=== PATIENT | female | born 1950 | race Caucasian/White ===

== ENCOUNTER → 2020-12-02 09:40 | Outpatient (BNVA) | payer MEDICARE, OTHER, SELFPAY | PROVIDERS: PCP Family Medicine | DX: N32.81 Overactive bladder (principal) | CPT/HCPCS: 99212 ==

== ENCOUNTER → 2021-01-21 09:20 | Outpatient (BNVA) | payer MEDICARE, OTHER, SELFPAY | PROVIDERS: PCP Family Medicine | DX: N32.81 Overactive bladder (principal) | CPT/HCPCS: Q3014 ==

== ENCOUNTER 2021-05-05 12:04 | Outpatient (REF) | payer MEDICARE, OTHER, SELFPAY ==
[2021-05-05 14:31] LABS: Blood Urea Nitrogen 16 mg/dL (9-16); Estimated Glomerular Filt Rate > 60
== END 2021-05-05 12:05 | disposition home or self-care (01) ==
LOC: HO.10HDL 12:04
PROVIDERS: Visit Provider Otolaryngology
DX: Z01.812 Encounter for preprocedural laboratory examination (principal); J38.6 Stenosis of larynx
CPT/HCPCS: 36415; 82565; 84520

== ENCOUNTER 2021-06-02 08:01 | Outpatient (REF) | payer MEDICARE, OTHER, SELFPAY ==
--- NOTE | ~2021-06-02 | CT_ITS ---
EXAMINATION: CT CHEST WITH CONTRAST CLINICAL INFORMATION: Congenital subglottic stenosis. COMPARISON: None TECHNIQUE: Multidetector volumetric CT imaging of the chest was obtained after the administration of 65 mL of Omnipaque 350 intravenous contrast without immediate adverse reactions. Axial MIP volume rendering provided. Sagittal and coronal reformatted images were obtained. This CT examination was performed using dose optimization techniques as appropriate, variously including the following: *Automated exposure control *Adjustment of mA and/or kV according to patient size (this includes techniques or standardized protocols for targeted exams where dose is matched to indication/reason for exam; i.e. extremities or head) *Use of iterative reconstruction technique DLP: 280 mGy-cm FINDINGS: LUNGS: There is a small 3 mm right upper lobe nodule axial image 22 series 5. The lungs are otherwise clear. No endobronchial or endotracheal lesion is seen. No airway narrowing is appreciated. MEDIASTINUM: The left lobe of the thyroid gland is not seen and may have been removed. There is a small calcification in the inferior right lobe. There are no enlarged hilar or mediastinal lymph nodes. The heart does not appear enlarged. There is no pericardial effusion. The thoracic aorta is normal in caliber. There may be a small esophageal hernia. PLEURA: There is no pleural effusion. No pleural mass or thickening. There is a small left posterior medial diaphragmatic hernia containing fat. AXILLA: No lymphadenopathy. UPPER ABDOMEN: There is a large ventral hernia containing fat and transverse colon. This is only partially visualized. There are left renal cysts, largest measuring 9.5 x 10 cm. There is a large partially visualized stone in the central left kidney. This measures at least 1.3 x 1.6 cm. There is central high attenuation in the right kidney questionable for a stone versus excreted contrast. OSSEOUS STRUCTURES: There are degenerative changes of the spine. CT/CT chest w con IMPRESSION: 3 mm right upper lobe pulmonary nodule. According to the UPDATED 2017 Fleischner Society recommendations, the advised follow-up imaging for less than 6 mm nodule: Low risk, no chest CT followup and high risk, optional chest CT followup in one year. No endobronchial or endotracheal lesion or airway narrowing seen. Left lobe of thyroid gland is not seen. Small posterior medial diaphragmatic hernia containing fat. Large partially visualized ventral hernia containing fat and transverse colon. Left renal cysts. Large left renal stone. Fleischner guidelines were followed.
[2021-06-02] MEDS: iohexoL 350 MG/ML 100 ML INFUS..BTL IV (09:26)
== END 2021-06-02 08:02 | disposition home or self-care (01) ==
LOC: HO.CT 08:01
PROVIDERS: PCP Family Medicine; Visit Provider Otolaryngology
DX: Q31.1 Congenital subglottic stenosis (principal)
CPT/HCPCS: 71260; Q9967

== ENCOUNTER 2021-08-17 12:34 | Emergency (ER) | payer MEDICARE, OTHER, SELFPAY ==
--- NOTE | ~2021-08-17 | US_ITS ---
EXAMINATION: US VENOUS ULTRASOUND WITH DOPPLER LOWER EXTREMITY, BILATERAL CLINICAL INFORMATION: Edema. COMPARISON: 06/26/2013. TECHNIQUE: Ultrasound of the deep veins is performed from the hip to the calf with compression sonography and color and pulse Doppler assessment. Spectral analysis with color-flow imaging is performed. FINDINGS: RIGHT: There is normal venous compression and respiratory variation and augmented flow. The visualized common femoral vein, superficial femoral vein, profunda femoral vein and popliteal vein shows no evidence of deep venous thrombosis. The calf veins were not visualized due to overlying subcutaneous edema. There is a 2.1 x 1.4 x 1.6 cm cyst in the right popliteal fossa with internal low-level echoes. LEFT: There is normal venous compression and respiratory variation and augmented flow. The visualized common femoral vein, superficial femoral vein, profunda femoral vein and popliteal vein shows no evidence of deep venous thrombosis. The calf veins were not visualized due to overlying subcutaneous edema. There is no significant popliteal fossa cyst. If the patient's symptoms persist, followup ultrasound in 5 days 7 days might be of value to exclude proximal propagation from a non-visualized calf vein. US/US venous duplex LE BI IMPRESSION: No DVT demonstrated in the lower extremities, with the caveat that the peroneal veins were not visualized due to overlying subcutaneous edema. There is a 2.1 cm cyst in the right popliteal fossa with internal low-level echoes. Clinical correlation for superimposed infection of this cyst is recommended, and a follow-up ultrasound should be obtained to ensure adequate resolution/stability.
--- NOTE | ~2021-08-17 | XR_ITS ---
EXAMINATION: XR CHEST CLINICAL INFORMATION: Leg swelling. COMPARISON: CT chest dated from 06/02/2021. TECHNIQUE: 2 views of the chest were obtained. FINDINGS: Normal appearance of the cardiomediastinal silhouette. No focal airspace opacities, pleural effusions or pneumothorax. No acute osseous abnormalities. Thoracic spondylosis. XR/XR chest 2V IMPRESSION: No acute cardiopulmonary findings.
[2021-08-17 12:56] VITALS: BP 150/80; PULSE 91; O2SAT 98
[2021-08-17 13:13] VITALS: BP 157/67; PULSE 88; RESP 18; TEMP 36.8; O2SAT 95; BMI 41.3
[2021-08-17 13:51] LABS: MANUAL DIFF FLAG NO
[2021-08-17 13:52] LABS: Basophils Absolute Auto 0.1 X10*3/uL (0.0-0.2); Basophils Percent Auto 0.7 % (0-2); Eosinophils Absolute Auto 0.4 X10*3/uL (0.0-0.4); Eosinophils Percent Auto 4.9 % (0-4); Hemoglobin 11.7 g/dl (12.0-16.0); Imm Gran Abs Auto 0.02 X10*3/uL (0.00-0.03); Imm Gran Pct Auto 0.2 % (0.0-0.4); Lymphocytes Absolute Auto 2.9 X10*3/uL (1.2-4.9); Lymphocytes Percent Auto 34.3 % (20-40); Mean Corpuscular HGB Conc 32.5 g/dl (31.0-35.0); Mean Corpuscular Hemoglobin 30.9 pg (27.0-33.0); Mean Platelet Volume 10.2 fL (9.4-12.3); Monocytes Absolute Auto 0.8 X10*3/uL (0.1-1.2); Monocytes Percent Auto 9.1 % (2-11); Neutrophils Absolute Auto 4.4 x10*3/uL (2.0-8.3); Neutrophils Percent Auto 50.8 % (45-73); Platelet Count 326 X10*3/uL (160-400); Red Blood Count 3.79 X10*6/uL (4.20-5.50); Red Cell Distribution Width 15.1 % (11.0-16.0); White Blood Count 8.6 X10*3/uL (4.8-10.8)
[2021-08-17 14:12] LABS: Anion Gap 14 (12-20); Blood Urea Nitrogen 13 mg/dL (9-16); Calcium 9.6 mg/dL (8.4-10.2); Carbon Dioxide 30 mmol/L (22-29); Chloride 103 mmol/L (96-108); Creatinine Clr Calc Pharmacy 79.1; Estimated Glomerular Filt Rate > 60; Glucose Random 133 mg/dL (60-115); Potassium 3.7 mmol/L (3.3-5.1); Sodium 143 mmol/L (135-145)
--- NOTE | 2021-08-17 15:23 | ED.EXTPRO ---
HPI - Extremity Problem General Chief complaint: General Medical <BRIDGER Rivas Last Filed: 08/17/21 17:56> Stated complaint: bilat feet swelling <BRIDGER Rivas Last Filed: 08/17/21 17:56> Time Seen by Provider: 08/17/21 15:12 <BRIDGER Rivas Last Filed: 08/17/21 17:56> Source: patient <BRIDGER Rivas Last Filed: 08/17/21 17:56> Mode of arrival: ambulatory <BRIDGER Rivas Last Filed: 08/17/21 17:56> Limitations: no limitations <BRIDGER Rivas Last Filed: 08/17/21 17:56> History of Present Illness HPI Narrative: 71-year-old female with a past medical history of hypertension and prediabetic presenting to the ED with complaints of bilateral lower extremity swelling over the past 4 days. She reports she has also noticed that she has had a cough with some wheezing. She denies ever having leg swelling in the past. She denies any recent travel, immobilization, recent surgery procedure, history of DVT or PE, PVD disease, recent illness, history of gout, fevers, chills, dizziness, headaches, neck pain/stiffness, trouble swallowing or breathing, chest pain or shortness of breath, dyspnea on exertion, orthopnea, palpitations, paresthesias, nausea/vomiting/diarrhea constipation, abdominal pain, weight gain, calf tenderness, history of cancer, rashes, recent falls or injuries or any other symptoms complaints or concerns at this time. <BRIDGER Rivas Last Filed: 08/17/21 17:56> MD Complaint: extremity swelling <BRIDGER Rivas Last Filed: 08/17/21 17:56> Onset (ago): day(s) (4) <BRIDGER Rivas Last Filed: 08/17/21 17:56> Pain Consistency: constant <BRIDGER Rivas Last Filed: 08/17/21 17:56> Location: left, right and lower extremity <BRIDGER Rivas Last Filed: 08/17/21 17:56> Radiation: none <BRIDGER Rivas Last Filed: 05/30/22 17:56> Relieving factors: nothing <BRIDGER Rivas Last Filed: 08/17/21 17:56> Exacerbating factors: nothing <BRIDGER Rivas - Last Filed: 08/17/21 17:56> Associated symptoms: denies other symptoms <BRIDGER Rivas Last Filed: 08/17/21 17:56> Related Data Home medications: Home Medications Medication Instructions Recorded Confirmed amitriptyline 25 mg tablet 25 - 50 mg PO BEDTIME PRN 12/02/20 12/02/20 amlodipine 10 mg tablet 10 mg PO DAILY 12/02/20 12/02/20 hydrochlorothiazide 12.5 mg tablet 12.5 mg PO DAILY 12/02/20 12/02/20 metformin 500 mg tablet,extended 500 mg PO DAILY 12/02/20 12/02/20 release 24 hr metoprolol succinate 100 mg 100 mg PO DAILY 12/02/20 12/02/20 tablet,extended release 24 hr antiarthritic combination no.2 900 mg PO 01/21/21 mg tablet (glucosamine-chondroitin) calcium carbonate 600 mg calcium 600 mg PO DAILY 01/21/21 (1,500 mg) tablet (Calcium) cholecalciferol (vitamin D3) 25 25 mcg PO DAILY 01/21/21 mcg (1,000 unit) capsule losartan 100 mg tablet 100 mg PO DAILY 01/21/21 Previous Rx's Medication Instructions Recorded oxybutynin chloride 10 mg 10 mg PO DAILY 30 Days #30 tab 12/09/20 tablet,extended release 24 hr vibegron 75 mg tablet (Gemtesa) 75 mg PO DAILY 30 Days #30 tab 01/21/21 compr.stocking,knee,long,x-lrg #12 ea 08/17/21 <BRIDGER Rivas - Last Filed: 08/17/21 17:56> Allergies/Adverse reactions: Allergies Allergy/AdvReac Type Severity Reaction Status Date / Time acetaminophen [From PERCOCET] AdvReac Unknown Headache Verified 01/21/21 09:21 hydrocodone [Vicodin] AdvReac Unknown Headache Verified 01/21/21 09:21 oxycodone [Percocet] AdvReac Unknown headache Verified 01/21/21 09:21 vicodin AdvReac Unknown headaches Uncoded 12/02/20 09:58 <BRIDGER Rivas Last Filed: 08/17/21 17:56> Review of Systems Review of Systems: Constitutional : No Weight loss, No Fever, No Chills, No Night Sweats, No Fatigue, No Malaise ENT/Mouth : No Hearing loss, No Ear Pain, No Nasal Congestion, No Sinus Pain, No Hoarseness, No sore throat, No Rhinorrhea, No Swallowing Difficulty Eyes: No Eye Pain, No Swelling, No Redness, No Foreign Body, No Discharge, No Vision Changes Cardiovascular : + lower extremity bilateral leg swelling, No Chest Pain, No SOB, No Dyspnea on Exertion, No Orthopnea, No Palpitations Respiratory : + cough/wheezing, No Sputum, No Smoke Exposure, No Dyspnea Gastrointestinal : No Nausea, No Vomiting, No Diarrhea, No Constipation, No abdominal Pain, No Hematochezia, No Melena Genitourinary : no irregular bleeding, No Dysuria, No Urinary Frequency, No Hematuria, No Urinary Incontinence, No Urgency, No Flank Pain, No Urinary Flow Changes, No Hesitancy Musculoskeletal : No joint pain, No Myalgias, No Joint Swelling Skin : No Skin Lesions, No rash Neuro : No Weakness, No Numbness, No Paresthesias, No Loss of Consciousness, No Dizziness, No Headache Psych : No Anxiety/Panic, No Depression, No SI/HI/AH/VH, No Social Issues, Heme/Lymph: No Bruising, No Bleeding,No Lymphadenopathy Endocrine : No Polyuria, No Polydipsia, No Temperature Intolerance <BRIDGER Rivas - Last Filed: 08/17/21 17:56> Yes all other systems are reviewed and are negative <BRIDGER Rivas Last Filed: 08/17/21 17:56> [facility] Past Medical History Attestation statement: The following information was validated with the patient. <BRIDGER Rivas Last Filed: 08/17/21 17:56> Source: old records reviewed and nursing notes reviewed <BRIDGER Rivas Last Filed: 08/17/21 17:56> Medical History: Medical History Aftercare following right elbow joint replacement surgery delivery affecting Frequency of urination Renal cyst Renal stone Urgency-frequency syndrome <BRIDGER Rivas Last Filed: 08/17/21 17:56> Surgical History: Surgical History H/O total hysterectomy <BRIDGER Rivas - Last Filed: 08/17/21 17:56> Social History Social History: Social History Alcohol intake: never Patient Tobacco Use Status: Never used Tobacco Advance Directives: No Advance Directives Information Provided: No <BRIDGER Rivas - Last Filed: 08/17/21 17:56> Physical Exam Vital Signs: Vital Signs: Last Vital Signs Temp 98.3 F 08/17/21 13:13 Pulse 75 08/17/21 16:35 Resp 16 08/17/21 16:35 BP 165/71 H 08/17/21 16:35 Pulse Ox 96 08/17/21 16:35 BMI result Body Mass Index 41.3 vital signs have been reviewed as normal and appeared to be correct. Blood pressure 157/67. Heart rate normal. Respiration rate normal. Temperature normal. Oxygen saturation normal. <BRIDGER Rivas - Last Filed: 08/17/21 17:56> Appearance: Alert. Oriented X3. No acute distress. Head: Normal external exam. Normocephalic. Atraumatic. Eyes: PERRLA. EOMI. Conjunctiva and sclera normal. Eyelids normal. ENT: Pharynx normal. Uvula midline. Moist mucous membranes. No lesions/ulcerations or masses noted on the tongue. Normal voice. No trismus noted. No drooling noted. No muffled voice noted. Neck: Normal inspection. Neck supple. FROM. No adenopathy. Thyroid Normal. No tracheal deviation noted. No crepitus is noted. No meningeal signs. No neck mass noted. No signs of trauma noted. CVS: Normal heart rate and rhythm. Heart sound normal. Pulses normal throughout. No murmurs/rales/gallops. Respiratory: No respiratory distress. Painless inspiration. Breath sounds normal. No wheezes/rales/rhonchi noted. Chest nontender. No crepitus is noted. No signs of trauma noted. No accessory muscle usage noted or decreased air movement noted. No signs of trauma. Abdomen: Soft and nontender. Bowel sounds normal in all 4 quadrants. No distention noted. No organomegaly noted. No visible injury noted. Back: Full range of motion noted. Nontender. No signs of trauma. Patient neuro intact bilaterally and distally on all 4 extremities. Patient's reflexes intact bilaterally and distally on all 4 extremities. No rashes/lesion/induration/fluctuance or signs of infection noted. Skin: Skin warm and dry. Normal skin color. Normal skin turgor. No rashes/lesions/lacerations noted. Extremities: + b/l lower extremity edema although no pitting edema. No calf tenderness is noted. Extremities exhibit normal range of motion and nontender. Neuro: Oriented X 3. No motor deficit. No sensory deficit. Reflexes normal. Normal steady gait. No focal neuro deficits noted. CN's II-XII intact bilaterally? Vascular: + radial pulses/+ 2 distal pedal pulses/+2 dorsalis pedis b/l. Normal cap refill. No cyanosis noted to upper extremity nails and lower extremity toes nails. <BRIDGER Rivas - Last Filed: 08/17/21 17:56> Course Course Course Narrative: 16:15pm - 71-year-old female with a past medical history of hypertension and prediabetic presenting to the ED with complaints of bilateral lower extremity swelling over the past 4 days. She reports she has also noticed that she has had a cough with some wheezing. She denies ever having leg swelling in the past. Plan: Labs, chest x-ray, EKG and re-evaluate <BRIDGER Rivas - Last Filed: 08/17/21 17:56> Reevaluation(s) Reevaluation #1: - labs return patient mild anemia. Carbon dioxide 30. Random glucose 133. BNP 47. Otherwise all other labs are within normal limits. - therefore at this time venous duplex ultrasound is pending of lower extremity to evaluate for possible DVT and chest x-ray patient most likely pedal edema if chest x-ray and venous duplex ultrasound of bilateral lower extremity negative. <BRIDGER Rivas - Last Filed: 08/17/21 17:56> Time: 17:28 <BRIDGER Rivas - Last Filed: 08/17/21 17:56> Reevaluation #2: - Venous duplex ultrasound of bilateral lower extremity negative for any DVT although reports possible superimposed infection where the cyst is located although patient does not have any erythema or tenderness to the posterior knee or even to the calf aspect the only reason the ultrasound was done due to the patient's lower extremity edema to rule out DVT. No signs of infection not consistent with septic joint. She has full range of motion of bilateral knees. - chest x-ray within normal limits. - patient most likely pedal edema. Will instruct patient to use compression stocking and to follow-up with PCP and to return if any new or worsening symptoms. Patient understands agrees with this plan. <BRIDGER Rivas - Last Filed: 08/17/21 17:56> Time: 17:52 <BRIDGER Rivas - Last Filed: 08/17/21 17:56> MDM - Extremity (Nontraumatic) Medical Records Attestation: I reviewed the patient's medical records. <BRIDGER Rivas - Last Filed: 08/17/21 17:56> Lab Data Attestation: I reviewed the patient's lab results. <BRIDGER Rivas - Last Filed: 08/17/21 17:56> Result diagrams: : 08/17/21 13:46 08/17/21 13:46 <BRIDGER Rivas - Last Filed: 08/17/21 17:56> Labs: Lab Results 08/17/21 08/17/21 08/17/21 Range/Units 13:46 13:46 13:46 WBC 8.6 (4.8-10.8) X10*3/uL RBC 3.79 L (4.20-5.50) X10*6/uL Hgb 11.7 L (12.0-16.0) g/dl Hct 36.0 L (37.0-47.0) % MCV 95.0 (80.0-98.0) fL MCH 30.9 (27.0-33.0) pg MCHC 32.5 (31.0-35.0) g/dl RDW 15.1 (11.0-16.0) % Plt Count 326 (160-400) X10*3/uL MPV 10.2 (9.4-12.3) fL Immature Gran % (Auto) 0.2 (0.0-0.4) % Neut % (Auto) 50.8 (45-73) % Lymph % (Auto) 34.3 (20-40) % [place] % (Auto) 9.1 (2-11) % Eos % (Auto) 4.9 H (0-4) % Baso % (Auto) 0.7 (0-2) % Lymph # (Auto) 2.9 (1.2-4.9) X10*3/uL [place] # (Auto) 0.8 (0.1-1.2) X10*3/uL Eos # (Auto) 0.4 (0.0-0.4) X10*3/uL Baso # (Auto) 0.1 (0.0-0.2) X10*3/uL Abs Immat Gran (auto) 0.02 (0.00-0.03) X10*3/uL Absolute Neuts (auto) 4.4 (2.0-8.3) x10*3/uL Absolute Nucleated RBC 0.000 (0.0-0.012) X10*3/uL Nucleated RBC % (auto) 0.0 (0.0-0.2) /100WBC Sodium 143 (135-145) mmol/L Potassium 3.7 (3.3-5.1) mmol/L Chloride 103 (96-108) mmol/L Carbon Dioxide 30 H (22-29) mmol/L Anion Gap 14 (12-20) BUN 13 (9-16) mg/dL Creatinine 0.80 (0.5-1.4) mg/dL Estim Creat Clear Calc 79.1 Estimated GFR > 60 Random Glucose 133 H (60-115) mg/dL Calcium 9.6 (8.4-10.2) mg/dL Total Bilirubin 1.0 (0.0-1.0) mg/dL Direct Bilirubin 0.4 (0.0-0.5) mg/dL AST 15 (5-31) U/L ALT 15 (0-31) U/L Alkaline Phosphatase 100 (39-117) U/L B-Natriuretic Peptide 47 (<100) pg/mL Total Protein 6.8 (6.5-8.0) g/dL Albumin 4.1 (3.5-5.0) g/dL <BRIDGER Rivas - Last Filed: 08/17/21 17:56> Imaging Data Venous duplex ultrasound of bilateral lower extremity: Attestation: I personally reviewed and interpreted this imaging study as follows: <BRIDGER Rivas Last Filed: 08/17/21 17:56> Radiologist's impression: FINDINGS: RIGHT: There is normal venous compression and respiratory variation and augmented flow. The visualized common femoral vein, superficial femoral vein, profunda femoral vein and popliteal vein shows no evidence of deep venous thrombosis. The calf veins were not visualized due to overlying subcutaneous edema. There is a 2.1 x 1.4 x 1.6 cm cyst in the right popliteal fossa with internal low-level echoes. LEFT: There is normal venous compression and respiratory variation and augmented flow. The visualized common femoral vein, superficial femoral vein, profunda femoral vein and popliteal vein shows no evidence of deep venous thrombosis. The calf veins were not visualized due to overlying subcutaneous edema.? There is no significant popliteal fossa cyst. If the patient's symptoms persist, followup ultrasound in 5 days 7 days might be of value to exclude proximal propagation from a non-visualized calf vein. US/US venous duplex LE BI IMPRESSION: No DVT demonstrated in the lower extremities, with the caveat that the peroneal veins were not visualized due to overlying subcutaneous edema. ? There is a 2.1 cm cyst in the right popliteal fossa with internal low-level echoes. Clinical correlation for superimposed infection of this cyst is recommended, and a follow-up ultrasound should be obtained to ensure adequate resolution/stability. <BRIDGER Rivas Last Filed: 08/17/21 17:56> Chest x-ray: Attestation: I personally reviewed and interpreted this imaging study as follows: <BRIDGER Rivas Last Filed: 08/17/21 17:56> Radiologist's impression: FINDINGS: Normal appearance of the cardiomediastinal silhouette. No focal airspace opacities, pleural effusions or pneumothorax. No acute osseous abnormalities. Thoracic spondylosis. XR/XR chest 2V IMPRESSION: No acute cardiopulmonary findings. <BRIDGER Rivas Last Filed: 08/17/21 17:56> ECG Data Attestation EKG: I personally reviewed and interpreted this ECG as follows: <BRIDGER Rivas Last Filed: 08/17/21 17:56> ECG interpretation date: 08/17/21 <BRIDGER Rivas - Last Filed: 08/17/21 17:56> ECG interpretation time: 16:23 <BRIDGER Rivas - Last Filed: 08/17/21 17:56> Prior ECG tracings: not available for review <BRIDGER Rivas - Last Filed: 08/17/21 17:56> Interpretation: Normal sinus rhythm with a ventricular rate of 78 with a normal IA interval normal QRS duration and nonspecific ST abnormalities no acute ischemic change are noted. No prior EKGs in our system to compare to at this time. <BRIDGER Rivas - Last Filed: 08/17/21 17:56> Discharge Plan Discharge Clinical Impression: Pedal edema <BRIDGER Rivas - Last Filed: 08/17/21 17:56> Patient Disposition: Home, Self-Care <BRIDGER Rivas - Last Filed: 08/17/21 17:56> Instructions: Leg Edema (ED) <BRIDGER Rivas - Last Filed: 08/17/21 17:56> Prescriptions: New (DME) compr.stocking,knee,long,x-lrg Misc See Rx Instructions .Route Qty: 12 0RF Rx Instructions: As directed No Action oxybutynin chloride 10 mg tablet extended release 24hr 10 mg PO DAILY 30 Days Qty: 30 0RF metoprolol succinate 100 mg tablet extended release 24 hr 100 mg PO DAILY 0RF amitriptyline 25 mg tablet 25 - 50 mg PO BEDTIME PRN0RF amlodipine 10 mg tablet 10 mg PO DAILY 0RF metformin 500 mg tablet extended release 24 hr 500 mg PO DAILY 0RF hydrochlorothiazide 12.5 mg tablet 12.5 mg PO DAILY 0RF calcium carbonate [Calcium 600] 600 mg calcium (1,500 mg) tablet 600 mg PO DAILY 0RF cholecalciferol (vitamin D3) 25 mcg (1,000 unit) capsule 25 mcg PO DAILY 0RF glucosamine-chondroitin 900 mg tablet PO 0RF losartan 100 mg tablet 100 mg PO DAILY 0RF Gemtesa 75 mg tablet 75 mg PO DAILY 30 Days Qty: 30 3RF <BRIDGER Rivas Last Filed: 08/17/21 17:56> Referrals: Igor Farris DO [Primary Care Provider] - 2 days <BRIDGER Rivas - Last Filed: 08/17/21 17:56>
[2021-08-17 15:43] LABS: B Type Natriuretic Peptide 47 pg/mL (<100)
--- NOTE | 2021-08-17 16:18 | ECG_ITS ---
Test Reason : LEG SWELLING Blood Pressure : / mmHG Vent. Rate : 078 BPM Atrial Rate : 078 BPM P-R Int : 156 ms QRS Dur : 098 ms QT Int : 410 ms P-R-T Axes : 035 033 033 degrees QTc Int : 467 ms Normal sinus rhythm Nonspecific ST abnormality Abnormal ECG No previous ECGs available Referred By: Erlinda Meadows Electronically Signed By:LOULOU NATHAN MD
[2021-08-17 16:24] VITALS: PULSE 88; RESP 18; O2SAT 95
[2021-08-17] MEDS: Albuterol Sulfate (0.083%) 2.5 MG/3 ML VIAL.NEB 5 MG INHALE (16:24)
[2021-08-17] MEDS: hydrOXYzine HCL 25 MG TABLET PO (16:29)
[2021-08-17] MEDS: predniSONE 20 MG TABLET 60 MG PO (16:29)
[2021-08-17 16:35] VITALS: BP 165/71; PULSE 75; RESP 16; O2SAT 96
[2021-08-17 16:36] LABS: Alanine Aminotransferase 15 U/L (0-31); Albumin Level 4.1 g/dL (3.5-5.0); Alkaline Phosphatase 100 U/L (39-117); Aspartate Amino Transferase 15 U/L (5-31); Bilirubin Direct 0.4 mg/dL (0.0-0.5); Total Protein 6.8 g/dL (6.5-8.0)
[2021-08-17 16:38] LABS: Add Laboratory Test SN
== END 2021-08-17 18:34 | disposition home or self-care (01) ==
PROVIDERS: Physician Assistant Medical; Emergency Provider Emergency Medicine; PCP Family Medicine
DX: R60.0 Localized edema (principal); I10 Essential (primary) hypertension; R06.02 Shortness of breath; R73.03 Prediabetes; Z79.899 Other long term (current) drug therapy
CPT/HCPCS: 36415; 71046; 80048; 80076; 83880; 85025; 93005; 93970; 94640; 99283; 99284

== ENCOUNTER 2022-04-12 06:58 | Emergency (ER) | payer MEDICARE, OTHER, SELFPAY ==
--- NOTE | ~2022-04-12 | XR_ITS ---
EXAMINATION: XR LUMBOSACRAL SPINE CLINICAL INFORMATION: Right-sided sciatica. COMPARISON: CT abdomen 07/27/2018 TECHNIQUE: 5 views of the lumbosacral spine. FINDINGS: There is normal lumbar segmentation with 5 nonrib-bearing lumbar vertebrae with mild dextrocurvature and normal lumbar lordosis. There is no lumbar vertebral compression or destructive process. Again, there are multilevel progressive degenerative disc changes at all levels with disc narrowing. There is associated variable endplate sclerosis and vertebral osteophytes. No erosive changes. There is facet degeneration L5-S1. There is a borderline grade 0-1 spondylolisthesis at lumbosacral junction. The SI joints and visualized sacrum are unremarkable. There is a chronic calculus left urinary tract overlying left transverse process L3 measuring 1.6 x 2.0 cm. XR/XR lumbar spine 2-3V IMPRESSION: 1. Progressive multilevel degenerative disc changes and facet degeneration. 2. Borderline grade 0-1 spondylolisthesis lumbosacral junction. 3. Chronic calculus left urinary tract overlying left transverse process L3.
[2022-04-12 07:11] VITALS: BP 141/88; BP 159/55; PULSE 80; PULSE 82; RESP 16; TEMP 36.9; O2SAT 96; O2SAT 97; BMI 38.6
--- NOTE | 2022-04-12 07:17 | ED.BACK ---
HPI - Back Pain/Injury General Chief Complaint: Back Pain/Injury Stated Complaint: Lower back pain Time Seen by Provider: 04/12/22 07:16 Source: patient Mode of arrival: ambulatory Limitations: no limitations History of Present Illness HPI Narrative: Patient being treated for sciatica, pain in her right buttock. She is going to physical therapy but the pain is worse today. Patient is unable to get around her apartment MD elicited complaint: back pain Pertinent past history: prior back pain Onset (ago): month(s) Timing: constant Severity: moderate Quality: sharp Location: lumbar spine and right lower back Radiation: right upper leg Relieving factors: none Related Data Home Medications Medication Instructions Recorded Confirmed amitriptyline 25 mg tablet 25 - 50 mg PO BEDTIME PRN 12/02/20 12/02/20 amlodipine 10 mg tablet 10 mg PO DAILY 12/02/20 12/02/20 hydrochlorothiazide 12.5 mg tablet 12.5 mg PO DAILY 12/02/20 12/02/20 metformin 500 mg tablet,extended 500 mg PO DAILY 12/02/20 12/02/20 release 24 hr metoprolol succinate 100 mg 100 mg PO DAILY 12/02/20 12/02/20 tablet,extended release 24 hr antiarthritic combination no.2 900 mg PO 01/21/21 mg tablet (glucosamine-chondroitin) calcium carbonate 600 mg calcium 600 mg PO DAILY 01/21/21 (1,500 mg) tablet (Calcium) cholecalciferol (vitamin D3) 25 25 mcg PO DAILY 01/21/21 mcg (1,000 unit) capsule losartan 100 mg tablet 100 mg PO DAILY 01/21/21 Previous Rx's Medication Instructions Recorded oxybutynin chloride 10 mg 10 mg PO DAILY OAB 30 days #30 tabs 12/09/20 tablet,extended release 24 hr vibegron 75 mg tablet (Gemtesa) 75 mg PO DAILY OAB 30 days #30 tabs 01/21/21 compr.stocking,knee,long,x-lrg #12 ea 08/17/21 cephalexin 500 mg capsule 500 mg PO Q6H 7 days #28 caps 04/12/22 cyclobenzaprine 10 mg tablet 10 mg PO TID PRN muscle spasm #20 04/12/22 tabs naproxen 500 mg tablet (Naprosyn) 500 mg PO BID #20 tabs 04/12/22 Allergies Allergy/AdvReac Type Severity Reaction Status Date / Time acetaminophen [From PERCOCET] AdvReac Unknown Headache Verified 01/21/21 09:21 hydrocodone [Vicodin] AdvReac Unknown Headache Verified 01/21/21 09:21 oxycodone [Percocet] AdvReac Unknown headache Verified 01/21/21 09:21 vicodin AdvReac Unknown headaches Uncoded 12/02/20 09:58 Review of Systems Review of Systems: Yes all other systems are reviewed and are negative Musculoskeletal: Musculoskeletal: Reports back pain Neurologic: Denies Sensory deficit (Neuro) [facility] Past Medical History Medical History Aftercare following right elbow joint replacement surgery delivery affecting Frequency of urination Renal cyst Renal stone Urgency-frequency syndrome Surgical History H/O total hysterectomy Social History Social History Alcohol intake: never Patient Tobacco Use Status: Never used Tobacco Smoked in Last 30 Days: No Use of substances other than those prescribed or required for medical reasons: No Substance Use Type: Caffiene Substance Use Frequency: Daily Last Used Substance: Just Prior to Admission Any prior treatment program specific to substance use: No Advance Directives: No Advance Directives Information Provided: No Physical Exam Vital Signs: Vital Signs: Last Vital Signs Temp 97.7 F 04/12/22 12:45 Pulse 68 04/12/22 12:45 Resp 20 04/12/22 12:45 BP 144/64 H 04/12/22 12:45 Pulse Ox 97 04/12/22 12:45 O2 Del Method 04/12/22 12:45 BMI result Body Mass Index 38.6 Const: Other: obese female slightly unkept Orientation/consciousness: oriented to person and patient oriented x3 Limitations: no limitations HEENT: Head: Yes normal to inspection Ears: external ears normal General nose exam: Normal external nose present Mouth: Normal oral and palatal mucosa present and oropharynx normal Throat: Yes posterior oropharynx normal Eyes: General: appearance normal, both eyes and all related structures Neck: Other: supple Neck: Yes normal visual inspection Chest: Chest palpation & inspection: normal inspection of the chest Resp: Auscultation: clear to auscultation bilaterally Cardio: Jugular venous distension: no JVD Rate: regular rate Rhythm: regular rhythm Heart sounds: S1 normal heart sound present and S2 normal heart sound present GI: Inspection: Yes normal to inspection Palpation (GI): Soft to palpation, nontender and No hepatosplenomegaly present Auscultation: normal bowel sounds Back/Spine/Pelvis: Other: Right SI joint pain and right sciatica Skin: General skin exam: no rashes or lesions noted Neuro: General: oriented to person and patient oriented x3 Cranial nerves: Yes CN's II-XII intact bilaterally Motor exam (neuro): 5/5 motor strength present throughout Sensory Exam: No Sensory deficit (Neuro) Extrem: General: Yes normal to inspection Psych: Appearance: grossly normal Course Reevaluation(s) Reevaluation #1: Patient was unable to care for herself properly after physical therapy evaluation and was transfered to a SNF Time: 06:27 Medications Administered Discontinued Medications Generic Name Dose Route Start Last Admin Trade Name Freq PRN Reason Stop Dose Admin Cephalexin HCl 500 mg 04/12/22 09:09 04/12/22 09:33 Cephalexin 500 Mg Capsule PO 04/12/22 09:10 500 mg ONCE ONE Administration Cyclobenzaprine HCl 10 mg 04/12/22 07:24 04/12/22 07:40 Cyclobenzaprine Hcl 10 Mg Tablet PO 04/12/22 07:25 10 mg ONCE ONE Administration Ketorolac Tromethamine 60 mg 04/12/22 07:24 04/12/22 07:41 Ketorolac Tromethamine 60 Mg/2 Ml Vial IM 04/12/22 07:25 60 mg ONCE ONE Administration Medical Decision Making Differential Diagnosis sciatica, lumbar strain, UTI were all considered Consult Healthcare Provider Physical therapy was consulted and evaluated the patient for safety Lab Data 04/12/22 07:49 04/12/22 07:49 Labs: Lab Results 04/12/22 04/12/22 04/12/22 Range/Units 07:49 07:49 07:51 WBC 7.7 (4.8-10.8) X10*3/uL RBC 3.42 L (4.20-5.50) X10*6/uL Hgb 10.9 L (12.0-16.0) g/dl Hct 32.3 L (37.0-47.0) % MCV 94.4 (80.0-98.0) fL MCH 31.9 (27.0-33.0) pg MCHC 33.7 (31.0-35.0) g/dl RDW 15.3 (11.0-16.0) % Plt Count 332 (160-400) X10*3/uL MPV 11.1 (9.4-12.3) fL Immature Gran % (Auto) 0.5 H (0.0-0.4) % Neut % (Auto) 63.9 (45-73) % Lymph % (Auto) 20.9 (20-40) % Bertie % (Auto) 9.5 (2-11) % Eos % (Auto) 4.4 H (0-4) % Baso % (Auto) 0.8 (0-2) % Lymph # (Auto) 1.6 (1.2-4.9) X10*3/uL Bertie # (Auto) 0.7 (0.1-1.2) X10*3/uL Eos # (Auto) 0.3 (0.0-0.4) X10*3/uL Baso # (Auto) 0.1 (0.0-0.2) X10*3/uL Abs Immat Gran (auto) 0.04 H (0.00-0.03) X10*3/uL Absolute Neuts (auto) 4.9 (2.0-8.3) x10*3/uL Absolute Nucleated RBC 0.000 (0.0-0.012) X10*3/uL Nucleated RBC % (auto) 0.0 (0.0-0.2) /100WBC Sodium 144 (135-145) mmol/L Potassium 4.1 (3.3-5.1) mmol/L Chloride 107 (96-108) mmol/L Carbon Dioxide 28 (22-29) mmol/L Anion Gap 13 (12-20) BUN 14 (9-16) mg/dL Creatinine 0.83 (0.5-1.4) mg/dL Estim Creat Clear Calc 73.3 Estimated GFR > 60 Random Glucose 141 H (60-115) mg/dL Calcium 9.7 (8.4-10.2) mg/dL Urine Color Urine Appearance Urine pH (5.0-9.0) Ur Specific Hayward (1.005-1.025) Urine Protein (Neg-Trace) mg/dL Urine Glucose (UA) (Negative) mg/dL Urine Ketones (Negative) mg/dL Urine Blood (Negative) Urine Nitrite (Negative) Ur Leukocyte Esterase (Negative) Urine RBC (0-2) /HPF Urine WBC (0-5) /HPF Ur Squamous Epith Cells (0-2) /HPF Urine Bacteria (None Seen) Hyaline Casts (0-2) /LPF Influenza Type A (PCR) NEGATIVE (Negative) Influenza Type B (PCR) NEGATIVE (Negative) RSV RNA Qual (PCR) NEGATIVE (Negative) SARS-CoV-2 RNA (RT-PCR) NEGATIVE (Negative) 04/12/22 Range/Units 08:38 WBC (4.8-10.8) X10*3/uL RBC (4.20-5.50) X10*6/uL Hgb (12.0-16.0) g/dl Hct (37.0-47.0) % MCV (80.0-98.0) fL MCH (27.0-33.0) pg MCHC (31.0-35.0) g/dl RDW (11.0-16.0) % Plt Count (160-400) X10*3/uL MPV (9.4-12.3) fL Immature Gran % (Auto) (0.0-0.4) % Neut % (Auto) (45-73) % Lymph % (Auto) (20-40) % Bertie % (Auto) (2-11) % Eos % (Auto) (0-4) % Baso % (Auto) (0-2) % Lymph # (Auto) (1.2-4.9) X10*3/uL Bertie # (Auto) (0.1-1.2) X10*3/uL Eos # (Auto) (0.0-0.4) X10*3/uL Baso # (Auto) (0.0-0.2) X10*3/uL Abs Immat Gran (auto) (0.00-0.03) X10*3/uL Absolute Neuts (auto) (2.0-8.3) x10*3/uL Absolute Nucleated RBC (0.0-0.012) X10*3/uL Nucleated RBC % (auto) (0.0-0.2) /100WBC Sodium (135-145) mmol/L Potassium (3.3-5.1) mmol/L Chloride (96-108) mmol/L Carbon Dioxide (22-29) mmol/L Anion Gap (12-20) BUN (9-16) mg/dL Creatinine (0.5-1.4) mg/dL Estim Creat Clear Calc Estimated GFR Random Glucose (60-115) mg/dL Calcium (8.4-10.2) mg/dL Urine Color Yellow Urine Appearance Clear Urine pH 8.0 (5.0-9.0) Ur Specific Hayward <= 1.005 (1.005-1.025) Urine Protein Negative (Neg-Trace) mg/dL Urine Glucose (UA) Negative (Negative) mg/dL Urine Ketones Negative (Negative) mg/dL Urine Blood Negative (Negative) Urine Nitrite Negative (Negative) Ur Leukocyte Esterase Moderate (2+) H (Negative) Urine RBC 0-2 (0-2) /HPF Urine WBC 11-20 H (0-5) /HPF Ur Squamous Epith Cells 0-2 (0-2) /HPF Urine Bacteria 4+ (None Seen) Hyaline Casts 0-2 (0-2) /LPF Influenza Type A (PCR) (Negative) Influenza Type B (PCR) (Negative) RSV RNA Qual (PCR) (Negative) SARS-CoV-2 RNA (RT-PCR) (Negative) Independent Interpretation I performed an independent interpretation of an: Plain X-Ray Interpretation: Lumbar film was interpreted by which which showed DJD Social Determinants unable to care for herself at home Discharge Plan Discharge Clinical Impression: Strain of lumbar region, Lumbar radiculopathy, Acute UTI Patient Disposition: Xfer SNF Transfer Details: rehab Instructions: Acute Low Back Pain (ED), Lumbar Radiculopathy (ED), Urinary Tract Infection in Older Adults (ED) Prescriptions: New cyclobenzaprine 10 mg tablet 10 mg PO TID PRN (Reason: muscle spasm) Qty: 20 0RF naproxen [Naprosyn] 500 mg tablet 500 mg PO BID Qty: 20 0RF cephalexin 500 mg capsule 500 mg PO Q6H 7 Days Qty: 28 0RF No Action oxybutynin chloride 10 mg tablet extended release 24hr 10 mg PO DAILY 30 Days Qty: 30 0RF (DME) compr.stocking,knee,long,x-lrg Misc See Rx Instructions .Route Qty: 12 0RF Rx Instructions: As directed metoprolol succinate 100 mg tablet extended release 24 hr 100 mg PO DAILY amitriptyline 25 mg tablet 25 - 50 mg PO BEDTIME PRN amlodipine 10 mg tablet 10 mg PO DAILY metformin 500 mg tablet extended release 24 hr 500 mg PO DAILY hydrochlorothiazide 12.5 mg tablet 12.5 mg PO DAILY calcium carbonate [Calcium 600] 600 mg calcium (1,500 mg) tablet 600 mg PO DAILY cholecalciferol (vitamin D3) 25 mcg (1,000 unit) capsule 25 mcg PO DAILY glucosamine-chondroitin 900 mg tablet PO losartan 100 mg tablet 100 mg PO DAILY Gemtesa 75 mg tablet 75 mg PO DAILY 30 Days Qty: 30 3RF Referrals: [facility] [Outside] Igor Farris DO [Primary Care Provider] - 1 week Interventions: ED Discharge Assessment Last Done: 04/12/22 14:56 Discharge Date/Time: 04/12/22 14:57
[2022-04-12] MEDS: Cyclobenzaprine HCl 10 MG TABLET PO (07:40)
[2022-04-12] MEDS: Ketorolac Tromethamine 60 MG/2 ML VIAL IM (07:41)
[2022-04-12 07:59] LABS: MANUAL DIFF FLAG NO
[2022-04-12 08:00] LABS: Basophils Absolute Auto 0.1 X10*3/uL (0.0-0.2); Basophils Percent Auto 0.8 % (0-2); Eosinophils Absolute Auto 0.3 X10*3/uL (0.0-0.4); Eosinophils Percent Auto 4.4 % (0-4); Hematocrit 32.3 % (37.0-47.0); Hemoglobin 10.9 g/dl (12.0-16.0); Imm Gran Abs Auto 0.04 X10*3/uL (0.00-0.03); Imm Gran Pct Auto 0.5 % (0.0-0.4); Lymphocytes Absolute Auto 1.6 X10*3/uL (1.2-4.9); Lymphocytes Percent Auto 20.9 % (20-40); Mean Corpuscular HGB Conc 33.7 g/dl (31.0-35.0); Mean Corpuscular Hemoglobin 31.9 pg (27.0-33.0); Mean Corpuscular Volume 94.4 fL (80.0-98.0); Mean Platelet Volume 11.1 fL (9.4-12.3); Monocytes Absolute Auto 0.7 X10*3/uL (0.1-1.2); Monocytes Percent Auto 9.5 % (2-11); Neutrophils Absolute Auto 4.9 x10*3/uL (2.0-8.3); Neutrophils Percent Auto 63.9 % (45-73); Platelet Count 332 X10*3/uL (160-400); Red Blood Count 3.42 X10*6/uL (4.20-5.50); Red Cell Distribution Width 15.3 % (11.0-16.0); White Blood Count 7.7 X10*3/uL (4.8-10.8)
[2022-04-12 08:12] LABS: Anion Gap 13 (12-20); Blood Urea Nitrogen 14 mg/dL (9-16); Calcium 9.7 mg/dL (8.4-10.2); Carbon Dioxide 28 mmol/L (22-29); Chloride 107 mmol/L (96-108); Creatinine Clr Calc Pharmacy 73.3; Estimated Glomerular Filt Rate > 60; Glucose Random 141 mg/dL (60-115); Potassium 4.1 mmol/L (3.3-5.1); Sodium 144 mmol/L (135-145)
[2022-04-12 08:42] LABS: Influenza A PCR NEGATIVE (Negative); Influenza B PCR NEGATIVE (Negative); Resp Syncy Virus RNA Qual PCR NEGATIVE (Negative); SARS COV2 PCR INHOUSE NEGATIVE (Negative)
[2022-04-12 08:55] LABS: Appearance Urine Clear; Color Urine Yellow; Glucose Urine UA Negative (Negative); Leukocyte Esterase Urine Moderate (2+) (Negative); Nitrite Urine Negative (Negative); Specific Gravity - Urine <= 1.005 (1.005-1.025); UMIC TRIGGER UACC YES; Urine Blood Negative (Negative); Urine Ketones Negative (Negative); Urine Protein Negative (Neg-Trace)
[2022-04-12 09:00] LABS: Bacteria Urine 4+ (None Seen); Hyaline Casts Urine 0-2 /LPF (0-2); RBC Urine 0-2 /HPF (0-2); Squamous Epithelial Cell Urine 0-2 /HPF (0-2); UACC Culture Trigger YES
[2022-04-12] MEDS: cephALEXin 500 MG CAPSULE PO (09:33)
--- NOTE | 2022-04-12 11:06 | MHC.CM.ED ---
Addendum entered by Beth Retana 04/12/22 13:17: [facility] is patient[facility] choice. Referral made via [facility]. Original Note: Received case management consult from Dr Bradley. Patient came to the ER due to back pain. Work up still pending. Physical therapy eval completed. Short term rehab is recommended. Met with patient in regards to discharge planning. Patient lives alone, ambulates independently and had no services prior to coming to the ER. PCP verified. Copy of HCP obtained from PCP's office. Patient received 5 Pfizer vaccines. Medicare is patient's primary insurance. [employer] is patient's supplemental. List of facilities provided to patient from [facility]. Patient will provide facility choices to CM. Continue to monitor for d/c needs.
--- NOTE | 2022-04-12 11:17 | PC.NURSE ---
this nurse took report from abundio and took over care for patient at 1115 am
[2022-04-12 11:30] VITALS: BP 140/56; PULSE 70; RESP 15; TEMP 36.8; O2SAT 95
[2022-04-12 12:45] VITALS: BP 144/64; PULSE 68; RESP 20; TEMP 36.5; O2SAT 97
--- NOTE | 2022-04-12 12:49 | PC.NURSE ---
a&ox3, pt reports mild pain, vital signs taken, call malone within reach, will continue to monitor
--- NOTE | 2022-04-12 14:03 | MHC.CM.ED ---
[facility] is able to offer a bed. Patient accepts bed. Patient can leave at 2pm. Miranda MARTIN booked. Med [facility] with chart. Patient, Ching VARGAS and Dr Bradley aware. Continue to monitor for d/c needs.
== END 2022-04-12 14:57 | disposition skilled nursing facility (03) ==
PROVIDERS: Emergency Provider Emergency Medicine; PCP Family Medicine
DX: S39.012A Strain of muscle, fascia and tendon of lower back, initial encounter (principal); X58.XXXA Exposure to other specified factors, initial encounter; M54.16 Radiculopathy, lumbar region; N39.0 Urinary tract infection, site not specified; M54.41 Lumbago with sciatica, right side; Z20.822 Contact with and (suspected) exposure to COVID-19; Z20.828 Contact with and (suspected) exposure to other viral communicable diseases; R73.03 Prediabetes; I10 Essential (primary) hypertension; Z79.899 Other long term (current) drug therapy; Z79.84 Long term (current) use of oral hypoglycemic drugs; Y93.9 Activity, unspecified; Y92.9 Unspecified place or not applicable; Y99.9 Unspecified external cause status
CPT/HCPCS: 0241U; 36415; 72100; 80048; 81001; 85025; 87086; 96372; 97162; 99284; 99285; J1885

== ENCOUNTER 2023-05-04 10:06 | Emergency (ER) | payer MEDICARE, OTHER, SELFPAY ==
--- NOTE | ~2023-05-04 | XR_ITS ---
EXAMINATION: XR SACRUM AND COCCYX CLINICAL INFORMATION: Right-sided pelvic cyst tenderness COMPARISON: Lumbar spine radiograph 04/12/2022 TECHNIQUE: 2 views of the sacrum and 2 views of the coccyx were obtained. FINDINGS: The right and left SI joints appear symmetric. No erosive change. Visualized portions of the sacrum intact although fair amount is obscured due to overlying stool. There are surgical clips in the right lower pelvis. Radiodense material is seen overlying the colon and there is a large calcification not completely evaluated, possibly related to mesenteric lymph node, in the mid abdomen, at approximately 21 x 12 mm. XR/XR sacrum coccyx min 2V IMPRESSION: Sacrum/coccyx appears intact.
[2023-05-04 10:14] VITALS: BP 157/72; PULSE 93; RESP 19; TEMP 36.6; O2SAT 95; BMI 37.8
[2023-05-04 10:57] LABS: MANUAL DIFF FLAG NO
[2023-05-04 10:59] LABS: Basophils Absolute Auto 0.1 X10*3/uL (0.0-0.2); Basophils Percent Auto 0.9 % (0-2); Eosinophils Absolute Auto 0.1 X10*3/uL (0.0-0.4); Eosinophils Percent Auto 1.6 % (0-4); Hematocrit 32.8 % (37.0-47.0); Hemoglobin 11.3 g/dl (12.0-16.0); Imm Gran Abs Auto 0.03 X10*3/uL (0.00-0.03); Imm Gran Pct Auto 0.3 % (0.0-0.4); Lymphocytes Absolute Auto 2.9 X10*3/uL (1.2-4.9); Lymphocytes Percent Auto 31.9 % (20-40); Mean Corpuscular HGB Conc 34.5 g/dl (31.0-35.0); Mean Corpuscular Hemoglobin 33.1 pg (27.0-33.0); Mean Corpuscular Volume 96.2 fL (80.0-98.0); Mean Platelet Volume 10.8 fL (9.4-12.3); Monocytes Absolute Auto 0.7 X10*3/uL (0.1-1.2); Monocytes Percent Auto 8.2 % (2-11); Neutrophils Absolute Auto 5.1 x10*3/uL (2.0-8.3); Neutrophils Percent Auto 57.1 % (45-73); Platelet Count 370 X10*3/uL (160-400); Red Blood Count 3.41 X10*6/uL (4.20-5.50); Red Cell Distribution Width 16.7 % (11.0-16.0)
[2023-05-04 11:08] LABS: Prothrombin Time 12.6 SEC (11.1-13.3)
[2023-05-04 11:14] LABS: Alanine Aminotransferase 9 U/L (0-31); Albumin Level 4.2 g/dL (3.5-5.0); Alkaline Phosphatase 82 U/L (39-117); Anion Gap 12 (12-20); Aspartate Amino Transferase 13 U/L (5-31); Bilirubin Direct 0.4 mg/dL (0.0-0.5); Bilirubin Total 1.2 mg/dL (0.0-1.0); Blood Urea Nitrogen 14 mg/dL (9-16); Calcium 9.5 mg/dL (8.4-10.2); Carbon Dioxide 28 mmol/L (22-29); Chloride 105 mmol/L (96-108); Creatinine Clr Calc Pharmacy 71.4; Estimated Glomerular Filt Rate > 60; Glucose Random 115 mg/dL (60-115); Lipase 33 U/L (8-78); Potassium 3.3 mmol/L (3.3-5.1); Sodium 142 mmol/L (135-145); Total Protein 7.1 g/dL (6.5-8.0)
--- NOTE | 2023-05-04 13:18 | ED.GENADULT ---
HPI - General Adult General Chief complaint: General Medical Stated complaint: Low Back Pain No Injury Time Seen by Provider: 05/04/23 13:12 Source: patient Mode of arrival: ambulatory Limitations: no limitations History of Present Illness HPI narrative: Patient is a 72-year-old female with history of anemia, hypertension, prediabetes presenting to the emergency department with complaint of right lower back pain for the past 3 months. She also states that she received a call from her PCP earlier in the week stating that her H&H were low on labs drawn outpatient, does not know levels. She denies any dizziness or lightheadedness. Denies chest pain, palpitations, dyspnea. Reports history of sciatica around a year and a half ago. States low back pain feels similar. She denies any falls or other trauma. Denies any radiation of pain to lower extremities. Denies any saddle anesthesia or bowel or bladder incontinence. Denies fevers. Does report some urinary frequency. Denies dysuria or hematuria. Denies any hematochezia or melena. Denies any recent vomiting. MD complaint: low back pain, abnormal labs Onset (ago): month(s) Location: back and right Radiation: non-radiation Severity: severe Quality: aching Pain Consistency: constant Related Data Home Medications Medication Instructions Recorded Confirmed amitriptyline 25 mg tablet 25 - 50 mg PO BEDTIME PRN 12/02/20 12/02/20 amlodipine 10 mg tablet 10 mg PO DAILY 12/02/20 12/02/20 hydrochlorothiazide 12.5 mg tablet 12.5 mg PO DAILY 12/02/20 12/02/20 metformin 500 mg tablet,extended 500 mg PO DAILY 12/02/20 12/02/20 release 24 hr metoprolol succinate 100 mg 100 mg PO DAILY 12/02/20 12/02/20 tablet,extended release 24 hr antiarthritic combination no.2 900 mg PO 01/21/21 mg tablet (glucosamine-chondroitin) calcium carbonate 600 mg calcium 600 mg PO DAILY 01/21/21 (1,500 mg) tablet (Calcium) cholecalciferol (vitamin D3) 25 25 mcg PO DAILY 01/21/21 mcg (1,000 unit) capsule losartan 100 mg tablet 100 mg PO DAILY 01/21/21 Previous Rx's Medication Instructions Recorded oxybutynin chloride 10 mg 10 mg PO DAILY OAB 30 days #30 tabs 12/09/20 tablet,extended release 24 hr vibegron 75 mg tablet (Gemtesa) 75 mg PO DAILY OAB 30 days #30 tabs 01/21/21 compr.stocking,knee,long,x-lrg #12 ea 08/17/21 cephalexin 500 mg capsule 500 mg PO Q6H 7 days #28 caps 04/12/22 cyclobenzaprine 10 mg tablet 10 mg PO TID PRN muscle spasm #20 04/12/22 tabs naproxen 500 mg tablet (Naprosyn) 500 mg PO BID #20 tabs 04/12/22 cefuroxime axetil 500 mg tablet 500 mg PO BID #14 tabs 05/04/23 diclofenac sodium 1 % topical gel 4 g topical QID #100 grams 05/04/23 prednisone 20 mg tablet 40 mg (2 x 20 mg) PO DAILY #10 tabs 05/04/23 Allergies Allergy/AdvReac Type Severity Reaction Status Date / Time acetaminophen [From PERCOCET] AdvReac Unknown Headache Verified 05/04/23 10:14 oxycodone [Percocet] AdvReac Unknown headache Verified 05/04/23 10:14 Review of Systems Review of Systems: As per HPI. Yes all other systems are reviewed and are negative Constitutional: Constitutional: Reports as per HPI PMFSH Past Medical History Medical History Aftercare following right elbow joint replacement surgery delivery affecting Frequency of urination Renal cyst Renal stone Urgency-frequency syndrome Surgical History H/O total hysterectomy Social History Social History Alcohol intake: never Patient Tobacco Use Status: Never used Tobacco Smoked in Last 30 Days: No Use of substances other than those prescribed or required for medical reasons: No Substance Use Type: Caffiene Advance Directives: Yes Advance Directives on File: Yes Advance Directives Date on File: 04/12/22 Physical Exam ED Vital Signs: Vital Signs - 24 hr 05/04/23 10:14 05/04/23 13:23 05/04/23 15:30 Temperature 98 F 97.8 F 98.0 F Pulse Rate 93 82 92 Respiratory Rate 19 16 18 Blood Pressure 157/72 H 178/73 H 185/73 H Pulse Oximetry 95 98 97 Oxygen Delivery Method Room Air Room Air BMI result Body Mass Index 37.8 Vital signs have been reviewed and appear to be correct. Blood pressure normal. Heart rate normal. Respiratory rate normal. Temperature normal. Oxygen saturation normal. Const General: cooperative, healthy appearing and no acute distress Orientation/consciousness: oriented to person, oriented to place, oriented to time and patient oriented x3 Limitations: no limitations [facility] Head: Yes normocephalic and Yes atraumatic Ears: external ears normal General nose exam: Normal external nose present Face and sinus: Yes face symmetric Mouth: oropharynx normal and moist mucous membranes Throat: Yes uvula midline Eyes Pupils: Equal, round and reactive pupils present Neck Neck: Yes normal visual inspection and Yes supple Resp Effort & Inspection: normal respiratory effort and able to speak in complete sentences Auscultation: clear to auscultation bilaterally Cardio Rate: regular rate Rhythm: regular rhythm Heart sounds: S1 normal heart sound present and S2 normal heart sound present GI Palpation (GI): Soft to palpation and nontender Auscultation: normoactive bowel sounds General: Yes no CVA tenderness Back/Spine/Pelvis Back: no CVA tenderness Thoracic/Lumbar Spine: thoracic and lumbar spine normal to inspection, pain with thoraco-lumbar ROM, paraspinal muscle tenderness on the right in the lower lumbar, No thoracic spinal tenderness and No lumbar spinal tenderness Sacroiliac joints: on the right tender to palpation Skin General skin exam: elasticity normal and turgor normal Neuro General: oriented to person, oriented to place, oriented to time, patient oriented x3, tone normal, moves all extremities, Normal light touch and pain sensation, no focal motor deficits, CN's II-XI intact bilaterally and deep tendon reflexes 2+ bilaterally Cranial nerves: Yes Equal, round and reactive pupils present Cognition (Neuro): normal cognition Motor exam (neuro): 5/5 motor strength present throughout, Normal motor muscle tone present throughout and Motor abnormalities not present Sensory Exam: Normal double simultaneous stimulation for sensation Extrem General: Yes full ROM, Yes no pedal edema and Yes no calf tenderness Psych Mental Status: mental status grossly normal Affect: normal affect Thought process: Normal thought process present Medications Administered Discontinued Medications Generic Name Dose Route Start Last Admin Trade Name Freq PRN Reason Stop Dose Admin Ketorolac Tromethamine 30 mg 05/04/23 13:33 05/04/23 14:03 Ketorolac Tromethamine 30 Mg/Ml Vial IM 05/04/23 13:34 30 mg ONCE ONE Administration Lidocaine 1 patch 05/04/23 13:33 05/04/23 14:03 Lidocaine 4 % Patch Adh..Patch TRANSDERMA 05/04/23 13:34 1 patch ONCE ONE Administration Protocol Medical Decision Making Medical Decision Making [facility] Narrative: Patient is a 72-year-old female with history of anemia, hypertension, prediabetes presenting to the emergency department with complaint of right lower back pain for the past 3 months. On exam patient is awake, A+Ox3, VS WNL, afebrile, normal neurological exam without focal deficits, physical exam findings as above. Given reported symptoms and physical exam findings, initial differential includes anemia, lumbar strain lumbar radiculopathy. Unlikely fracture or disc herniation but will obtain x-ray. Labs notable for microcytic anemia not at level requiring transfusion (11.3/32.8), no evidence of NADIA, no significant electrolyte abnormalities. Urinalysis notable for 1+ leukocytes, 11-20 WBCs, 2+ bacteria, will treat for UTI. X-ray notable for no acute fracture or other abnormality. My interpretation is in agreement with the radiologist's interpretation. Patient reports good pain relief with ketorolac and lidocaine patch. Will discharge patient home on short course of prednisone to decrease inflammation, patient stating that she would prefer not to use additional lidocaine patches at home as she has difficulty applying these on her own, but she is agreeable to diclofenac gel. Instructed patient to follow-up with primary care provider. Return precautions discussed at bedside. Patient verbalized understanding of and agreement with plan. Differential Diagnosis Differential Diagnoses: The differential diagnosis associated with the presentation includes As per MDM. Lab Data [facility] Lab Attestation statement: I reviewed the patient's lab results. As per [facility]. 05/04/23 10:52 05/04/23 10:52 Labs: Lab Results 05/04/23 05/04/23 Range/Units 10:52 13:39 WBC 9.0 (4.8-10.8) X10*3/uL RBC 3.41 L (4.20-5.50) X10*6/uL Hgb 11.3 L (12.0-16.0) g/dl Hct 32.8 L (37.0-47.0) % MCV 96.2 (80.0-98.0) fL MCH 33.1 H (27.0-33.0) pg MCHC 34.5 (31.0-35.0) g/dl RDW 16.7 H (11.0-16.0) % Plt Count 370 (160-400) X10*3/uL MPV 10.8 (9.4-12.3) fL Immature Gran % (Auto) 0.3 (0.0-0.4) % Neut % (Auto) 57.1 (45-73) % Lymph % (Auto) 31.9 (20-40) % [place]an % (Auto) 8.2 (2-11) % Eos % (Auto) 1.6 (0-4) % Baso % (Auto) 0.9 (0-2) % Lymph # (Auto) 2.9 (1.2-4.9) X10*3/uL [place] # (Auto) 0.7 (0.1-1.2) X10*3/uL Eos # (Auto) 0.1 (0.0-0.4) X10*3/uL Baso # (Auto) 0.1 (0.0-0.2) X10*3/uL Abs Immat Gran (auto) 0.03 (0.00-0.03) X10*3/uL Absolute Neuts (auto) 5.1 (2.0-8.3) x10*3/uL Absolute Nucleated RBC 0.000 (0.0-0.012) X10*3/uL Nucleated RBC % (auto) 0.0 (0.0-0.2) /100WBC PT 12.6 (11.1-13.3) SEC INR 1.0 (0.9-1.1) Sodium 142 (135-145) mmol/L Potassium 3.3 (3.3-5.1) mmol/L Chloride 105 (96-108) mmol/L Carbon Dioxide 28 (22-29) mmol/L Anion Gap 12 (12-20) BUN 14 (9-16) mg/dL Creatinine 0.83 (0.5-1.4) mg/dL Estim Creat Clear Calc 71.4 Estimated GFR > 60 Random Glucose 115 (60-115) mg/dL Calcium 9.5 (8.4-10.2) mg/dL Total Bilirubin 1.2 H (0.0-1.0) mg/dL Direct Bilirubin 0.4 (0.0-0.5) mg/dL AST 13 (5-31) U/L ALT 9 (0-31) U/L Alkaline Phosphatase 82 (39-117) U/L Total Protein 7.1 (6.5-8.0) g/dL Albumin 4.2 (3.5-5.0) g/dL Lipase 33 (8-78) U/L Urine Color Yellow Urine Appearance Clear Urine pH 6.0 (5.0-9.0) Ur Specific [place] <= 1.005 (1.005-1.025) Urine Protein Negative (Neg-Trace) mg/dL Urine Glucose (UA) Negative (Negative) mg/dL Urine Ketones Negative (Negative) mg/dL Urine Blood Negative (Negative) Urine Nitrite Negative (Negative) Ur Leukocyte Esterase Small (1+) H (Negative) Urine RBC 0-2 (0-2) /HPF Urine WBC 11-20 H (0-5) /HPF Ur Squamous Epith Cells 0-2 (0-2) /HPF Urine Bacteria 2+ (None Seen) Hyaline Casts 0-2 (0-2) /LPF Independent Interpretation I performed an independent interpretation of an: Plain X-Ray Interpretation: No acute abnormality on x-ray Radiology Impression Discussion of test interpretation with radiology: I have reviewed the radiologist's reading. Radiologist Impression: XR/XR sacrum coccyx min 2V IMPRESSION: Sacrum/coccyx appears intact. External Record Review External record reviewed: Inpatient record, Office record and Outpatient record Prescription Management I considered prescription management with: Antibiotic and Other Discharge Plan Discharge Clinical Impression: Urinary tract infection, Lumbar radiculopathy Patient Disposition: Home, Self-Care Instructions: Urinary Tract Infection in Women (DC), Lumbar Radiculopathy (ED) Additional Instructions: You have been evaluated in the emergency department today for back pain. Your evaluation, including urinalysis, suggests that your symptoms are due in part to a urinary tract infection. Please take your prescribed antibiotics for the full course of medication as directed. You are being prescribed a course of prednisone which is a steroid to decrease inflammation. You are also being prescribed diclofenac gel which you can apply to the affected area 4 times daily. You can alternate 650 mg of Tylenol and 600 mg of ibuprofen every 3 hours. For example, at noon take Tylenol, then at 3:00 p.m. take ibuprofen, then at 6:00 p.m. take Tylenol, etc.. Please follow-up with your primary care provider within 2 days. Return to the emergency department if you experience fevers 100.4? F or greater, worsening or uncontrolled pain, vomiting, flank pain, new weakness, numbness, tingling to her legs, groin numbness or tingling, urinary incontinence or for any other concerning symptoms. Prescriptions: New prednisone 20 mg tablet 40 mg PO DAILY Qty: 10 0RF diclofenac sodium 1 % gel 4 g topical QID Qty: 100 0RF Rx Instructions: apply to lower back cefuroxime axetil 500 mg tablet 500 mg PO BID Qty: 14 0RF No Action oxybutynin chloride 10 mg tablet extended release 24hr 10 mg PO DAILY 30 Days Qty: 30 0RF (DME) compr.stocking,knee,long,x-lrg Misc See Rx Instructions .Route Qty: 12 0RF Rx Instructions: As directed cyclobenzaprine 10 mg tablet 10 mg PO TID PRN (Reason: muscle spasm) Qty: 20 0RF naproxen [Naprosyn] 500 mg tablet 500 mg PO BID Qty: 20 0RF cephalexin 500 mg capsule 500 mg PO Q6H 7 Days Qty: 28 0RF metoprolol succinate 100 mg tablet extended release 24 hr 100 mg PO DAILY amitriptyline 25 mg tablet 25 - 50 mg PO BEDTIME PRN amlodipine 10 mg tablet 10 mg PO DAILY metformin 500 mg tablet extended release 24 hr 500 mg PO DAILY hydrochlorothiazide 12.5 mg tablet 12.5 mg PO DAILY calcium carbonate [Calcium 600] 600 mg calcium (1,500 mg) tablet 600 mg PO DAILY cholecalciferol (vitamin D3) 25 mcg (1,000 unit) capsule 25 mcg PO DAILY glucosamine-chondroitin 900 mg tablet PO losartan 100 mg tablet 100 mg PO DAILY Gemtesa 75 mg tablet 75 mg PO DAILY 30 Days Qty: 30 3RF
[2023-05-04 13:23] VITALS: BP 178/73; PULSE 82; RESP 16; TEMP 36.6; O2SAT 98
[2023-05-04 13:50] LABS: Appearance Urine Clear; Color Urine Yellow; Glucose Urine UA Negative (Negative); Leukocyte Esterase Urine Small (1+) (Negative); Nitrite Urine Negative (Negative); Specific Gravity - Urine <= 1.005 (1.005-1.025); UMIC TRIGGER UACC YES; Urine Blood Negative (Negative); Urine Ketones Negative (Negative); Urine Protein Negative (Neg-Trace)
[2023-05-04 13:55] LABS: Bacteria Urine 2+ (None Seen); Hyaline Casts Urine 0-2 /LPF (0-2); RBC Urine 0-2 /HPF (0-2); Squamous Epithelial Cell Urine 0-2 /HPF (0-2); UACC Culture Trigger YES
[2023-05-04] MEDS: Ketorolac Tromethamine 30 MG/ML VIAL IM (14:03)
[2023-05-04] MEDS: Lidocaine 4 % Patch ADH..PATCH 1 PATCH TRANSDERMA (14:03)
[2023-05-04 15:30] VITALS: BP 185/73; PULSE 92; RESP 18; TEMP 36.7; O2SAT 97
== END 2023-05-04 16:45 | disposition home or self-care (01) ==
PROVIDERS: Emergency Provider Emergency Medicine Emergency Medical Services; PCP Internal Medicine
DX: M54.16 Radiculopathy, lumbar region (principal); N39.0 Urinary tract infection, site not specified; I10 Essential (primary) hypertension; R73.03 Prediabetes; D50.9 Iron deficiency anemia, unspecified; Z79.84 Long term (current) use of oral hypoglycemic drugs; Z79.899 Other long term (current) drug therapy
CPT/HCPCS: 36415; 72220; 80048; 80076; 81001; 83690; 85025; 85610; 87086; 87088; 87186; 96372; 99284; J1885

== ENCOUNTER 2024-04-16 08:23 | Emergency (ER) | payer MEDICARE, OTHER, SELFPAY ==
--- NOTE | ~2024-04-16 | CT_ITS ---
EXAMINATION: CT ABDOMEN PELVIS WITHOUT IV CONTRAST HISTORY: constipation COMPARISON: Comparison is made with the prior examination dated 07/27/2018. TECHNIQUE: CT scan of the abdomen and pelvis was performed without contrast using standard departmental protocol. Coronal and sagittal reformatted images were generated and reviewed. Oral contrast material was not administered at the request of the referring physician. This CT exam was performed with one or more of the following dose reduction techniques: automated exposure control, adjustment of the mA and/or kV according to patient size, use of iterative reconstruction technique. DLP: 660 mGy-cm FINDINGS: LOWER CHEST: The visualized lung bases are clear. There is no pleural effusion. CARDIOVASCULATURE: The heart is normal in size. There is no pericardial effusion. LIVER: The liver is normal in size and contour. The liver has an unremarkable unenhanced appearance. GALLBLADDER / BILE DUCTS: The gallbladder is distended without evidence of calcified stones. There is no intra or extrahepatic biliary ductal dilatation. SPLEEN: The spleen is normal in size and has an unremarkable unenhanced appearance. PANCREAS: The pancreas has an unremarkable unenhanced appearance. ADRENAL GLANDS: There is mild nodularity of the adrenals without change. KIDNEYS/RETROPERITONEUM: There is a 1.6 cm hypodensity at the lower pole of the right kidney. This cannot be accurately characterize without intravenous contrast. There is a 6.2 cm cyst at the upper pole of the left kidney and a 11.4 cm lesion in the interpolar region which demonstrates mild wall thickening. Accurate evaluation is limited by lack of intravenous contrast. There is a 2.2 cm nonobstructing calculus at the lower pole. No hydronephrosis. LYMPH NODES: No retroperitoneal lymphadenopathy is identified in the abdomen or pelvis. VASCULATURE: The abdominal aorta demonstrates atherosclerotic calcification, but is normal in caliber. MESENTERY/PERITONEUM: No free fluid. No masses. There is no free intraperitoneal gas. STOMACH: There is a small hiatal hernia. The remainder of the stomach is collapsed. SMALL BOWEL: The small bowel is normal in caliber. COLON: There is a large amount of stool throughout the colon. Again seen is a ventral hernia containing the majority of the transverse colon. The opening of the hernia measures approximately 3.7 cm in diameter. There is no evidence of bowel obstruction. APPENDIX: The appendix is not seen, however no inflammatory changes are seen adjacent to the cecum. URINARY BLADDER/PELVIC ORGANS: The urinary bladder is unremarkable. The patient is status post hysterectomy. BONES / SOFT TISSUES: There is degenerative disc disease of the spine. CT/CT abdomen pelvis wo IV con IMPRESSION: 1. Large amount of stool throughout the colon. 2. Large ventral hernia containing the majority of the transverse colon, without evidence of bowel obstruction. 3. Distended gallbladder without evidence of calcified stones. 4. 11.4 cm cystic lesion in the interpolar region of the left kidney which demonstrates mild wall thickening. Ultrasound evaluation is recommended. 5. 2.2 cm nonobstructing calculus at the lower pole of the left kidney. Electronically signed by: Igor Novak MD 04/16/2024 10:26 AM MARY
[2024-04-16 08:36] VITALS: BP 137/57; BP 145/75; PULSE 80; PULSE 97; RESP 18; TEMP 36.7; O2SAT 100; O2SAT 97; BMI 32.0
--- NOTE | 2024-04-16 08:46 | ED_ITS ---
HPI - General Adult General Chief complaint: Weakness Stated complaint: WEAK,CONSTIPATION,FROM SNF PER EMS Time Seen by Provider: 04/16/24 08:28 Source: patient Mode of arrival: EMS Limitations: no limitations History of Present Illness HPI narrative: This is a 73 years old female patient presented to the emergency department with complaint of generalized weakness malaise and constipation. She has history of chronic anemia, chronic back pain, kidney stone she has a ventral hernia. she denies any fever chills vomiting and diarrhea Onset (ago): day(s) (1) Radiation: non-radiation Severity: moderate Pain Consistency: constant Relieving factors: none Exacerbating factors: none Associated symptoms: denies other symptoms Related Data Home Medications ?Medication ?Instructions ?Recorded ?Confirmed amitriptyline 25 mg tablet 25 - 50 mg PO BEDTIME PRN 12/02/20 12/02/20 amlodipine 10 mg tablet 10 mg PO DAILY 12/02/20 12/02/20 hydrochlorothiazide 12.5 mg tablet 12.5 mg PO DAILY 12/02/20 12/02/20 metformin 500 mg tablet,extended 500 mg PO DAILY 12/02/20 12/02/20 release 24 hr metoprolol succinate 100 mg 100 mg PO DAILY 12/02/20 12/02/20 tablet,extended release 24 hr antiarthritic combination no.2 900 mg PO 01/21/21 mg tablet (glucosamine-chondroitin) calcium carbonate (Calcium 600) 600 mg PO DAILY 01/21/21 cholecalciferol (vitamin D3) 25 25 mcg PO DAILY 01/21/21 mcg (1,000 unit) capsule losartan 100 mg tablet 100 mg PO DAILY 01/21/21 Previous Rx's ?Medication ?Instructions ?Recorded oxybutynin chloride 10 mg 10 mg PO DAILY OAB 30 days #30 tabs 12/09/20 tablet,extended release 24 hr vibegron 75 mg tablet (Gemtesa) 75 mg PO DAILY OAB 30 days #30 tabs 01/21/21 compr.stocking,knee,long,x-lrg #12 ea 08/17/21 cephalexin 500 mg capsule 500 mg PO Q6H 7 days #28 caps 04/12/22 cyclobenzaprine 10 mg tablet 10 mg PO TID PRN muscle spasm #20 04/12/22 tabs naproxen 500 mg tablet (Naprosyn) 500 mg PO BID #20 tabs 04/12/22 cefuroxime axetil 500 mg tablet 500 mg PO BID #14 tabs 05/04/23 diclofenac sodium 1 % topical gel 4 g topical QID #100 grams 05/04/23 prednisone 20 mg tablet 40 mg (2 x 20 mg) PO DAILY #10 tabs 05/04/23 Allergies Allergy/AdvReac Type Severity Reaction Status Date / Time acetaminophen [From PERCOCET] AdvReac Unknown Headache Verified 04/16/24 08:37 oxycodone [Percocet] AdvReac Unknown headache Verified 04/16/24 08:37 Review of Systems 2 Constitutional: Constitutional: Reports fatigue Respiratory: Respiratory: Reports no additional respiratory complaints Genitourinary: Genitourinary: Reports no additional female genitourinary complaints Endocrine: Endocrine: Reports fatigue PMFSH Past Medical History Attestation statement: The following information was validated with the patient. Source: unable to obtain Medical History Aftercare following right elbow joint replacement surgery delivery affecting Frequency of urination Renal cyst Renal stone Urgency-frequency syndrome Surgical History H/O total hysterectomy Social History Social History Alcohol intake: never Patient Tobacco Use Status: Never used Tobacco Smoked in Last 30 Days: No Use of substances other than those prescribed or required for medical reasons: No Substance Use Type: Caffiene Advance Directives: Yes Advance Directives on File: Yes Advance Directives Date on File: 04/12/22 Do you have a plan to hurt others: No Plan Physical Exam ED Vital Signs: Vital Signs - 24 hr 04/16/24 08:36 04/16/24 11:26 04/16/24 12:04 Temperature 98.1 F 98.1 F Pulse Rate 80 85 81 Respiratory Rate 18 18 18 Blood Pressure 137/57 L 143/57 H 143/103 H Pulse Oximetry 100 98 94 Oxygen Delivery Method Room Air Room Air Room Air 04/16/24 15:18 Temperature 98.0 F Pulse Rate 86 Respiratory Rate 16 Blood Pressure 144/53 H Pulse Oximetry 100 Oxygen Delivery Method Room Air BMI result Body Mass Index 32.0 No acute distress Const General: cooperative and comfortable Orientation/consciousness: patient oriented x3 HENMT Head: Yes normal to inspection Ears: hearing grossly normal bilaterally Face and sinus: Yes normal facial exam Neck Neck: Yes normal visual inspection and Yes full ROM Chest Chest palpation & inspection: normal inspection of the chest Resp Effort & Inspection: normal respiratory effort Auscultation: clear to auscultation bilaterally Cardio Jugular venous distension: no JVD Rate: regular rate GI Inspection: Yes normal to inspection Palpation (GI): Soft to palpation Auscultation: normal bowel sounds Skin General skin exam: no rashes or lesions noted Lesions: no lesions Rashes: no rashes Wounds: no wounds Neuro General: patient oriented x3 Cranial nerves: Yes CN's II-XII intact bilaterally Course Reevaluation(s) Reevaluation #1: Patient was disimpacted by me, she was on by transplant case manager bed in rehab which she declined, she wants to go home. Time: 15:09 Reevaluation #2: Potassium noted she was given replacement of K we will recheck the potassium HB noted she has hx of chronic anemia Mar 12 HB was 7.4, Apr 02 7.7 Time: 15:29 Reevaluation #3: repeat K 3.7 Time: 16:14 Medications Administered Discontinued Medications Generic Name Dose Route Start Last Admin Trade Name Freq PRN Reason Stop Dose Admin Sodium Chloride 1,000 mls @ 999 mls/hr 04/16/24 08:45 04/16/24 14:37 Ns IVCONT 04/16/24 09:45 Infused .Q1H1M BRIAN Infusion Ibuprofen 800 mg 04/16/24 11:09 04/16/24 11:22 Ibuprofen 800 Mg Tablet PO 04/16/24 11:10 800 mg ONCE ONE Administration Potassium Chloride 40 meq 04/16/24 10:41 04/16/24 11:22 Potassium Chloride Er 20 Meq Tab.Er.Prt PO 04/16/24 10:42 40 meq ONCE ONE Administration Potassium Chloride 40 meq 04/16/24 13:58 04/16/24 14:46 Potassium Chloride Er 20 Meq Tab.Er.Prt PO 04/16/24 13:59 40 meq ONCE ONE Administration Sodium Biphosphate/Sodium Phosphate 133 ml 04/16/24 11:29 04/16/24 11:38 Sodium Phosphate,[place]-Dibasic 133 Ml Enema CO 04/16/24 11:30 133 ml ONCE ONE Administration Procedures Rectal Disimpaction Time out performed rectal disimpaction: Yes Indication: fecal impaction Procedural Sedation: No Sedation/Analgesia: none Technique: manual disimpaction with gloved finger Result: significant stool output Patient Tolerated Procedure: well Complications: none Medical Decision Making Medical Decision Making [facility] Narrative: Patient presented with constipation and weakness will check labs and CT to rule out obstruction Differential Diagnosis Differential Diagnoses: The differential diagnosis associated with the presentation includes Small-bowel obstruction/fecal impaction Admission/Observation Consideration of admission/observation: Escalation of care including admission/observation considered Lab Data [facility] Lab Attestation statement: I reviewed the patient's lab results. 04/16/24 09:24 04/16/24 15:48 Labs: Lab Results 04/16/24 04/16/24 04/16/24 Range/Units 09:24 14:41 15:48 WBC 5.5 (4.8-10.8) X10*3/uL RBC 2.53 L (4.20-5.50) X10*6/uL Hgb 7.7 L (12.0-16.0) g/dl Hct 23.4 L (37.0-47.0) % MCV 92.5 (80.0-98.0) fL MCH 30.4 (27.0-33.0) pg MCHC 32.9 (31.0-35.0) g/dl RDW 19.2 H (11.0-16.0) % Plt Count 430 H (160-400) X10*3/uL MPV 9.3 L (9.4-12.3) fL Immature Gran % (Auto) 0.5 H (0.0-0.4) % Neut % (Auto) 57.0 (45-73) % Lymph % (Auto) 29.4 (20-40) % [place] % (Auto) 12.1 H (2-11) % Eos % (Auto) 0.5 (0-4) % Baso % (Auto) 0.5 (0-2) % Lymph # (Auto) 1.6 (1.2-4.9) X10*3/uL [place] # (Auto) 0.7 (0.1-1.2) X10*3/uL Eos # (Auto) 0.0 (0.0-0.4) X10*3/uL Baso # (Auto) 0.0 (0.0-0.2) X10*3/uL Abs Immat Gran (auto) 0.03 (0.00-0.03) X10*3/uL Absolute Neuts (auto) 3.2 (2.0-8.3) x10*3/uL Absolute Nucleated RBC 0.000 (0.0-0.012) X10*3/uL Nucleated RBC % (auto) 0.0 (0.0-0.2) /100WBC Sodium 141 144 (135-145) mmol/L Potassium 2.8 L* D 3.7 D (3.3-5.1) mmol/L Chloride 104 109 H (96-108) mmol/L Carbon Dioxide 28 27 (22-29) mmol/L Anion Gap 12 12 (12-20) BUN 18 H 15 (9-16) mg/dL Creatinine 0.91 0.80 (0.5-1.4) mg/dL Estim Creat Clear Calc 58.7 66.8 Estimated GFR > 60 > 60 Random Glucose 141 H 104 (60-115) mg/dL Calcium 9.0 8.7 (8.4-10.2) mg/dL Total Bilirubin 1.0 (0.0-1.0) mg/dL AST 15 (5-31) U/L ALT < 6 (0-31) U/L Alkaline Phosphatase 103 (39-117) U/L Total Protein 7.1 (6.5-8.0) g/dL Albumin 3.3 L (3.5-5.0) g/dL COVID-19 (GREGORIO) Negative (Negative) COVID-19 Clin Com See Note Independent Interpretation I performed an independent interpretation of an: CT Scan Interpretation: Large amount of stools Radiology Impression Discussion of test interpretation with radiology: I have reviewed the radiologist's reading. Radiologist Impression: 1. Large amount of stool throughout the colon. 2. Large ventral hernia containing the majority of the transverse colon, without evidence of bowel obstruction. 3. Distended gallbladder without evidence of calcified stones. 4. 11.4 cm cystic lesion in the interpolar region of the left kidney which demonstrates mild wall thickening. Ultrasound evaluation is recommended. 5. 2.2 cm nonobstructing calculus at the lower pole of the left kidney. Discharge Plan Discharge Clinical Impression: Fecal impaction, Acute hypokalemia Patient Disposition: Home, Self-Care Instructions: Hypokalemia (ED), Fecal Impaction (ED) Additional Instructions: Follow-up with your primary care physician, you have been evaluated for constipation your bed disimpacted in the emergency department, your potassium was low he was corrected, you also have chronic anemia please follow-up with your primary care physician about the anemia. You refused to go to rehab. Also CT scan showed no bowel obstruction no colitis. You do have a cyst in the left kidney which need follow-up so please call your primary care physician you will need an outpatient ultrasound Prescriptions: No Action oxybutynin chloride 10 mg tablet extended release 24hr 10 mg PO DAILY 30 Days Qty: 30 0RF (DME) compr.stocking,knee,long,x-lrg Misc See Rx Instructions .Route Qty: 12 0RF Rx Instructions: As directed cyclobenzaprine 10 mg tablet 10 mg PO TID PRN (Reason: muscle spasm) Qty: 20 0RF naproxen [Naprosyn] 500 mg tablet 500 mg PO BID Qty: 20 0RF cephalexin 500 mg capsule 500 mg PO Q6H 7 Days Qty: 28 0RF prednisone 20 mg tablet 40 mg PO DAILY Qty: 10 0RF diclofenac sodium 1 % gel 4 g topical QID Qty: 100 0RF Rx Instructions: apply to lower back cefuroxime axetil 500 mg tablet 500 mg PO BID Qty: 14 0RF metoprolol succinate 100 mg tablet extended release 24 hr 100 mg PO DAILY amitriptyline 25 mg tablet 25 - 50 mg PO BEDTIME PRN amlodipine 10 mg tablet 10 mg PO DAILY metformin 500 mg tablet extended release 24 hr 500 mg PO DAILY hydrochlorothiazide 12.5 mg tablet 12.5 mg PO DAILY calcium carbonate [Calcium 600] 600 mg calcium (1,500 mg) tablet 600 mg PO DAILY cholecalciferol (vitamin D3) 25 mcg (1,000 unit) capsule 25 mcg PO DAILY glucosamine-chondroitin 900 mg tablet PO losartan 100 mg tablet 100 mg PO DAILY Gemtesa 75 mg tablet 75 mg PO DAILY 30 Days Qty: 30 3RF Print Language: Vietnamese
[2024-04-16 09:27] LABS: MANUAL DIFF FLAG NO
[2024-04-16] MEDS: 0.9 % Sodium Chloride 1,000 ML 999 ML IVCONT (09:28)
[2024-04-16 09:32] LABS: Basophils Percent Auto 0.5 % (0-2); Eosinophils Percent Auto 0.5 % (0-4); Hematocrit 23.4 % (37.0-47.0); Hemoglobin 7.7 g/dl (12.0-16.0); Imm Gran Abs Auto 0.03 X10*3/uL (0.00-0.03); Imm Gran Pct Auto 0.5 % (0.0-0.4); Lymphocytes Absolute Auto 1.6 X10*3/uL (1.2-4.9); Lymphocytes Percent Auto 29.4 % (20-40); Mean Corpuscular HGB Conc 32.9 g/dl (31.0-35.0); Mean Corpuscular Hemoglobin 30.4 pg (27.0-33.0); Mean Corpuscular Volume 92.5 fL (80.0-98.0); Mean Platelet Volume 9.3 fL (9.4-12.3); Monocytes Absolute Auto 0.7 X10*3/uL (0.1-1.2); Monocytes Percent Auto 12.1 % (2-11); Neutrophils Absolute Auto 3.2 x10*3/uL (2.0-8.3); Platelet Count 430 X10*3/uL (160-400); Red Blood Count 2.53 X10*6/uL (4.20-5.50); Red Cell Distribution Width 19.2 % (11.0-16.0); White Blood Count 5.5 X10*3/uL (4.8-10.8)
[2024-04-16 10:20] LABS: Alanine Aminotransferase < 6 U/L (0-31); Albumin Level 3.3 g/dL (3.5-5.0); Alkaline Phosphatase 103 U/L (39-117); Anion Gap 12 (12-20); Aspartate Amino Transferase 15 U/L (5-31); Blood Urea Nitrogen 18 mg/dL (9-16); Carbon Dioxide 28 mmol/L (22-29); Chloride 104 mmol/L (96-108); Creatinine Clr Calc Pharmacy 58.7; Estimated Glomerular Filt Rate > 60; Glucose Random 141 mg/dL (60-115); Potassium 2.8 mmol/L (3.3-5.1); Sodium 141 mmol/L (135-145); Total Protein 7.1 g/dL (6.5-8.0)
[2024-04-16] MEDS: Ibuprofen 800 MG TABLET PO (11:22)
[2024-04-16] MEDS: Potassium Chloride ER 20 MEQ TAB.ER.PRT 40 MEQ PO ×2 (11:22→14:46)
[2024-04-16 11:26] VITALS: BP 143/57; PULSE 85; RESP 18; O2SAT 98
[2024-04-16] MEDS: Sodium Phosphate,Mono-Dibasic 133 ML ENEMA PR (11:38)
--- NOTE | 2024-04-16 11:39 | PC.NURSE ---
DR STAHL AT THE BEDSIDE FOR DISIMPACTION. SOME STOOL BURDEN WAS REMOVED, SHE WAS GIVEN AN ENEMA POST AND SHE WAS PLACED ON A BED ROBLES. SHE ALSO REPORTS HAVING INCREASED DIFFICULTIES AT HOME LIVING ALONE. SHE DOES HAVE VNA INVOLVED. SHE ALSO MENTIONED INCREASED DEPRESSION WITHOUT SI SHE WAS RECENTLY AT [facility] AND DISCHARGED HOME
[2024-04-16 12:04] VITALS: BP 143/103; PULSE 81; RESP 18; TEMP 36.7; O2SAT 94
--- OUTSIDE RECORDS SUMMARY | 2024-04-16 13:41 | XMS_ITS | Encounter Summary ---
Author Organization [facility] Address [address] [place] [address] Care Team Providers Care Egg Processor Name Role Phone Washington Arias MD Primary Care Provider [phone]- [phone] Encounter Details Date Type Department Care Team (Late st Contact Info) Description 02/07/2024 Lab Requisition [facility] - Main Lab [address] [place] [address] Malik Dolan MD [id number] [facility] [address] [place] [address] Urinary tract infection, site not specified Social History Tobacco Use Types Packs/Day Years Used Date Smoking Tobacco: Never Passive Smoke Exposure: Never Smokeless Tobacco: Never Alcohol Use Standard Drinks/Week Comments Not Currently 0 (1 standard drink = 0.6 oz pur e alcohol) FLAQUITO Sex and Gender Information Value Date Recorded Sex Assigned at Female 01/25/2024 9:35 AM EST Gender Identity Female 01/25/2024 9:35 AM EST Sexual Orientation Straight 01/25/2024 9: 35 AM EST Job Start Date Occupation Industry Not on file Not on file Not on file documented as of this encounter Plan of Treatment Not on file documented as of this encounter Procedures Procedure Name Priority Date/Time Associated Diagnosis Comments BACTERIAL IDENTIFICATION AND SUSCEPTIBILITY, AEROBIC Routine 02/06/2024 12:00 AM EST Urinary tract infection, site not specified documented in this encounter Results * Bacterial identification and susceptibility, aerobic (02/06/2024 12:00 AM EST) Culture, Bacterial ID and Sensitivity Multiple bacterial morphotypes present consistent with either contamination or urogenital mercedes. Suggest repeat specimen, if clinically indicated. 02/08/2024 7:44 AM EST [facility] Other Topography unknown / Unknown 02/06/2024 02/07/2024 10:36 AM EST Malik Dolan MD LAB MICROBIO LOGY - GENERAL ORDERABLES [facility] [address] [place] [address], documented in this encounter Visit Diagnoses Diagnosis Urinary tract infection, site not specified documented in this encounter Additional Health Concerns Infection Onset Date Last Indicated Resolved Time Gastrointestinal Rule-Out 02/28/2024 02/28/2024 7:04 PM EST documented as of this encounter Care Teams Egg Processor Relationship Specialty Start Date End Date Washington Arias MD [address] [place] [id number] PCP - General Internal Medicine 01/27/24 documented as of this encounter
--- OUTSIDE RECORDS SUMMARY | 2024-04-16 13:41 | XMS_ITS | Clinical Summary ---
Author Organization [facility] Address [address] [place] [address] Phone Care Team Providers Care Customer Service Voice Name Role Phone Washington Arias MD Primary Care Provider [phone] Allergies Active Allergy Reactions Criticality Noted Date Comments Oxycodone Headache Medium 01/30/2024 Medications Medication Sig Dispensed Refills Start Date End Date Status calcium carbonate/vitamin D3 (CALCIUM 600 WITH VITAMIN D3 ORAL) Take by mouth. Acti ve amLODIPine (NORVASC) 10 mg tablet Take 1 tablet (10 mg total) by mouth 1 (one) time each day. 03/05/2024 Active metoprolol succinate (TOPROL-XL) 100 mg 24 hr tablet Take 1 tablet (100 mg total) by mouth 1 (one) time each day. Do not crush or chew. 30 each 11 03/05/2024 03/05/2025 Active HYDROCHLOROTHIAZIDE ORAL Take 12.5 mg by mouth. Active estradioL (ESTRACE) 0.01 % (0.1 mg/gram) vaginal cream Please use 0.5g (a pea-sized amount) on your finger and place inside the vagina for 2 weeks at night, and then decrease to twice a week at night (Mondays and ) 11/04/2023 11/28/2024 Active melatonin 3 mg tablet Take 2 tablets (6 mg total) by mouth at bedtime as needed for sleep. 03/05/2024 04/04/2024 Active Problems Problem Noted Date Diagnosed Date Acute blood loss anemia 03/26/2024 Resolved Problems Problem Noted Date Diagnosed Date Resolved Date Acute cystitis without hematuria 02/28/2024 03/05/2024 Encounters Date Type Department Care Team Description 03/27/2024 9:30 AM EST - 03/29/2024 6:32 AM EST Hospital Encounter [facility] [address] [phone] Jermaine Gold MD Acute blood loss anemia (Primary Dx) Discharge Disposition: Home or Self Care 02/28/2024 6:02 PM EST - 03/05/2024 2:52 PM EST Hospital Encounter [facility] [address] [place] [address] Ash Rojo MD Bashir, Talha, MD Rasul, Yar M, MD Acute cystitis with hematuria (Primary Dx); Abdominal wall hernia; Renal colic on left side; Hypokalemia Discharge Disposition: Half-Way Facility 02/07/2024 Lab Requisition [facility] [address] [place] [phone] Malik Dolan MD Urinary tract infection, site not specified 01/30/2024 1:03 PM EST Anesthesia Event [facility] [address] [place] [phone] Igor Damon MD 01/30/2024 11:45 AM EST - 01/30/2024 1:[address] [facility] [address] [place] [phone] Malik Dolan MD CYSTOSCOPY, LEFT URETEROSCOPY, LASER LITHOTRIPSY, STENT [[id number] (CPT??)] 01/30/2024 9:54 AM EST - 01/30/2024 3:59 PM EST Hospital Encounter [facility] [address] [place] [phone] Malik Dolan MD Calculus of kidney Discharge Disposition: Home or Self Care 01/30/2024 7:25 AM EST - 01/30/2024 11:59 PM EST Hospital Encounter [facility] [address] [place] [phone] Pain Discharge Disposition: Home or Self Care from Last 3 Months Immunizations Name Administration Dates Next Due Moderna SARS-CoV-2 COVID-19, mRNA, LNP-S, preservative free 12/04/2021 Surgical History Surgery Date Site/Laterality Comments TOTAL VAGINAL HYSTERECTOMY TUMOR REMOVAL ABDOMEN THYROID CYST EXCISION SECTION Medical History Medical History Date Comments Hypertension Arthritis Joint pain Bilateral wrist pain Hernia of abdominal cavity Pre-diabetes Kidney calculi left Social History Tobacco Use Types Packs/Day Years Used Date Smoking Tobacco: Never Passive Smoke Exposure: Never Smokeless Tobacco: Never Alcohol Use Standard Drinks/Week Comments Not Currently 0 (1 standard drink = 0.6 oz pur e alcohol) FLAQUITO Housing Instability Answer Date Recorde d Are you worried that in the next 2 months you may not have stable housing? No 02/29/2024 Food Access & Nutrition Answer Date Rec orded Do you have access to a vari ety of food including fruits and vegetables? No 02/29/2024 Access to Healthcare Answer Date Record ed Within the last 3 months, ho veronika many times did you visit the emergency department for your medical care? 3 02/29/2024 Health Literacy Answer Date Recorded How often do you need to hav e someone help you when you read instructions, pamphlets, or other written material from your doctor or pharmacy? Rarely 02/29/2024 Caregiver: How often do you need to have someone help you when you read instructions, pamphlets, or other written material from your doctor or pharmacy? Not on file 02/29/2024 Financial Risk Answer Date Recorded How hard is it for you to pa y for the very basics like food, housing, medical care, and air conditioning / heating? Not very hard 02/29/2024 Transportation Answer Date Recorded Has the lack of transportati on kept you from meetings, work, or from getting things needed for daily living? Yes Has the lack of transportati on kept you from medical appointments or from getting medications? Yes 02/29/2024 Social Isolation Answer Date Recorded How often do you feel lonely or isolated from th ose around you? Always 02/29/2024 Food Risk Answer Date Recorded Within the past 12 months we worried whether our food would run out before we got money to buy more. Often true 024 Within the past 12 months th e food we bought just didn't last and we didn't have money to get more. Sometimes true 02/29/2024 Dependent Care Answer Date Recorded Do you need help finding or paying for care for your loved ones. For example, child caregiver private home or elderly care for an older adult? No 02/29/2024 Education Answer Date Recorded Do you think completing more education or training, like finishing a GED, going to college, or learning a trade, would be helpful for you? No 02/29/2024 Employment and Income Answer Date Recor ded During the last four weeks, have you been actively looking for work? No 02/29/2024 Living Situation Answer Date Recorded What is your living situation? 1 05/01/2023 Interpersonal Safety Answer Date Record ed Physical Abuse 02/29/2024 Verbal Abuse 02/29/2024 Sex and Gender Information Value Date Recorded Sex Assigned at Female 01/25/2024 9:35 AM EST Gender Identity Female 01/25/2024 9:35 AM EST Sexual Orientation Straight 01/25/2024 9: 35 AM EST Job Start Date Occupation Industry Not on file Not on file Not on file Obstetrics History Last Filed Vital Signs Vital Sign Reading Time Taken Comments Blood Pressure 121/58 03/27/2024 5:30 PM EST Pulse 92 03/27/2024 5:30 PM EST Temperature 36.9 ??C (98.5 ??F) 03/27/2024 5:30 PM ES T Respiratory Rate 18 03/27/2024 5:30 PM EST Oxygen Saturation 99% 03/27/2024 11: 54 AM EST Inhaled Oxygen Concentration - - Weight 94.7 kg (208 lb 12.8 oz) 02/28/2024 3:15 PM EST Height 162.6 cm (5' 4 ) 02/28/2024 3:15 PM EST Body Mass Index 35.84 02/28/2024 3:15 PM EST Plan of Treatment Health Maintenance Due Date Last Done Comments DTaP,Tdap,and Td Vaccines (1 - Tdap) 08/10/1970 Pneumococcal Vaccine: 65+ Years (1 of 1 - PCV) 08/10/2016 Zoster Vaccines (2 of 2) 06/30/2019 05/05/2019 Breast Cancer Screening 11/11/2021 11/12/19 20, 06/28/2018, 06/13/2017 COVID-19 Vaccine ( season) 2023 12/09/2022, 12/04/2021, 07/03/2021, Additional history exists Colorectal Cancer Screening: Colonoscopy 12/27/2023 Depression Screening 12/27/2023 Hepatitis C Screening 12/27/2023 Medicare Annual Wellness Visit 12/27/2023 Osteoporosis Screening (Bone Density Screening) 12/27/2023 Social Influencers of Health Screening 02/28/2025 02/29/2024 Falls Risk Assessment 03/05/2025 03/05/2024 Colorectal Cancer Screening: FIT-DNA (Cologuard) Discontinued 01/28/2020, 01/28/2020 Influenza Vaccine Completed 11/19/2023, , 12/04/2021, Additional history exists RSV Immunization Patients 60+ Years Old Completed 11/19/2023 HIB Vaccines Aged Out No longer eligi ble based on patient's age to complete this topic HPV Vaccines Aged Out No longer eligi ble based on patient's age to complete this topic Hepatitis A Vaccines Aged Out No long er eligible based on patient's age to complete this topic Hepatitis B Vaccines Aged Out No long er eligible based on patient's age to complete this topic IPV Vaccines Aged Out No longer eligi ble based on patient's age to complete this topic MMR Vaccines Aged Out No longer eligi ble based on patient's age to complete this topic Meningococcal ACWY Vaccine Aged Out N o longer eligible based on patient's age to complete this topic RSV Immunization Patients Under 20 months Aged Out No longer eligible based on patient's age to complete this topic Varicella Vaccines Aged Out No longer eligible based on patient's age to complete this topic Medical Devices Implanted Type Area Automobile Body Repairer Device Identifier Shelf Expiration Date Model / Serial / Lot Stent Uret [id number] Stretch W/O Gw - Sn/A - [id number] Implanted:Qty: 1 on 01/30/2024 by Malik Dolan MD at [facility] Stents Left: Ureter [employer]GYNECOLG Y 07/17/2026 [id number] / N/A / [id number] Procedures Procedure Name Priority Date/Time Associated Diagnosis Comments PREPARE RBC Routine 03/27/2024 12:48 PM EST Acute blood loss anemia E ANTIGEN TYPE Routine 03/27/2024 12:14 PM EST Acute blood loss anemia FYA ANTIGEN TYPE Routine 03/27/2024 12:1 4 PM EST Acute blood loss anemia ANTIBODY IDENTIFICATION Routine 03/27/2024 12:14 PM EST Acute blood loss anemia TYPE AND SCREEN STAT 03/27/2024 12:14 PM EST Acute blood loss anemia HEMOGLOBIN AND HEMATOCRIT Routine 03/26/2024 2:31 PM EST Acute blood loss anemia CBC WITH AUTO DIFFERENTIAL Routine 03/05/2024 5:29 AM EST BASIC METABOLIC PANEL Routine 03/05/2024 5:29 AM EST CBC AND DIFFERENTIAL Routine 03/05/2024 5:29 AM EST CBC WITH AUTO DIFFERENTIAL Routine 03/04/2024 6:05 AM EST BASIC METABOLIC PANEL Routine 03/04/2024 6:05 AM EST CBC AND DIFFERENTIAL Routine 03/04/2024 6:05 AM EST CBC WITH AUTO DIFFERENTIAL Routine 03/03/2024 8:47 AM EST BASIC METABOLIC PANEL Routine 03/03/2024 8:47 AM EST CBC AND DIFFERENTIAL Routine 03/03/2024 8:47 AM EST CBC WITH AUTO DIFFERENTIAL Routine 03/02/2024 6:18 AM EST BASIC METABOLIC PANEL Routine 03/02/2024 6:18 AM EST CBC AND DIFFERENTIAL Routine 03/02/2024 6:18 AM EST POCT GLUCOSE BLOOD Routine 03/01/2024 8: 55 PM EST CBC WITH AUTO DIFFERENTIAL Routine 03/01/2024 7:03 AM EST BASIC METABOLIC PANEL Routine 03/01/2024 7:03 AM EST CBC AND DIFFERENTIAL Routine 03/01/2024 7:03 AM EST CULTURE URINE Routine 02/29/2024 4:49 PM EST CULTURE BLOOD STAT 02/29/2024 10:59 AM EST CULTURE BLOOD STAT 02/29/2024 10:41 AM EST C-REACTIVE PROTEIN Add-On 02/29/2024 6: 12 AM EST HEMOGLOBIN A1C Routine 02/29/2024 6:12 AM EST MAGNESIUM Routine 02/29/2024 6:12 AM EST COMPLETE BLOOD COUNT Routine 02/29/2024 6:12 AM EST BASIC METABOLIC PANEL Routine 02/29/2024 2:17 AM EST LACTATE, WITH REFLEX STAT 02/28/2024 10:10 PM EST URINALYSIS WITH REFLEX MICROSCOPIC STAT 02/28/2024 10:05 PM EST URINALYSIS WITH REFLEX MICROSCOPIC STAT 02/28/2024 10:[address] ABDOMEN PELVIS WO CONTRAST STAT 02/28/2024 7:16 PM EST ECG 12-LEAD STAT 02/28/2024 5:32 PM EST CBC WITH AUTO DIFFERENTIAL STAT 02/28/2024 3:42 PM EST LIPASE STAT 02/28/2024 3:42 PM EST MAGNESIUM STAT 02/28/2024 3:42 PM EST COMPREHENSIVE METABOLIC PANEL STAT 02/28/2024 3:42 PM EST CBC AND DIFFERENTIAL STAT 02/28/2024 3:42 PM EST ECG ANNOTATED 02/28/2024 BACTERIAL IDENTIFICATION AND SUSCEPTIBILITY, AEROBIC Routine 02/06/2024 12:00 AM EST Urinary tract infection, site not specified XR UROGRAM RETROGRADE Routine 01/30/2024 1:53 PM EST Pain CULTURE URINE Routine 01/30/2024 1:22 PM EST Calculus of kidney [place] CYSTO W URETEROSCOPY/PYELOSCO PY W LITHOTRIPSY INCL INDWELLING URTRL STNT 01/30/2024 1:01 PM EST Calculus of kidney Case Notes C-ARM, HOLMIUM UMS Special Needs UMS ECG 12-LEAD Routine 01/30/2024 11:07 AM EST POCT GLUCOSE BLOOD Routine 01/30/2024 10 :28 AM EST TERESE SCREENING DIGITAL Routine 11/12/2019 9:29 AM EDT Encounter for screening mammogram for malignant neoplasm of breast from Last 3 Months or Most Recently Relevant to Health Maintenance Results * Transfuse RBC (03/27/2024 5:36 PM EST) Jermaine Gold MD BLOOD TRANSFUSION OR DERABLES * Prepare RBC: 1 Units (03/27/2024 12:48 PM EST) Product Code [id number] 03/27/2024 3:32 PM EST [facility] Unit Number [id number] 03/27/19 25 3:32 PM EST [facility] Crossmatch Compatible 03/27/2024 3:19 PM EST [facility] Dispense Status Transfused 03/27/2024 3:32 PM EST [facility] Unit ABO Rh ONEG 03/27/2024 3:32 PM EST SP Unit Expiration Date Time [id number] 03/27/2024 3:32 PM EST [facility] Unit Blood Type 9500 03/27/2024 3:32 PM EST [facility] Blood Venous blood specimen / Unknown 03/27/2024 12:48 PM EST 03/27/2024 12:29 PM EST Jermaine Gold MD BLOOD BANK PRODUCT O RDERABLES [facility] [address] [place] [address], [place] [phone] [facility] * Fya antigen type (03/27/2024 12:14 PM EST) Fya Antigen Negative 03/27/2024 3:36 PM EST [facility] Blood Venous blood specimen / Unknown Venipuncture / Unknown 03/27/2024 12:14 PM EST 03/27/2024 12:29 PM EST Jermaine Gold MD LAB BLOOD BANK TEST ORDERABLES Performing Organization Address City/[facility]/ZIP Co de Phone Number [facility] [address] [place] [address], [place] [phone] * E antigen type (03/27/2024 12:14 PM EST) E Antigen Positive 03/28/2024 11:38 AM EST [facility] Blood Venous blood specimen / Unknown Venipuncture / Unknown 03/27/2024 12:14 PM EST 03/27/2024 12:29 PM EST Jermaine Gold MD LAB BLOOD BANK TEST ORDERABLES Performing Organization Address City/[facility]/ZIP Co de Phone Number [facility] [address] [place] [address], [place] [phone] * Antibody identification (03/27/2024 12:14 PM EST) Antibody Identification Fya Antibody (Moy a) 03/27/2024 2:55 PM EST [facility] Blood Venous blood specimen / Unknown Venipuncture / Unknown 03/27/2024 12:14 PM EST 03/27/2024 12:29 PM EST Jermaine Gold MD LAB BLOOD BANK TEST ORDERABLES Performing Organization Address City/[facility]/ZIP Co de Phone Number [facility] [address] [place] [address], * Type and screen (03/27/2024 12:14 PM EST) Pathologist [facility] ABO Group O 03/27/2024 2:54 PM EST [facility] Rh Type Positive 03/27/2024 2:54 PM EST [facility] Antibody Screen Positive 03/27/2024 2:54 PM EST [facility] Blood Venous blood specimen / Unknown Venipuncture / Unknown 03/27/2024 12:14 PM EST 03/27/2024 12:29 PM EST Jermaine Gold MD LAB BLOOD BANK TEST ORDERABLES Performing Organization Address City/[facility]/ZIP Co de Phone Number [facility] [address] [place] [address], [place] [phone] * (ABNORMAL) Hemoglobin and hematocrit (03/26/2024 2:31 PM EST) Hemoglobin 7.4(L) 11.5 - 16.0 g/dL LAB HEMETOLOGY METHOD 03/26/2024 6:30 PM EST [facility] Hematocrit 24.5(L) 35.0 - 47.0 % LAB HEMETOLOGY METHOD 03/26/2024 6:30 PM EST [facility] Blood Venous blood specimen / Unknown Venipuncture / Unknown 03/26/2024 2:31 PM EST 03/26/2024 2:31 PM EST Jermaine Gold MD LAB BLOOD ORDERABLES [facility] [address] [place] [address], * (ABNORMAL) CBC auto differential (03/05/2024 5:29 AM EST) Only the most recent of6 resultswithin the time period is included. WBC 9.7 4.8 - 10.8 K/mcL LAB HEMETOLOGY METHOD 03/05/2024 6:37 AM [facility] RBC 2.40(L) 3.80 - 4.80 M/[facility] LAB HEMETOLOGY METHOD 03/05/2024 6:37 AM [facility] Hemoglobin 7.8(L) 11.5 - 16.0 g/dL LAB HEMETOLOGY METHOD 03/05/2024 6:37 AM [facility] Hematocrit 24.5(L) 35.0 - 47.0 % LAB HEMETOLOGY METHOD 03/05/2024 6:37 AM [facility] MCV 100.8(H) 79.0 - 98.0 FL LAB HEMETOLOGY METHOD 03/05/2024 6:37 AM [facility] MCH 32.1(H) 27.0 - 32.0 pcg LAB HEMETOLOGY METHOD 03/05/2024 6:37 AM [facility] MCHC 31.8(L) 32.0 - 37.0 g/dL LAB HEMETOLOGY METHOD 03/05/2024 6:37 AM [facility] RDW 17.5(H) 11.0 - 15.0 % LAB HEMETOLOGY METHOD 03/05/2024 6:37 AM [facility] Platelets 437(H) 130 - 400 K/mcL LAB HEMETOLOGY METHOD 03/05/2024 6:37 AM [facility] MPV 10.5 7.0 - 11.0 FL LAB HEMETOLOGY METHOD 03/05/2024 6:37 AM [facility] NRBC 0.0 <1.0 % LAB HEMETOLOGY METHOD 03/05/2024 6:37 AM [facility] NRBC Absolute 0.00 <0.10 K/mcL LAB HEMETOLOGY METHOD 03/05/2024 6:37 AM [facility] Neutrophils Relative 61.3 % LAB HEMETOLOGY METHOD 03/05/2024 6:37 AM [facility] Lymphocytes Relative 20.7 % LAB HEMETOLOGY METHOD 03/05/2024 6:37 AM [facility] Monocytes Relative 11.6 % LAB HEMETOLOGY METHOD 03/05/2024 6:37 AM [facility] Eosinophils Relative 4.6 % LAB HEMETOLOGY METHOD 03/05/2024 6:37 AM [facility] Basophils Relative 0.6 % LAB HEMETOLOGY METHOD 03/05/2024 6:37 AM [facility] Immature Granulocytes Relative 1.2 % LAB HEMETOLOGY METHOD 03/05/2024 6:37 AM [facility] Neutrophils Absolute 5.92 1.50 - 7.00 K/mcL LAB HEMETOLOGY METHOD 03/05/2024 6:37 AM [facility] Lymphocytes Absolute 2.00 1.00 - 5.00 K/mcL LAB HEMETOLOGY METHOD 03/05/2024 6:37 AM [facility] Monocytes Absolute 1.12(H) 0.20 - 1.00 K/mcL LAB HEMETOLOGY METHOD 03/05/2024 6:37 AM EST [facility] Eosinophils Absolute 0.44 0.00 - 0.50 K/mcL LAB HEMETOLOGY METHOD 03/05/2024 6:37 AM EST [facility] Basophils Absolute 0.06 0.00 - 0.20 K/mcL LAB HEMETOLOGY METHOD 03/05/2024 6:37 AM [facility] Immature Granulocytes Absolute 0.12(H) 0.00 - 0.03 K/mcL LAB HEMETOLOGY METHOD 03/05/2024 6:37 AM [facility] Blood Venous blood specimen / Unknown Venipuncture / Unknown 03/05/2024 5:29 AM EST 03/05/2024 6:23 AM EST Jermaine Gold MD LAB BLOOD ORDERABLES [facility] [address] [place] [address], * (ABNORMAL) Basic metabolic panel (03/05/2024 5:29 AM EST) Only the most recent of6 resultswithin the time period is included. Sodium 143 133 - 145 mmol/L LAB CHEMISTRY METHOD 03/05/2024 6:59 AM [facility] Potassium 4.7 3.5 - 5.5 mmol/L LAB CHEMISTRY METHOD 03/05/2024 6:59 AM [facility] Chloride 108 96 - 110 mmol/L LAB CHEMISTRY METHOD 03/05/2024 6:59 AM [facility] CO2 31 21 - 32 mmol/L LAB CHEMISTRY METHOD 03/05/2024 6:59 AM [facility] Anion Gap 4 3 - 11 LAB CHEMISTRY METHOD 03/05/2024 6:59 AM [facility] Glucose 123(H) 70 - 100 mg/dL LAB CHEMISTRY METHOD 03/05/2024 6:59 AM [facility] BUN 14 5 - 25 mg/dL LAB CHEMISTRY METHOD 03/05/2024 6:59 AM EST [facility] Creatinine 0.76 0.50 - 1.10 mg/dL LAB CHEMISTRY METHOD 03/05/2024 6:59 AM [facility] eGFR 83 >=60 mL/min/1. 73m2 LAB CHEMISTRY METHOD 03/05/2024 6:59 AM [facility] Comment:Calculation based on the??Chronic Kidney Disease Epidemiology Collaboration (CKD-EPI) equation refit??without adjustment for race. BUN/Creatinine Ratio 18.4 LAB CHEMISTRY METHOD 03/05/2024 6:59 AM [facility] Calcium 9.2 8.5 - 10.5 mg/dL LAB CHEMISTRY METHOD 03/05/2024 6:59 AM [facility] Blood Venous blood specimen / Unknown Venipuncture / Unknown 03/05/2024 5:29 AM EST 03/05/2024 6:26 AM EST Jermaine Gold MD LAB BLOOD ORDERABLES [facility] [address] [place] [address], * (ABNORMAL) POCT Glucose, blood (03/01/2024 8:55 PM EST) Only the most recent of2 resultswithin the time period is included. Glucose POCT 152(H) 70 - 100 mg/dL 03/01/2024 8:55 PM EST [facility] Blood Capillary blood specimen / Unknown 03/01/2024 8:55 PM EST 03/01/2024 8:57 PM EST Jermaine Gold MD LAB POINT OF CARE TE ST DOCKED DEVICE UNSOLICITED RESULTS [facility] [address] [place] [address], [place] [phone] * Culture urine (02/29/2024 4:49 PM EST) Only the most recent of2 resultswithin the time period is included. Culture, Urine <10,000 CFU/mL gram negative bacilli, insignificant count, no further workup 03/01/2024 1:31 PM EST [facility] Urine Urine specimen obtained by clean catch procedure / Unknown Non-blood Collection / Unknown 02/29/2024 4:49 PM EST 02/29/2024 5:18 PM EST Jermaine Gold MD LAB MICROBIOLOGY - G ENERAL ORDERABLES [facility] [address] [place] [address], [place] [phone] * Culture blood (02/29/2024 10:59 AM EST) Only the most recent of2 resultswithin the time period is included. [facility] Culture, Blood No growth at 5 days 03/05/2024 12:01 PM EST [facility] Blood Venous blood specimen / Unknown Venipuncture / Unknown 02/29/2024 10:59 AM EST 02/29/2024 11:03 AM EST Jermaine Gold MD LAB MICROBIOLOGY - G ENERAL ORDERABLES [facility] [address] [place] [address], [place] [phone] * (ABNORMAL) Complete blood count (02/29/2024 6:12 AM EST) WBC 12.8(H) 4.8 - 10.8 K/[facility] LAB HEMETOLOGY METHOD 02/29/2024 7:10 AM EST [facility] RBC 2.50(L) 3.80 - 4.80 M/[facility] LAB HEMETOLOGY METHOD 02/29/2024 7:10 AM [facility] Hemoglobin 7.9(L) 11.5 - 16.0 g/dL LAB HEMETOLOGY METHOD 02/29/2024 7:10 AM [facility] Hematocrit 24.4(L) 35.0 - 47.0 % LAB HEMETOLOGY METHOD 02/29/2024 7:10 AM [facility] MCV 98.0 79.0 - 98.0 FL LAB HEMETOLOGY METHOD 02/29/2024 7:10 AM [facility] MCH 31.7 27.0 - 32.0 pcg LAB HEMETOLOGY METHOD 02/29/2024 7:10 AM [facility] MCHC 32.4 32.0 - 37.0 g/dL LAB HEMETOLOGY METHOD 02/29/2024 7:10 AM [facility] RDW 17.5(H) 11.0 - 15.0 % LAB HEMETOLOGY METHOD 02/29/2024 7:10 AM [facility] Platelets 453(H) 130 - 400 K/mcL LAB HEMETOLOGY METHOD 02/29/2024 7:10 AM [facility] MPV 11.3(H) 7.0 - 11.0 FL LAB HEMETOLOGY METHOD 02/29/2024 7:10 AM [facility] NRBC 0.0 <1.0 % LAB HEMETOLOGY METHOD 02/29/2024 7:10 AM [facility] NRBC Absolute 0.00 <0.10 K/mcL LAB HEMETOLOGY METHOD 02/29/2024 7:10 AM [facility] Blood Venous blood specimen / Unknown Venipuncture / Unknown 02/29/2024 6:12 AM EST 02/29/2024 6:39 AM EST Judit SPARKS LAB BLOOD ORDERABLES Performing Organization Address [facility] [place]/[facility]/ZIP Co de Phone Number [facility] [address] [place] [address], * (ABNORMAL) C-reactive protein (02/29/2024 6:12 AM EST) C-Reactive Protein 17.90(H) <=0.50 mg/dL LAB CHEMISTRY METHOD 02/29/2024 2:14 PM EST [facility] Blood Venous blood specimen / Unknown Venipuncture / Unknown 02/29/2024 6:12 AM EST 02/29/2024 6:39 AM EST Jermaine Gold MD LAB BLOOD ORDERABLES Performing Organization Address [facility] [place]/[facility] Co de Phone Number [facility] [address] [place] [address], * (ABNORMAL) Magnesium (02/29/2024 6:12 AM EST) Only the most recent of2 resultswithin the time period is included. Pathologist [facility] Magnesium 1.8(L) 1.9 - 2.6 mg/dL LAB CHEMISTRY METHOD 02/29/2024 7:21 AM EST [facility] Blood Venous blood specimen / Unknown Venipuncture / Unknown 02/29/2024 6:12 AM EST 02/29/2024 6:39 AM EST Judit SPARKS LAB BLOOD ORDERABLES Performing Organization Address City/[facility]/ZIP Co de Phone Number [facility] [address] [place] [address], * (ABNORMAL) Hemoglobin A1c (02/29/2024 6:12 AM EST) Hemoglobin A1C 6.7(H) <6.5 % LAB CHEMISTRY METHOD 02/29/2024 11:24 AM EST [facility] Mean Bld Glu Estim. 146 mg/dL LAB CHEMISTRY METHOD 02/29/2024 11:24 AM EST [facility] Blood Venous blood specimen / Unknown Venipuncture / Unknown 02/29/2024 6:12 AM EST 02/29/2024 6:39 AM EST Judit SPARKS LAB BLOOD ORDERABLES Performing Organization Address City/[facility]/ZIP Co de Phone Number [facility] [address] [place] [address], [place] [phone] * Lactate, with reflex (02/28/2024 10:10 PM EST) [facility] LACTIC ACID 1.0 0.4 - 2.0 mmol/L LAB CHEMISTRY METHOD 02/28/2024 10:48 PM [facility] Blood Venous blood specimen / Unknown Venipuncture / Unknown 02/28/2024 10:10 PM EST 02/28/2024 10:20 PM EST Igor SPARKS LAB BLOOD ORDERAB LES Performing Organization Address [facility] [place]/ZIP Co de Phone Number [facility] [address] [place] [address], [place] [phone] * (ABNORMAL) Urinalysis with reflex microscopic (02/28/2024 10:05 PM EST) [facility] Specific [place] Urine 1.013 1.003 - 1.030 LAB URINALYSIS - AUTOMATED METHOD 02/28/2024 10:38 PM [facility] pH, Urine 6.0 5.0 - 8.0 pH LAB URINALYSIS - AUTOMATED METHOD 02/28/2024 10:38 PM [facility] Leukocytes, Urine Large(A) Negative LAB URINALYSIS - AUTOMATED METHOD 02/28/2024 10:38 PM [facility] Nitrite, Urine Negative Negative LAB URINALYSIS - AUTOMATED METHOD 02/28/2024 10:38 PM [facility] Protein, Urine 30(A) <=Trace mg/dL LAB URINALYSIS - AUTOMATED METHOD 02/28/2024 10:38 PM [facility] Glucose, Urine Negative Negative mg/dL LAB URINALYSIS - AUTOMATED METHOD 02/28/2024 10:38 PM [facility] Ketones, Urine Negative Negative mg/dL LAB URINALYSIS - AUTOMATED METHOD 02/28/2024 10:38 PM [facility] Urobilinogen , Urine 0.2 0.2 - 1.0 mg/dL LAB URINALYSIS - AUTOMATED METHOD 02/28/2024 10:38 PM [facility] Bilirubin, Urine Negative Negative LAB URINALYSIS - AUTOMATED METHOD 02/28/2024 10:38 PM [facility] Blood, Urine Moderate(A) Negative LAB URINALYSIS - AUTOMATED METHOD 02/28/2024 10:38 PM [facility] RBC, Urine 12.6(H) 0 - 4 /HPF LAB URINALYSIS - AUTOMATED METHOD 02/28/2024 10:38 PM [facility] WBC, Urine 203.5(H) 0 - 4 /HPF LAB URINALYSIS - AUTOMATED METHOD 02/28/2024 10:38 PM [facility] Squamous Epithelial, Urine 90(H) 0 - 60 /LPF LAB URINALYSIS - AUTOMATED METHOD 02/28/2024 10:38 PM [facility] Bacteria, Urine Many(A) Negative /HPF LAB URINALYSIS - AUTOMATED METHOD 02/28/2024 10:38 PM [facility] Hyaline Casts, Urine 1.2 0 - 3 /LPF LAB URINALYSIS - AUTOMATED METHOD 02/28/2024 10:38 PM [facility] Urine Urine specimen obtained by clean catch procedure / Unknown Non-blood Collection / Unknown 02/28/2024 10:05 PM EST 02/28/2024 10:21 PM EST Igor SPARKS LAB URINE ORDERAB LES [facility] [address] [facility] [place] [address], * CT Abdomen Pelvis wo Contrast (02/28/2024 7:16 PM EST) Anatomical Region Laterality Modality Body Computed Tomogra phy 02/28/2024 7:56 PM EST Impressions 02/28/2024 7:56 PM EST 1. Right ventral lateral large abdominal wall hernia containing multiple loops of nonobstructive bowel. 2. Left-sided NU stent in place with a large calculus adjacent in the lower pole, without significant hydronephrosis. 3. Large exophytic cyst in the left kidney with possible intracystic hemorrhage. 4. Additional findings as described. This document has been electronically signed by: Ozzie Bales MD on 02/28/2024 19:56:41 Narrative 02/28/2024 7:56 PM EST EXAM: CT Abdomen and Pelvis Without Intravenous Contrast COMPARISON: No relevant prior studies available. FINDINGS: LUNG BASES: Atelectasis. HEART: Cardiomegaly without significant pericardial effusion. Coronary artery calcifications. MEDIASTINUM: Small hiatal hernia. ABDOMEN: LIVER: Unremarkable. GALLBLADDER AND BILE DUCTS: Mildly distended gallbladder. No calcified stones. No ductal dilation. PANCREAS: Atrophic pancreas. No ductal dilation. SPLEEN: Unremarkable. No splenomegaly. ADRENALS: Nodular thickening of the left adrenal gland. KIDNEYS AND URETERS: Hypodense bilateral renal cysts with a large exophytic cysts extending into the renal sinus on the left, measuring up to 15.5 cm. There is associated layering intermediate dense material, suggesting possible intracystic hemorrhage. Bilateral perinephric stranding, left more than right. 2.1 cm calculus in the left lower pole kidney, with nephroureteral stent in place proximally coiled in the lower pole calyx abutting the stone, distally coiled in the bladder. No significant hydronephrosis. STOMACH AND BOWEL: Right ventral lateral large abdominal wall hernia containing multiple loops of nonobstructive bowel. Scattered colonic diverticulosis without diverticulitis or colitis. The colon is partially decompressed distally which limits evaluation. PELVIS: APPENDIX: No findings to suggest acute appendicitis. BLADDER: Tiny focus of air in the anterior bladder. No stones. REPRODUCTIVE: Post hysterectomy. ABDOMEN and PELVIS: INTRAPERITONEAL SPACE: Unremarkable. No free air. No significant fluid collection. BONES/JOINTS: Osteopenia with diffuse multilevel spondylosis. No acute fracture. No dislocation. SOFT TISSUES: See above. VASCULATURE: Diffuse atheromatous plaque disease throughout the aorta and branch vessels, without aneurysmal dilatation. LYMPH NODES: Prominent inguinal nodes. Procedure Note Ozzie Bales MD - 02/28/2024 EXAM: CT Abdomen and Pelvis Without Intravenous Contrast COMPARISON: No relevant prior studies available. FINDINGS: LUNG BASES: Atelectasis. HEART: Cardiomegaly without significant pericardial effusion. Coronary artery calcifications. MEDIASTINUM: Small hiatal hernia. ABDOMEN: LIVER: Unremarkable. GALLBLADDER AND BILE DUCTS: Mildly distended gallbladder. No calcified stones. No ductal dilation. PANCREAS: Atrophic pancreas. No ductal dilation. SPLEEN: Unremarkable. No splenomegaly. ADRENALS: Nodular thickening of the left adrenal gland. KIDNEYS AND URETERS: Hypodense bilateral renal cysts with a large exophytic cysts extending into the renal sinus on the left, measuring up to 15.5 cm. There is associated layering intermediate dense material, suggesting possible intracystic hemorrhage. Bilateral perinephric stranding, left more than right. 2.1 cm calculus in the left lower pole kidney, with nephroureteral stent in place proximally coiled in thelower pole calyx abutting the stone, distally coiled in the bladder. No significant hydronephrosis. STOMACH AND BOWEL: Right ventral lateral large abdominal wall hernia containing multiple loops of nonobstructive bowel. Scattered colonic diverticulosis without diverticulitis or colitis. The colon is partially decompressed distally which limits evaluation. PELVIS: APPENDIX: No findings to suggest acute appendicitis. BLADDER: Tiny focus of air in the anterior bladder. No stones. REPRODUCTIVE: Post hysterectomy. ABDOMEN and PELVIS: INTRAPERITONEAL SPACE: Unremarkable. No free air. No significant fluid collection. BONES/JOINTS: Osteopenia with diffuse multilevel spondylosis. No acute fracture. No dislocation. SOFT TISSUES: See above. VASCULATURE: Diffuse atheromatous plaque disease throughout the aortaand branch vessels, without aneurysmal dilatation. LYMPH NODES: Prominent inguinal nodes. IMPRESSION: 1. Right ventral lateral large abdominal wall hernia containing multiple loops of nonobstructive bowel. 2. Left-sided NU stent in place with a large calculus adjacent in the lower pole, without significant hydronephrosis. 3. Large exophytic cyst in the left kidney with possible intracystic hemorrhage. 4. Additional findings as described. This document has been electronically signed by: Ozzie Bales MD on 02/28/2024 19:56:[address] PROCEDURES * ECG 12 lead (02/28/2024 5:32 PM EST) Only the most recent of2 resultswithin the time period is included. Pathologist [facility] Ventricular Rate ECG 88 BPM GEMUSE Atrial Rate 88 BPM GEMUSE P-R Interval 142 ms GEMUSE QRS Duration 92 ms GEMUSE Q-T Interval 386 ms GEMUSE QTc 467 ms GEMUSE P Wave [place] 66 degrees GEMUSE R [place] 49 degrees GEMUSE T [place] 29 degrees GEMUSE ECG Interpretation Normal sinus rhythm Normal ECG When compared with ECG of 30-JAN-2024 11:07, No significant change was found Confirmed by Jerri HENNESSY JAMES ([id number]) on 02/28/2024 8:14:39 PM GEMUSE 02/28/2024 5:32 PM EST 02/28/2024 8:14 PM EST Grant Cotto DO ECG ORDERABLES GEMUSE * Lipase (02/28/2024 3:42 PM EST) [facility] Lipase 43 13 - 75 unit/L LAB CHEMISTRY METHOD 02/28/2024 4:22 PM EST [facility] Blood Venous blood specimen / Unknown Venipuncture / Unknown 02/28/2024 3:42 PM EST 02/28/2024 3:53 PM EST Ash Rojo MD LAB BLOOD ORDERABLE S [facility] [address] [place] [address], [place] [phone] * (ABNORMAL) Comprehensive metabolic panel (02/28/2024 3:42 PM EST) Sodium 138 133 - 145 mmol/L LAB CHEMISTRY METHOD 02/28/2024 5:16 PM [facility] Potassium 2.8(LL) 3.5 - 5.5 mmol/L LAB CHEMISTRY METHOD 02/28/2024 5:16 PM [facility] Chloride 102 96 - 110 mmol/L LAB CHEMISTRY METHOD 02/28/2024 5:16 PM [facility] CO2 26 21 - 32 mmol/L LAB CHEMISTRY METHOD 02/28/2024 5:16 PM [facility] Anion Gap 10 3 - 11 LAB CHEMISTRY METHOD 02/28/2024 5:16 PM [facility] Glucose 248(H) 70 - 100 mg/dL LAB CHEMISTRY METHOD 02/28/2024 5:16 PM [facility] BUN 38(H) 5 - 25 mg/dL LAB CHEMISTRY METHOD 02/28/2024 5:16 PM [facility] Creatinine 1.68(H) 0.50 - 1.10 mg/dL LAB CHEMISTRY METHOD 02/28/2024 5:16 PM [facility] eGFR 32(L) >=60 mL/min/1. 73m2 LAB CHEMISTRY METHOD 02/28/2024 5:16 PM [facility] Comment:Calculation based on the??Chronic Kidney Disease Epidemiology Collaboration (CKD-EPI) equation refit??without adjustment for race. BUN/Creatinine Ratio 22.6 LAB CHEMISTRY METHOD 02/28/2024 5:16 PM [facility] Calcium 9.2 8.5 - 10.5 mg/dL LAB CHEMISTRY METHOD 02/28/2024 5:16 PM [facility] AST (SGOT) 13 10 - 42 unit/L LAB CHEMISTRY METHOD 02/28/2024 5:16 PM EST [facility] ALT (SGPT) 21 10 - 60 unit/L LAB CHEMISTRY METHOD 02/28/2024 5:16 PM [facility] Alkaline Phosphatase 132(H) 42 - 121 unit/L LAB CHEMISTRY METHOD 02/28/2024 5:16 PM [facility] Total Protein 6.6 6.0 - 8.0 g/dL LAB CHEMISTRY METHOD 02/28/2024 5:16 PM [facility] Albumin 2.7(L) 3.2 - 5.0 g/dL LAB CHEMISTRY METHOD 02/28/2024 5:16 PM [facility] Total Bilirubin 0.9 0.0 - 1.4 mg/dL LAB CHEMISTRY METHOD 02/28/2024 5:16 PM [facility] Blood Venous blood specimen / Unknown Venipuncture / Unknown 02/28/2024 3:42 PM EST 02/28/2024 3:53 PM EST Ash Rojo MD LAB BLOOD ORDERABLE S [facility] [address] [place] [address], * ECG-Annotated (02/28/2024) Provider Onbase MD ECG ORDERABLES * Bacterial identification and susceptibility, aerobic (02/06/2024 12:00 AM EST) Culture, Bacterial ID and Sensitivity Multiple bacterial morphotypes present consistent with either contamination or urogenital mercedes. Suggest repeat specimen, if clinically indicated. 02/08/2024 7:44 AM EST [facility] Other Topography unknown / Unknown 02/06/2024 02/07/2024 10:36 AM EST Malik Dolan MD LAB MICROBIO LOGY - GENERAL ORDERABLES [facility] [address] [place] [address], * XR Urogram Retrograde (01/30/2024 1:53 PM EST) Anatomical Region Laterality Modality Body Radio Fluoroscop y 01/31/2024 7:39 AM EST Narrative 01/31/2024 7:39 AM EST Fluoroscopic spot radiographs obtained during a left endourologic procedure are submitted. No radiologist consultation was requested or provided during this procedure and there is no radiologist professional charge. This report is generated for documentation purposes only. The dose-area product for this procedure was 4.2344 Gy*cm2. PQRI CPT II G9500 -------- FINAL REPORT -------- Dictated By: Adolfo Rocha Dictated Date: 01/31/2024 07:39 ET Assigned Physician: Adolfo Rocha Reviewed and Electronically Signed By: Adolfo Rocha Signed Date: 01/31/2024 07:39 ET Workstation ID: [id number] Transcribed By: Self Edit Transcribed Date: 01/31/2024 07:39 ET Procedure Note Adolfo Rocha MD - 01/31/2024 Fluoroscopic spot radiographs obtained during a left endourologicprocedure are submitted. No radiologist consultation was requested orprovided during this procedure and there is no radiologist professionalcharge. This report is generated for documentation purposes only. The dose-area product for this procedure was 4.2344 Gy*cm2. PQRI CPT II G9500 -------- FINAL REPORT -------- Dictated By: Adolfo Rocha Dictated Date: 01/31/2024 07:39 ET Assigned Physician: Adolfo Rocha Reviewed and Electronically Signed By: Adolfo Rocha Signed Date: 01/31/2024 07:39 ET Workstation ID: [id number] Transcribed By: Self Edit Transcribed Date: 01/31/2024 07:39 ET Malik Dolan MD IMG FLUOROSC OPY PROCEDURES * TERESE SCREENING DIGITAL (11/12/2019 9:29 AM EDT) Anatomical Region Laterality Modality Mammography 11/12/2019 6:54 AM EDT Narrative 11/12/2019 9:29 AM EDT [facility] Diagnostic Imaging Department [address] [place] [id number] Patient: ??ROSELYN POMPA ?/Age/Sex: 1950 69 - F Unit#: ??[id number] ? Location/Status: ??SPDIMAM/REG CLI ? Mnemonic/Ordering Site: ??DIGSC/SPMAM Ordering Physician: ??WASHINGTON ARIAS MD [facility] Screening Digital - 11/12/19 - 0751 INDICATION: SCREENING COMPARISON: [facility] mammograms dating back to ?? 06/10/2014 TECHNIQUE: CC and MLO views of the breasts were obtained, using full field digital mammography with 3D tomosynthesis views in the MLO projection. A cleavage view was also obtained. ??Anterior compression views of each breast obtained in CC projection. Computer aided detection with the PrimeSense 7.2-H was employed. FINDINGS: The breasts contain scattered fibroglandular tissues. No suspicious masses, suspicious microcalcifications, or areas of architectural distortion are identified. ??Benign-appearing breast calcifications are present bilaterally. There are no secondary signs of breast malignancy. ??Compared to the prior exam, no adverse interval change. IMPRESSION: ??No specific mammographic evidence of breast malignancy. Lack of an imaging correlate should not deter or delay biopsy of a clinically significant palpable finding. BI-RADS ??- Category 2 - Benign finding 3342F, 7025F Annual screening mammography is recommended. Patient entered into a reminder system with a target date for the next mammogram. (G0202 / [id number]) , ??[id number] Dictating Physician: ??MARIO ALBERTO FERRELL MD Electronically Signed by: ??MARIO ALBERTO FERRELL MD Dic Date/Time: ??11/12/19921 Sign date/Time: ??11/12/19928 Procedure Note Mario Alberto Ferrell MD - 03/10/2022 [facility] Diagnostic Imaging Department [address] [place], [place] [id number] Patient: LLOYD POMPAJAZMIN Bailey /Age/Sex: 1950 69 - F Unit#: [id number] [facility] Ordering Physician: WASHINGTON ARIAS MD [facility] Screening Digital - 11/12/19 - 0751 INDICATION: SCREENING COMPARISON: [facility] mammograms dating back to 06/10/2014 TECHNIQUE: CC and MLO views of the breasts were obtained, using full field digital mammography with 3D tomosynthesis views in the MLO projection. A cleavageview was also obtained. Anterior compression views of each breast obtained inCC projection. Computer aided detection with the iCAD Prognomix 7.2-H was employed. FINDINGS: The breasts contain scattered fibroglandular tissues. No suspicious masses, suspicious microcalcifications, or areas ofarchitectural distortion are identified. Benign-appearing breast calcifications arepresent bilaterally. There are no secondary signs of breast malignancy. Comparedto the prior exam, no adverse interval change. IMPRESSION: No specific mammographic evidence of breast malignancy. Lack of an imaging correlate should not deter or delay biopsy of aclinically significant palpable finding. BI-RADS - Category 2 - Benign finding 3342F, 7025F Annual screening mammography is recommended. Patient entered into a reminder system with a target date for the next mammogram. [id number] / [id number]) , [id number] Dictating Physician: MARIO ALBERTO FERRELL MD Electronically Signed by: MARIO ALBERTO FERRELL MD Dic Date/Time: 11/12/19921 Sign date/Time: 11/12/19928 Washington Arias MD IMG BI PROCEDURES from Last 3 Months or Most Recently Relevant to Health Maintenance Advance Directives * Full Code - Confirmed (Latest Code Status on File) Date Activated Date Inactivated Comments 02/29/2024 2:18 AM 03/05/2024 5:03 PM This code status was ascertained in the following way: Code status discussion: discussion with patient To update the patient's code status, place a code status order. Do not modify or discontinue any currently active code status orders. * Full Code - Default Date Activated Date Inactivated Comments 01/30/2024 10:27 AM 01/30/2024 6:10 PM This is o rder is used when code status has not been discussed with the patient, or code status is otherwise unknown/unconfirmed To update the patient's code status, place a code status order. Do not modify or discontinue any currently active code status orders. Care Teams Customer Service Voice Relationship Specialty Start Date End Date Washington Arias MD [address] [place] [address] [phone] PCP - General Internal Medicine 01/27/24
--- OUTSIDE RECORDS SUMMARY | 2024-04-16 13:41 | XMS_ITS ---
Author Organization [facility] Address Unknown Medications Medication Dose Frequency Directions Start Date End Jonathan e Metoprolol Succinate ER Oral Tablet Extended Release 24 Hour 100 MG 1 {tbl} 24 h Give 1 tablet by deon th one time a day for blood pressure do not crush or chew 03/06/2024 04/04/2024 Calcium 600+D Oral Tablet 600-5 MG-MCG 1 {tbl} 24 h Give 1 tablet by deon th one time a day for Supplement 03/06/2024 04/04/2024 Melatonin Oral Tablet 3 MG 2 {tbl} Give 2 tablet by deon th every 24 hours as needed for at bed time for sleep 03/05/2024 04/04/2024 AmLODIPine Besylate Tablet 10 MG 1 {tbl} 24 h Give 1 tablet by deon th one time a day for blood presssure 03/06/2024 04/04/2024 Fleet Enema Rectal Enema 7-19 GM/118ML 1 {Applicator } Insert 1 applicator rectally as needed for Constipation Give 1 applicator full (118 ml)if no results from Bisacodyl suppository. 03/06/2024 04/04/2024 Dulcolax Suppository 10 MG 1 Insert 1 suppository rectally as needed for Constipation every 3 days if No Bowel Movement and Milk of Magnesia ineffective 03/06/2024 04/04/2024 Milk of Magnesia Suspension 400 MG/5ML 30 mL Give 30 ml by mouth as needed for Constipation daily 03/06/2024 04/04/2024 Acetaminophen Oral Tablet 325 MG 2 {tbl} Give 2 tablet by deon th every 6 hours as needed for Pain Total Dose 650mg DO NOT EXCEED 3 grams in 24 hours 03/07/2024 04/04/2024 Acetaminophen Oral Tablet 325 MG 2 {tbl} Give 2 tablet by deon th every 6 hours as needed for Temperature greater than 100.F Total Dose 650mg DO NOT EXCEED 3 grams in 24 hours 03/07/2024 04/04/2024 Fleet Enema Rectal Enema 7-19 GM/118ML 1 {Applicator } Insert 1 applicator rectally as needed for Constipation Give 1 applicator full (118 ml)if no results from Bisacodyl suppository. 03/07/2024 04/04/2024 Ferrous Sulfate Tablet 325 (65 Fe) MG 1 {tbl} 12 h Give 1 tablet by deon two times a day for supplementation 03/27/2024 04/03/2024 Ascorbic Acid Tablet 500 MG 1 {tbl} 24 h Give 1 tablet by deon th one time a day for anemia 03/27/2024 04/04/2024 Protonix Tablet Delayed Release 40 MG 1 {tbl} 24 h Give 1 tablet by deon one time a day for ? GI bleed *DO NOT CRUSH* 03/27/2024 04/04/2024 Zofran Oral Tablet 4 MG 1 {tbl} Give 1 tablet by deon every 8 hours as needed for Nausea/Vomiting for 2 Days 03/29/2024 03/31/2024 Melatonin Oral Tablet 3 MG 1 {tbl} Give 1 tablet by deon as needed for Insomnia 03/29/2024 04/02/2024 Ferrous Sulfate Tablet 325 (65 Fe) MG 1 {tbl} 12 h Give 1 tablet by deon two times a day for supplementation 04/03/2024 04/04/2024 Medications Administered Medication Dose Frequency Status Start Date End Date Metoprolol Succinate ER Oral Tablet Extended Release 24 Hour 100 MG 1 {tbl} 24 h 04/03/2024 Calcium 600+D Oral Tablet 60 0-5 MG-MCG 1 {tbl} 24 h 04/03/2024 Melatonin Oral Tablet 3 MG 2 {tbl} AmLODIPine Besylate Tablet 10 MG 1 {tbl} 24 h 04/03/2024 Fleet Enema Rectal Enema 7-1 9 GM/118ML 1 {Applicator} 03/10/2024 Dulcolax Suppository 10 MG 1 10/2024 Milk of Magnesia Suspension 400 MG/5ML 30 mL 03/29/2024 Acetaminophen Oral Tablet 325 MG 2 {tbl} 03/09/2024 Acetaminophen Oral Tablet 325 MG 2 {tbl} 03/09/2024 Fleet Enema Rectal Enema 7-1 9 GM/118ML 1 {Applicator} 03/07/2024 Ferrous Sulfate Tablet 325 ( 65 Fe) MG 1 {tbl} 12 h 04/02/2024 Ascorbic Acid Tablet 500 MG 1 {tbl} 24 h Protonix Tablet Delayed Rele ase 40 MG 1 {tbl} 24 h 04/03/2024 Zofran Oral Tablet 4 MG 1 {tbl} 2024 Melatonin Oral Tablet 3 MG 1 {tbl} 11/2024 Ferrous Sulfate Tablet 325 ( 65 Fe) MG 1 {tbl} 12 h 04/03/2024 Problems Problem Status Start Date End Date MUSCLE WASTING AND ATROPHY, NOT ELSEWHERE CLASSIFIED, MULTIPLE SITES (Primary) (M62.59 - ICD-10-CM) ACTIVE 03/05/2024 ACUTE CYSTITIS WITHOUT HEMATURIA (N30.00 - ICD-10-CM) ACTIVE 03/05/2024 CALCULUS OF KIDNEY (N20.0 - ICD-10-CM) ACTIVE CAROTID ARTERY SYNDROME (HEMISPHERIC) (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 - ICD-10- CM) ACTIVE 03/05/2024 PREDIABETES (R73.03 - ICD-10-CM) ACTIVE 03/05/20 UNSPECIFIED PROTEIN-CALORIE MALNUTRITION (E46 - ICD-10 -CM) ACTIVE 03/05/2024 ESSENTIAL (PRIMARY) HYPERTENSION (I10 - ICD-10-CM) ACT DM 03/05/2024 PRIMARY OSTEOARTHRITIS, UNSP ECIFIED SITE (M19.91 - ICD-10-CM) ACTIVE 03/05/2024 DEPRESSION, UNSPECIFIED (F32.A - ICD-10-CM) ACTIVE 03/05/2024 MORBID (SEVERE) OBESITY DUE TO EXCESS CALORIES (E66.01 - ICD-10-CM) ACTIVE 03/05/2024 PAIN IN RIGHT WRIST (M25.531 - ICD-10-CM) ACTIVE 03/05/2024 PAIN IN LEFT WRIST (M25.532 - ICD-10-CM) ACTIVE 03/05/2024 Encounters Encounter Performer Performer Role Encounter Diagnoses Location Date Discharge - Discharged / Transferred to home under care of organized home health service organization - [facility] 03:10 pm EST - 08:30 am EST Immunizations Vaccine Date (Shingles) Vaccine 05/05/2019 12:00 am EST (Respiratory Syncytial Virus) Arexvy Adj uvant Vaccine 11/19/2023 12:00 am EDT (Influenza) FLUAD - Adjuvanted - High Do se - 65+ 11/19/2023 12:00 am EDT Social History Vital Signs Vital Sign Reading Time Taken respirations 18 /min 04/03/2024 07:48 am EST respirations 18 /min 04/01/2024 05:12 pm EST respirations 18 /min 03/31/2024 08:39 pm EST respirations 17 /min 03/30/2024 09:02 pm EST painLevel 0 {score} 04/03/2024 07:47 am EST painLevel 0 {score} 04/02/2024 11:44 pm EST painLevel 0 {score} 04/02/2024 08:33 am EST painLevel 0 {score} 04/02/2024 12:59 am EST painLevel 0 {score} 04/01/2024 05:12 pm EST painLevel 0 {score} 04/01/2024 08:41 am EST painLevel 0 {score} 04/01/2024 12:26 am EST painLevel 0 {score} 03/31/2024 08:31 pm EST painLevel 0 {score} 03/31/2024 08:38 am EST painLevel 0 {score} 03/30/2024 11:38 pm EST heartrate 82 /min 04/03/2024 07:47 am EST heartrate 87 /min 04/01/2024 05:12 pm EST heartrate 93 /min 03/31/2024 08:39 pm EST heartrate 66 /min 03/30/2024 09:02 pm EST temperature 98 [degF] 04/03/2024 07:47 am EST temperature 97.8 [degF] 04/01/2024 05:12 pm EST temperature 97.8 [degF] 03/31/2024 08:39 pm EST temperature 98.3 [degF] 03/30/2024 09:02 pm EST systolicValue 120 mm[Hg] 04/03/2024 07:47 am EST diastolicValue 82 mm[Hg] 04/03/2024 07:47 am EST systolicValue 125 mm[Hg] 04/01/2024 05:12 pm EST diastolicValue 74 mm[Hg] 04/01/2024 05:12 pm EST systolicValue 138 mm[Hg] 03/31/2024 08:39 pm EST diastolicValue 66 mm[Hg] 03/31/2024 08:39 pm EST systolicValue 125 mm[Hg] 03/30/2024 09:02 pm EST diastolicValue 77 mm[Hg] 03/30/2024 09:02 pm EST oxygenSaturation 100 % 04/01/2024 05:1 2 pm EST oxygenSaturation 96 % 03/31/2024 08:3 9 pm EST oxygenSaturation 96 % 03/30/2024 09:0 2 pm EST oxygenSaturation 96 % 03/28/2024 08:4 9 pm EST
--- OUTSIDE RECORDS SUMMARY | 2024-04-16 13:41 | XMS_ITS | Encounter Summary ---
Author Organization [facility] Address [address] [place] [address] Care Team Providers Care Tonger Name Role Phone Washington Arias MD Primary Care Provider [phone] Reason for Visit * Episode Based Medications (Routine) - Authorized Specialty Diagnoses / Procedures Referred By Contkanu t Referred To Contact Diagnoses Acute blood loss anemia Jermaine Gold MD [address] [place] [address] [facility] [address] [place] [phone] Referral ID Status Reason Start Date Expiration Date V isits Requested Visits Authorized [id number] Authorized 03/26/2024 03/26/2025 1 1 Encounter Details Date Type Department Care Team (Latest Contact Info) Description 03/27/2024 9:30 AM EST - 03/29/2024 6:32 AM EST Hospital Encounter [facility] [address] [place] [phone] Jermaine Gold MD [address] [place] [address] Acute blood loss anemia (Primary Dx) Discharge Disposition: Home or Self Care Social History Tobacco Use Types Packs/Day Years Used Date Smoking Tobacco: Never Passive Smoke Exposure: Never Smokeless Tobacco: Never Alcohol Use Standard Drinks/Week Comments Not Currently 0 (1 standard drink = 0.6 oz pur e alcohol) [facility] Housing Instability Answer Date Recorde d Are you worried that in the next 2 months you may not have stable housing? No 02/29/2024 Food Access & Nutrition Answer Date Rec orded Do you have access to a vari ety of food including fruits and vegetables? No 02/29/2024 Access to Healthcare Answer Date Record ed Within the last 3 months, ho w many times did you visit the emergency [...] for your loved ones. For example, child advocate or elderly care for an older adult? [...] on file documented as of this encounter Last Filed Vital Signs Vital Sign Reading Time Taken Comments Blood Pressure 121/58 03/27/2024 5:30 PM EST Pulse 92 03/27/2024 5:30 PM EST Temperature 36.9 ??C (98.5 ??F) 03/27/2024 5:30 PM ES T Respiratory Rate 18 03/27/2024 5:30 PM EST Oxygen Saturation 99% 03/27/2024 11:54 AM EST Inhaled Oxygen Concentration - - Weight - - Height - - Body Mass Index - - documented in this encounter Functional Status Functional Status Response Date of Assess ment Are you deaf or do you have serious difficulty hearing? No 02/28/2024 Are you blind or do you have serious difficulty seeing, even when wearing glasses? No 02/28/2024 Do you have serious difficul ty walking or climbing stairs? Yes-uses walker 02/28/2024 Do you have serious difficul ty dressing or bathing? No 02/28/2024 Because of a physical, menta l, or emotional condition, do you have serious difficulty doing errands alone such as visiting the doctor? No 02/28/2024 Cognitive Status Response Date of Assessm ent Because of a physical, menta l, or emotional condition, do you have serious difficulty concentrating, remembering, or making decisions? (5 years old or older) No 02/28/2024 documented as of this encounter Medications at Time of Discharge Medication Sig Dispensed Refills Start Date End Date estradioL (ESTRACE) 0.01 % (0.1 mg/gram) vaginal cream Please use 0.5g (a pea-sized amount) on your finger and place inside the vagina for 2 weeks at night, and then decrease to twice a week at night (Mondays and ) 11/04/2023 11/28/2024 amLODIPine (NORVASC) 10 mg tablet Take 1 tablet (10 mg total) by mouth 1 (one) time each day. 03/05/2024 calcium carbonate/vitamin D3 (CALCIUM 600 WITH VITAMIN D3 ORAL) Take by mouth. HYDROCHLOROTHIAZIDE ORAL Take 12.5 mg by mouth. metoprolol succinate (TOPROL-XL) 100 mg 24 hr tablet Take 1 tablet (100 mg total) by mouth 1 (one) time each day. Do not crush or chew. 30 each 11 03/05/2024 03/05/2025 melatonin 3 mg tablet Take 2 tablets (6 mg total) by mouth at bedtime as needed for sleep. 03/05/2024 04/04/2024 documented as of this encounter Discharge Disposition Disposition Code Departure Means Destination Comment s Home or Self Care documented in this encounter Progress Notes * Stephanie Ernst RN - 03/27/2024 9:30 AM EST [id number] vital check completed. Vital signs stable. Patient incontinent of urine. Patient transferred to wheelchair with two assist and brought to bathroom. Patient's old brief removed, patient's pants and shirt changed into hospital gown and hospital pants due to being soiled. Patient had small BM and assisted to clean up and new brief provided. Patient brought back to recliner and provided juice. Patient resting comfortably in chair with call malone in reach. 1630-Report given to MULU Valencia who assumed care of patient at this time. * Annie Coats RN - 03/27/2024 9:30 AM EST 1735 Patient tolerated blood transfusion well, without adverse reaction/complaint. Vitals are stable. Patient has no questions/concerns at this time. IV removed, intact. Patient discharged stable, via transportation ambulance. * Josiane Li RN - 03/27/2024 9:30 AM EST Pt arrives today via ambulance/wheelchiar from [facility]. Pt reports feeling well overall. I just want to get better Pt arrives for 2 units PRBC per order received from Dr Gold. PIV inserted RIGHT fa. Pt tolerated well. Stat Type and Screen drawn and sent. Medications, allergies, and assessment reviewed. Type and screen resulted. Pt positive for antibodies. Awaiting crossmatch. Due to delay pt only able to receive 1 unit PRBC today ... Dr Gold made aware. New order received pt only needs 1 unit in total due to improvement in hgb and ride issues. MD and pt in agreement. Report given to mulu richard documented in this encounter Plan of Treatment Not on file documented as of this encounter Procedures Procedure Name Priority Date/Time Associated Diagnosis Comments PREPARE RBC Routine 03/27/2024 12:48 PM EST Acute blood loss anemia FYA ANTIGEN TYPE Routine 03/27/2024 12:1 4 PM EST Acute blood loss anemia E ANTIGEN TYPE Routine 03/27/2024 12:14 PM EST Acute blood loss anemia ANTIBODY IDENTIFICATION Routine 03/27/19 25 12:14 PM EST Acute blood loss anemia TYPE AND SCREEN STAT 03/27/2024 12:14 PM EST Acute blood loss anemia documented in this encounter Results * Transfuse RBC (03/27/2024 5:36 PM EST) Jermaine Gold MD BLOOD TRANSFUSION OR DERABLES * Prepare RBC: 1 Units (03/27/2024 12:48 PM EST) Product Code [id number] 03/27/2024 3:32 PM EST [facility] Unit Number [id number] 03/27/19 3:32 PM EST [facility] Crossmatch Compatible 03/27/2024 3:19 PM EST [facility] Dispense Status Transfused 03/27/2024 3:32 PM EST [facility] Unit ABO Rh ONEG 03/27/2024 3:32 PM EST [facility] Unit Expiration Date Time [id number] 03/27/2024 3:32 PM EST [facility] Unit Blood Type 9500 03/27/2024 3:32 PM EST [facility] Venous blood specimen / Unknown 03/27/2024 12:48 PM EST 03/27/2024 12:29 PM EST Jermaine Gold MD BLOOD BANK PRODUCT O RDERABLES Performing Organization Address City/[facility]/ZIP Co de Phone Number [facility] [address] [place] [address], [place] [phone] [facility] * E antigen type (03/27/2024 12:14 PM EST) E Antigen Positive 03/28/2024 11:38 AM EST [facility] Blood Venous blood specimen / Unknown Venipuncture / Unknown 03/27/2024 12:14 PM EST 03/27/2024 12:29 PM EST Jermaine Gold MD LAB BLOOD BANK TEST ORDERABLES Performing Organization Address City/[facility]/ZIP Co de Phone Number [facility] [address] [place] [address], [place] [phone] * Fya antigen type (03/27/2024 12:14 PM EST) Fya Antigen Negative 03/27/2024 3:36 PM EST [facility] Blood Venous blood specimen / Unknown Venipuncture / Unknown 03/27/2024 12:14 PM EST 03/27/2024 12:29 PM EST Jermaine Gold MD LAB BLOOD BANK TEST ORDERABLES Performing Organization Address City/[facility]/ZIP Co de Phone Number [facility] [address] [place] [address], [place] [phone] * Antibody identification (03/27/2024 12:14 PM EST) Antibody Identification Fya Antibody (Moy a) 03/27/2024 2:55 PM EST [facility] Blood Venous blood specimen / Unknown Venipuncture / Unknown 03/27/2024 12:14 PM EST 03/27/2024 12:29 PM EST Jermaine Gold MD LAB BLOOD BANK TEST ORDERABLES Performing Organization Address [facility] Co de Phone Number [facility] [address] [place] [address], * Type and screen (03/27/2024 12:14 PM EST) ABO Group O 03/27/2024 2:54 PM EST [facility] Rh Type Positive 03/27/2024 2:54 PM [facility] Antibody Screen Positive 03/27/2024 2:54 PM [facility] Blood Venous blood specimen / Unknown Venipuncture / Unknown 03/27/2024 12:14 PM EST 03/27/2024 12:29 PM EST Jermaine Gold MD LAB BLOOD BANK TEST ORDERABLES Performing Organization Address City/[facility]/ZIP Co de Phone Number [facility] [address] [place] [address], [place] [phone] documented in this encounter Visit Diagnoses Diagnosis Acute blood loss anemia- Primary Acute posthemorrhagic anemia documented in this encounter Historical Medications * This list may reflect changes made after this encounter. Medication Sig Dispensed Refills Start Date End Date estradioL (ESTRACE) 0.01 % (0.1 mg/gram) vaginal cream Please use 0.5g (a pea-sized amount) on your finger and place inside the vagina for 2 weeks at night, and then decrease to twice a week at night (Mondays and ) 11/04/2023 11/28/2024 HYDROCHLOROTHIAZIDE ORAL Take 12.5 mg by mouth. added in this encounter Orders Nursing Count Last Ordered Date First Orde red Date ONC PROVIDER COMMUNICATION 5 1 03/27/2024 documented in this encounter Care Teams Tonger Relationship Specialty Start Date End Date Washington Arias MD [address] [place] [phone] PCP - General Internal Medicine 01/27/24 documented as of this encounter
--- OUTSIDE RECORDS SUMMARY | 2024-04-16 13:41 | XMS_ITS | Clinical Summary ---
Author Organization Unknown Care Team Providers Care Pamphlet Distributor Name Role Phone VERONIKA BREAUX, NAM Unavailable Unavailable SHYANNE OT, LUZ Unavailable Unavailrafael VARGAS RN, BELINDA Unavailable Unavailable SHEILA PT, UVALDO Unavailable Unavailable Payers Payer Name Policy Type Policy Number Effective Date Expira tion Date MEDICARE - NGS [place] - [place] [id number] Problems Condition Name Condition Details Condition Category Status Onset Date Resolution Date Last Treatment Date Treating Clinician Comments ESSENTIAL (PRIMARY) HYPERTENSION Active 04-04 00:00: 00 GASTRO-ESOPH AGEAL REFLUX DISEASE WITHOUT ESOPHAGITIS Active 04-04 00:00: 00 CALCULUS OF KIDNEY Active 04-04 00:00: 00 TYPE 2 DIABETES MELLITUS WITHOUT COMPLICATION S Active 04-04 00:00: 00 VITAMIN D DEFICIENCY, UNSPECIFIED Active 04-04 00:00: 00 LOW BACK PAIN, UNSPECIFIED Active 04-04 00:00: 00 OVERACTIVE BLADDER Active 04-04 00:00: 00 ANEMIA, UNSPECIFIED Active 04-04 00:00: 00 INSOMNIA, UNSPECIFIED Active 04-04 00:00: 00 Allergies, Adverse Reactions, Alerts Allergy Name Allergy Type Status Severity Reaction(s) Onset Date Inactive Date Treating Clinician Comments OXYCODONE Propensity to adverse reactions Active 04-04 17:37: 13 HYDROCODONE Propensity to adverse reactions Active 04-04 17:37: 22 Medications Ordered Medication Name Filled Medication Name Start Date Stop Date Current Medication? Ordering Clinician Indication Dosage Frequency Signature (SIG) Comments Components amlodipine 10 mg tablet 04-04 00:00: 00 Yes [id number] 1 tablet DAILY 1 tablet DAILY (route: oral) Med Classific ation: Cardiovas cular Therapy Agents Calcium 600 + D(3) 600 mg-10 mcg (400 unit) tablet 04-04 00:00: 00 Yes [id number] 1 tablet 2 TIMES DAILY 1 tablet 2 TIMES DAILY (route: oral) Med Classific ation: Electroly te Balance-N utritiona l Products metoprolol succinate ER 100 mg tablet,exte nded release 24 hr 04-04 00:00: 00 Yes [id number] 1 tablet DAILY 1 tablet DAILY (route: oral) Med Classific ation: Cardiovas cular Therapy Agents Protonix 40 mg tablet,leeann yed release 04-04 00:00: 00 Yes [id number] 1 tablet DAILY 1 tablet DAILY (route: oral) Med Classific ation: Gastroint estinal Therapy Agents Vitamin C 500 mg tablet 04-04 00:00: 00 Yes [id number] 1 tablet DAILY 1 tablet DAILY (route: oral) Med Classific ation: Electroly te Balance-N utritiona l Products Immunizations Ordered Immunization Name Filled Immunization Name Date Status Comments Refusal Reason INFLUENZA, TIV (INACTIVATED) 2023-12-21 00:00:00 Vital Signs Vital Name Observation Time Observation Value Commen ts Temperature 2024-04-10 09:53:00.000 98.4 [degF] Temperature 2024-04-04 17:40:00.000 98 [degF] BMI (%) 2024-04-04 17:40:00.000 34 kg/m2 Height 2024-04-04 17:40:00.000 64 [in_us] Pulse 2024-04-10 11:12:00.000 84 /min Pulse 2024-04-10 09:53:00.000 89 /min Pulse 2024-04-04 17:40:00.000 84 /min O2 Saturation (%) 2024-04-10 11:12:00.000 100 % O2 Saturation (%) 2024-04-10 09:53:00.000 98 % O2 Saturation (%) 2024-04-04 17:40:00.000 97 % Respirations 2024-04-10 09:53:00.000 18 /min Respirations 2024-04-04 17:40:00.000 18 /min Weight (lbs) 2024-04-04 17:40:00.000 200 [lb_av] Systolic Blood Pressure 2024-04-10 11:17:00.000 132 mm [Hg] Systolic Blood Pressure 2024-04-10 09:53:00.000 108 mm [Hg] Systolic Blood Pressure 2024-04-04 17:40:00.000 148 mm [Hg] Diastolic Blood Pressure 2024-04-10 11:17:00.000 62 mm [Hg] Diastolic Blood Pressure 2024-04-10 09:53:00.000 50 mm [Hg] Diastolic Blood Pressure 2024-04-04 17:40:00.000 88 mm [Hg] Plan of Treatment Planned Activity Planned Date Details Comments Future Scheduled Test SKILLED NU RSE TO EVALUATE PATIENT, IDENTIFY PRIMARY AND CO-MORBID CONDITIONS CODED PER CODING GUIDELINES, AND DEVELOP PATIENT SPECIFIC PLAN OF CARE THAT INCLUDES PATIENT GOAL FOR HOME HEALTH. [code = SKILLED NURSE TO EVALUATE PATIENT, IDENTIFY PRIMARY AND CO-MORBID CONDITIONS CODED PER CODING GUIDELINES, AND DEVELOP PATIENT SPECIFIC PLAN OF CARE THAT INCLUDES PATIENT GOAL FOR HOME HEALTH.] Future Scheduled Test SKILLED NU RSE TO REVIEW PATIENT MEDICATIONS. INSTRUCT PATIENT/CAREGIVER ON MONITORING OF EFFECTIVENESS, ADVERSE DRUG REACTIONS, SIDE EFFECTS OF ALL MEDICATIONS (PRESCRIPTION/-OTC), AND HOW AND WHEN TO REPORT PROBLEMS. [code = SKILLED NURSE TO REVIEW PATIENT MEDICATIONS. INSTRUCT PATIENT/CAREGIVER ON MONITORING OF EFFECTIVENESS, ADVERSE DRUG REACTIONS, SIDE EFFECTS OF ALL MEDICATIONS (PRESCRIPTION/-OTC), AND HOW AND WHEN TO REPORT PROBLEMS.] Future Scheduled Test SKILLED NU RSE FOR O/A, TEACHING AND MANAGEMENT OF RENAL STONES FOR EARLY IDENTIFICATION OF EXACERBATION OF DISEASE PROCESS [code = SKILLED NURSE FOR O/A, TEACHING AND MANAGEMENT OF RENAL STONES FOR EARLY IDENTIFICATION OF EXACERBATION OF DISEASE PROCESS] Future Scheduled Test OCCUPATION AL THERAPIST TO EVALUATE PATIENT FOR IADLS [code = OCCUPATIONAL THERAPIST TO EVALUATE PATIENT FOR IADLS] Future Scheduled Test SKILLED NU RSE FOR O/A AND SKILLED TEACHING RELATED TO SIGNS AND SYMPTOMS OF INFECTION AND INFECTION CONTROL MEASURES. [code = SKILLED NURSE FOR O/A AND SKILLED TEACHING RELATED TO SIGNS AND SYMPTOMS OF INFECTION AND INFECTION CONTROL MEASURES.] Future Scheduled Test SKILLED NU RSE FOR O/A OF SELF-CARE DEFICITS AND TO PROVIDE TEACHING RELATED TO SAFE PROVISION OF ADLS. [code = SKILLED NURSE FOR O/A OF SELF-CARE DEFICITS AND TO PROVIDE TEACHING RELATED TO SAFE PROVISION OF ADLS.] Future Scheduled Test PHYSICAL T HERAPIST TO EVALUATE PATIENT FOR GAIT STABILITY AND STRENGTH [code = PHYSICAL THERAPIST TO EVALUATE PATIENT FOR GAIT STABILITY AND STRENGTH ] Future Scheduled Test SKILLED NU RSE TO PROVIDE TEACHING ON SIGNS AND SYMPTOMS AND MANAGEMENT OF HYPERTENSION. [code = SKILLED NURSE TO PROVIDE TEACHING ON SIGNS AND SYMPTOMS AND MANAGEMENT OF HYPERTENSION.] Future Scheduled Test SKILLED NU RSE FOR O/A AND SKILLED TEACHING RELATED TO SIGNS AND SYMPTOMS AND MANAGEMENT OF ANEMIA. [code = SKILLED NURSE FOR O/A AND SKILLED TEACHING RELATED TO SIGNS AND SYMPTOMS AND MANAGEMENT OF ANEMIA.] Future Scheduled Test SKILLED NU RSE FOR O/A AND SKILLED TEACHING RELATED TO SIGNS AND SYMPTOMS AND MANAGEMENT OF OA. [code = SKILLED NURSE FOR O/A AND SKILLED TEACHING RELATED TO SIGNS AND SYMPTOMS AND MANAGEMENT OF OA.] Future Scheduled Test PATIENT ELIZABETH S A RISK OF HOSPITALIZATION AND ED USE. SKILLED NURSE TO ESTABLISH SUPPORT MEASURES TO MINIMIZE RISK OF HOSPITALIZATION AND ED USE, AND INSTRUCT PATIENT/CAREGIVER ON METHODS TO REDUCE AVOIDABLE HOSPITALIZATION AND ED USE. [code = PATIENT HAS A RISK OF HOSPITALIZATION AND ED USE. SKILLED NURSE TO ESTABLISH SUPPORT MEASURES TO MINIMIZE RISK OF HOSPITALIZATION AND ED USE, AND INSTRUCT PATIENT/CAREGIVER ON METHODS TO REDUCE AVOIDABLE HOSPITALIZATION AND ED USE.] Future Scheduled Test SKILLED NU RSE TO PROVIDE INSTRUCTION TO PATIENT/CAREGIVER RELATED TO DISCHARGE PLANNING. [code = SKILLED NURSE TO PROVIDE INSTRUCTION TO PATIENT/CAREGIVER RELATED TO DISCHARGE PLANNING.] Future Scheduled Test SKILLED NU RSE TO PERFORM ENVIRONMENTAL SAFETY RISK ASSESSMENT AND FALL RISK ASSESSMENT AND PROVIDE INSTRUCTION TO IMPLEMENT ENVIRONMENTAL SAFETY AND FALL PREVENTION STRATEGIES THROUGHOUT THE CERTIFICATION PERIOD. SKILLED NURSE WILL MAINTAIN SITUATIONAL AWARENESS AND WILL NOTIFY CLINICAL CHARTER BUS DRIVER AND PHYSICIAN/PROVIDER WITH ANY CHANGE IN CONDITION. [code = SKILLED NURSE TO PERFORM ENVIRONMENTAL SAFETY RISK ASSESSMENT AND FALL RISK ASSESSMENT AND PROVIDE INSTRUCTION TO IMPLEMENT ENVIRONMENTAL SAFETY AND FALL PREVENTION STRATEGIES THROUGHOUT THE CERTIFICATION PERIOD. SKILLED NURSE WILL MAINTAIN SITUATIONAL AWARENESS AND WILL NOTIFY CLINICAL CHARTER BUS DRIVER AND PHYSICIAN/PROVIDER WITH ANY CHANGE IN CONDITION.] Future Scheduled Test SKILLED NU RSE FOR OBSERVATION AND ASSESSMENT OF PATIENTS PAIN LEVEL AND EFFECTIVENESS OF PAIN MANAGEMENT REGIMEN. SKILLED NURSE TO INSTRUCT PATIENT/CAREGIVER REGARDING PHARMACOLOGIC AND NON-PHARMACOLOGIC PAIN CONTROL MEASURES. SKILLED NURSE TO REPORT TO PHYSICIAN IF PAIN IS UNCONTROLLED WITH CURRENT PAIN MANAGEMENT REGIMEN. [code = SKILLED NURSE FOR OBSERVATION AND ASSESSMENT OF PATIENTS PAIN LEVEL AND EFFECTIVENESS OF PAIN MANAGEMENT REGIMEN. SKILLED NURSE TO INSTRUCT PATIENT/CAREGIVER REGARDING PHARMACOLOGIC AND NON-PHARMACOLOGIC PAIN CONTROL MEASURES. SKILLED NURSE TO REPORT TO PHYSICIAN IF PAIN IS UNCONTROLLED WITH CURRENT PAIN MANAGEMENT REGIMEN.] Future Scheduled Test SKILLED NU RSE TO ASSESS PATIENT'S SKIN INTEGRITY AND INSTRUCT PATIENT/CAREGIVER ON MEASURES TO PREVENT PRESSURE ULCERS. [code = SKILLED NURSE TO ASSESS PATIENT'S SKIN INTEGRITY AND INSTRUCT PATIENT/CAREGIVER ON MEASURES TO PREVENT PRESSURE ULCERS.] Future Scheduled Test OCCUPATION AL THERAPIST TO EVALUATE PATIENT SECONDARY TO FUNCTIONAL DEFICITS/SAFETY CONCERNS IDENTIFIED DURING EVALUATION OCCUPATIONAL THERAPY TO ESTABLISH /UPGRADE/DOWNGRADE THERAPEUTIC EXERCISE PROGRAM AND INSTRUCT PATIENT/CAREGIVER ON EXERCISE PRECAUTIONS WITH WRITTEN HOME PROGRAM. MAY INCLUDE PROM, AAROM, AROM, RROM APPROPRIATE TO IMPROVE FUNCTIONAL STRENGTH AND/OR RANGE OF MOTION. OCCUPATIONAL THERAPY TO INSTRUCT PATIENT/CAREGIVER ON SAFE TRANSFER TECHNIQUES USING PROPER BODY MECHANICS AND EQUIPMENT TO ENHANCE PARTICIPATION IN ADLS. OCCUPATIONAL THERAPY TO ASSESS AND RECOMMEND HOME SAFETY ADAPTATIONS AND EDUCATE PATIENT /CAREGIVER ON FALL PREVENTION STRATEGIES TO ENHANCE PARTICIPATION IN ADLS. OCCUPATIONAL THERAPY TO PROVIDE PATIENT/CAREGIVER WITH INSTRUCTIONS AND RECOMMENDATIONS TO IMPROVE ADLS INCLUDING WHILE USING APPROPRIATE ADAPTIVE DEVICES RECOMMENDED. SUMMARY OF THERAPY EVAL/ASSESSMENT FINDINGS AND REASON(S) SKILLS OF A THERAPIST ARE INDICATED: OT EVALUATION (04/10/24) PATIENT IS A 73-YEAR-OLD FEMALE REFERRED TO OCCUPATIONAL THERAPY SERVICES AFTER A RECENT PROLONGED HOSPITALIZATION AND REHAB STAY DUE TO LEFT RENAL STONE. SHE HAD A CYSTOSCOPY AND STENT PLACED, HOWEVER UNSUCCESSFUL IN REMOVING ALL THE STONE. SHE HAD STENT REMOVED AT UROLOGY OFFICE FOLLOW UP LAST WEEK. PAST MEDICAL HISTORY SIGNIFICANT FOR: OBSTRUCTIVE KIDNEY STONES, HTN, GERD, ANEMIA, PREDIABETES PRIOR LEVEL OF FUNCTION: PATIENT LIVES ALONE ON SECOND FLOOR CONDO REQUIRING 14 STAIRS TO GET IN AND OUT WITH. SHE WAS INDEPENDENT WITH ADLS AND IADLS AND NO DEVICES USED PRIOR TO. SHE WAS DRIVING WELL. CURRENT LEVEL OF FUNCTION: PATIENT SITTING IN CHAIR UPON THERAPIST ARRIVAL. SHE IS AMBULATING WITH USE OF ROLLING WALKER THROUGHOUT APARTMENT. SHE WAS ABLE TO DEMONSTRATE [id number] TRANSFER SUPERVISION WELL TOILET TRANSFER WITH SUPERVISION. SHE IS UNABLE TO STEP IN AND OUT OF TUB AT THIS TIME WITHOUT BARS. SHE IS HAVING INCONSISTENT PAIN DUE TO CONSTIPATION AT THIS TIME THAT COMES AND GOES. SHE IS IN THE PROCESS OF TRYING TO RECTIFY HER BOWEL SITUATION WHICH WILL THEN EASE AND ALLOW HER TO PARTICIPATE AND MORE ACTIVITY. SHE IS ABLE TO SPONGE BATHE AND DRESS HERSELF WITHOUT DIFFICULTY SEATED. SHE DEMONSTRATED ABILITY TO DON AND DOFF SOCKS AND SHOES TODAY. SHE IS HAVING DIFFICULTY STANDING LONG PERIODS OF TIME THEREFORE IMPACTING HER ABILITY TO PREPARE MEALS. AT THIS TIME HAS FRIENDS HELP WITH LAUNDRY BECAUSE IT IS OUTSIDE OF THE HOME. SHE DOES DEMONSTRATE WITHIN FUNCTIONAL LIMITS RANGE OF MOTION BOTH UPPER EXTREMITIES WITH FAIR STRENGTH THROUGHOUT BILATERALLY. HER ENDURANCE FROM BEING HOSPITALIZED OVER THE LAST 2 MONTHS IS NOT FOR BASELINE AND WOULD BENEFIT FROM ENERGY CONSERVATION TRAINING, STRENGTH TRAINING, AND OBTAINING ADAPTIVE EQUIPMENT TO EASE ADL STRAIN. PATIENT ONLY OFFERS COMPLAINTS OF PAIN FROM CONSTIPATION OTHERWISE WITHOUT PAIN. ASSESSMENT /POC: OCCUPATIONAL THERAPY EVALUATION COMPLETED WITH RECOMMENDATION FOR SKILLED OT SERVICES ONE TIME A WEEK X6 TO MEET GOALS. PATIENT IN AGREEMENT WITH PLAN TO ADDRESS ENDURANCE FOR FUNCTIONAL ACTIVITIES WELL SAFETY WITH TOILET TRANSFERS AND SHOWER LEVEL BATHING. MD NOTIFIED OF OT EVALUATION AND PLAN OF CARE. PATIENT WAS SEEN BY UROLOGY LAST WEEK. NO UPCOMING APPOINTMENTS TO PATIENT'S KNOWLEDGE. [code = OCCUPATIONAL THERAPIST TO EVALUATE PATIENT SECONDARY TO FUNCTIONAL DEFICITS/SAFETY CONCERNS IDENTIFIED DURING EVALUATION OCCUPATIONAL THERAPY TO ESTABLISH /UPGRADE/DOWNGRADE THERAPEUTIC EXERCISE PROGRAM AND INSTRUCT PATIENT/CAREGIVER ON EXERCISE PRECAUTIONS WITH WRITTEN HOME PROGRAM. MAY INCLUDE PROM, AAROM, AROM, RROM APPROPRIATE TO IMPROVE FUNCTIONAL STRENGTH AND/OR RANGE OF MOTION. OCCUPATIONAL THERAPY TO INSTRUCT PATIENT/CAREGIVER ON SAFE TRANSFER TECHNIQUES USING PROPER BODY MECHANICS AND EQUIPMENT TO ENHANCE PARTICIPATION IN ADLS. OCCUPATIONAL THERAPY TO ASSESS AND RECOMMEND HOME SAFETY ADAPTATIONS AND EDUCATE PATIENT /CAREGIVER ON FALL PREVENTION STRATEGIES TO ENHANCE PARTICIPATION IN ADLS. OCCUPATIONAL THERAPY TO PROVIDE PATIENT/CAREGIVER WITH INSTRUCTIONS AND RECOMMENDATIONS TO IMPROVE ADLS INCLUDING WHILE USING APPROPRIATE ADAPTIVE DEVICES RECOMMENDED. SUMMARY OF THERAPY EVAL/ASSESSMENT FINDINGS AND REASON(S) SKILLS OF A THERAPIST ARE INDICATED: OT EVALUATION (04/10/24) PATIENT IS A 73-YEAR-OLD FEMALE REFERRED TO OCCUPATIONAL THERAPY SERVICES AFTER A RECENT PROLONGED HOSPITALIZATION AND REHAB STAY DUE TO LEFT RENAL STONE. SHE HAD A CYSTOSCOPY AND STENT PLACED, HOWEVER UNSUCCESSFUL IN REMOVING ALL THE STONE. SHE HAD STENT REMOVED AT UROLOGY OFFICE FOLLOW UP LAST WEEK. PAST MEDICAL HISTORY SIGNIFICANT FOR: OBSTRUCTIVE KIDNEY STONES, HTN, GERD, ANEMIA, PREDIABETES PRIOR LEVEL OF FUNCTION: PATIENT LIVES ALONE ON SECOND FLOOR CONDO REQUIRING 14 STAIRS TO GET IN AND OUT WITH. SHE WAS INDEPENDENT WITH ADLS AND IADLS AND NO DEVICES USED PRIOR TO. SHE WAS DRIVING WELL. CURRENT LEVEL OF FUNCTION: PATIENT SITTING IN CHAIR UPON THERAPIST ARRIVAL. SHE IS AMBULATING WITH USE OF ROLLING WALKER THROUGHOUT APARTMENT. SHE WAS ABLE TO DEMONSTRATE [id number] TRANSFER SUPERVISION WELL TOILET TRANSFER WITH SUPERVISION. SHE IS UNABLE TO STEP IN AND OUT OF TUB AT THIS TIME WITHOUT BARS. SHE IS HAVING INCONSISTENT PAIN DUE TO CONSTIPATION AT THIS TIME THAT COMES AND GOES. SHE IS IN THE PROCESS OF TRYING TO RECTIFY HER BOWEL SITUATION WHICH WILL THEN EASE AND ALLOW HER TO PARTICIPATE AND MORE ACTIVITY. SHE IS ABLE TO SPONGE BATHE AND DRESS HERSELF WITHOUT DIFFICULTY SEATED. SHE DEMONSTRATED ABILITY TO DON AND DOFF SOCKS AND SHOES TODAY. SHE IS HAVING DIFFICULTY STANDING LONG PERIODS OF TIME THEREFORE IMPACTING HER ABILITY TO PREPARE MEALS. AT THIS TIME HAS FRIENDS HELP WITH LAUNDRY BECAUSE IT IS OUTSIDE OF THE HOME. SHE DOES DEMONSTRATE WITHIN FUNCTIONAL LIMITS RANGE OF MOTION BOTH UPPER EXTREMITIES WITH FAIR STRENGTH THROUGHOUT BILATERALLY. HER ENDURANCE FROM BEING HOSPITALIZED OVER THE LAST 2 MONTHS IS NOT FOR BASELINE AND WOULD BENEFIT FROM ENERGY CONSERVATION TRAINING, STRENGTH TRAINING, AND OBTAINING ADAPTIVE EQUIPMENT TO EASE ADL STRAIN. PATIENT ONLY OFFERS COMPLAINTS OF PAIN FROM CONSTIPATION OTHERWISE WITHOUT PAIN. ASSESSMENT /POC: OCCUPATIONAL THERAPY EVALUATION COMPLETED WITH RECOMMENDATION FOR SKILLED OT SERVICES ONE TIME A WEEK X6 TO MEET GOALS. PATIENT IN AGREEMENT WITH PLAN TO ADDRESS ENDURANCE FOR FUNCTIONAL ACTIVITIES WELL SAFETY WITH TOILET TRANSFERS AND SHOWER LEVEL BATHING. MD NOTIFIED OF OT EVALUATION AND PLAN OF CARE. PATIENT WAS SEEN BY UROLOGY LAST WEEK. NO UPCOMING APPOINTMENTS TO PATIENT'S KNOWLEDGE. ] Goal Patient Goal - G ET STRONGER UP THE STAIRS SAFER Goal Provider Goal - A PLAN OF CARE WILL BE ESTABLISHED THAT MEETS PATIENT'S [facility] NEEDS AND INCLUDES PATIENT GOAL FOR HOME HEALTH. Goal Provider Goal - PATIENT/CAREGIVER WILL VERBALIZE UNDERSTANDING OF EDUCATION PROVIDED ON MEDICATIONS BY THE END OF THE CERTIFICATION PERIOD. Goal Provider Goal - PATIENT/CAREGIVER WILL VERBALIZE UNDERSTANDING OF GENITOURINARY DISEASE PROCESS, AND EXACERBATIONS OF GENITOURINARY DISEASE WILL BE PROMPTLY IDENTIFIED FOR EARLY INTERVENTION THROUGHOUT THE CERTIFICATION PERIOD. Goal Provider Goal - OCCUPATIONAL THERAPY EVALUATION TO BE COMPLETED WITH RECOMMENDATIONS AND WRITTEN PLAN OF TREATMENT ESTABLISHED FOR THE PHYSICIANS SIGNATURE. Goal Provider Goal - PATIENT/CAREGIVER WILL VERBALIZE/DEMONSTRATE UNDERSTANDING OF S/S OF INFECTION AND INFECTION CONTROL MEASURES. SIGNS AND SYMPTOMS OF INFECTION WILL BE IDENTIFIED AND PHYSICIAN NOTIFIED FOR PROMPT INTERVENTION THROUGHOUT THE CERTIFICATION PERIOD. Goal Provider Goal - PATIENT/CAREGIVER WILL VERBALIZE/DEMONSTRATE UNDERSTANDING OF SAFE PROVISION OF ADLS BY THE END OF THE CERTIFICATION PERIOD. Goal Provider Goal - A PHYSICAL THERAPY EVALUATION TO BE COMPLETED WITH RECOMMENDATIONS AND/OR WRITTEN PLAN OF TREATMENT ESTABLISHED FOR PHYSICIANS SIGNATURE. Goal Provider Goal - PATIENT/CAREGIVER WILL VERBALIZE SIGNS AND SYMPTOMS OF HYPERTENSION AND WILL BE ABLE TO DEMONSTRATE ABILITY TO MANAGE EXACERBATION BY END OF THE EPISODE. Goal Provider Goal - PATIENT/CARGIVER WILL VERBALIZE UNDERSTANDING OF ANEMIA INCLUDING SIGNS AND SYMPTOMS, MANAGEMENT OF COMPLICATIONS, AND PRESCRIBED TREATMENT REGIMEN BY END OF EPISODE. Goal Provider Goal - PATIENT/CAREGIVER WILL VERBALIZE UNDERSTANDING OF MUSCULOSKELETAL DISEASE INCLUDING SIGNS AND SYMPTOMS, MANAGEMENT, AND PRESCRIBED TREATMENT REGIMEN BY END OF EPISODE. Goal Provider Goal - PATIENT WILL HAVE SUPPORT MEASURES ESTABLISHED TO PREVENT HOSPITALIZATION AND ED USE AND PATIENT/CAREGIVER WILL VERBALIZE/DEMONSTRATE METHODS TO REDUCE AVOIDABLE HOSPITALIZATION AND ED USE BY END OF EPISODE. Goal Provider Goal - PATIENT/CAREGIVER WILL VERBALIZE UNDERSTANDING OF DISCHARGE PLANNING INSTRUCTIONS BY DATE OF DISCHARGE. Goal Provider Goal - PATIENT/CAREGIVER WILL VERBALIZE/DEMONSTRATE EFFECTIVE ENVIRONMENTAL SAFETY AND FALL PREVENTION STRATEGIES, WILL REMAIN SAFE IN THE COMMUNITY, AND WILL BE FREE OF DANGER TO SELF AND OTHERS THROUGHOUT THE CERTIFICATION PERIOD. Goal Provider Goal - PATIENT/CAREGIVER WILL DEMONSTRATE UNDERSTANDING OF PHARMACOLOGIC AND NONPHARMACOLOGIC PAIN CONTROL MEASURES AND PATIENT WILL HAVE IMPROVEMENT IN PAIN INTERFERING WITH ACTIVITY EVIDENCED BY PAIN CONTROLLED AT LEVEL OF 7 OR LESS BY END OF CERTIFICATION PERIOD. Goal Provider Goal - PATIENT/CAREGIVER WILL VERBALIZE UNDERSTANDING OF PRESSURE ULCER PREVENTION BY END OF THE EPISODE. Goal Provider Goal - OCCUPATIONAL THERAPIST TO EVALUATE PATIENT SECONDARY TO FUNCTIONAL DEFICITS/SAFETY CONCERNS IDENTIFIED DURING EVALUATION. PATIENT/CAREGIVER WILL PERFORM THERAPEUTIC EXERCISE/S AND DEMONSTRATE PARTICIPATION IN A HOME PROGRAM. PATIENT/CAREGIVER WILL DEMONSTRATE SAFE TRANSFERS USING APPROPRIATE ASSISTIVE DEVICE, BODY MECHANICS AND EQUIPMENT. CAREGIVER/PATIENT WILL DEMONSTRATE/VERBALIZE UNDERSTANDING OF RECOMMENDATIONS TO INCREASE SAFETY IN THE HOME AND FALL PREVENTION. PATIENT/CAREGIVER WILL DEMONSTRATE IMPROVED ABILITY TO PERFORM ACTIVITIES OF DAILY LIVING. Progress Notes Progress Notes <paragraph>[Visit Date: 2024 by LUZ KIMBLE OT]:</paragraph><paragraph>OT EVALUATION (04/10/24) PATIENT IS A 73-YEAR-OLD FEMALE REFERRED TO OCCUPATIONAL THERAPY SERVICES AFTER A RECENT PROLONGED HOSPITALIZATION AND REHAB STAY DUE TO LEFT RENAL STONE. SHE HAD A CYSTOSCOPY AND STENT PLACED, HOWEVER UNSUCCESSFUL IN REMOVING ALL THE STONE. SHE HAD STENT REMOVED AT UROLOGY OFFICE FOLLOW UP LAST WEEK. PAST MEDICAL HISTORY SIGNIFICANT FOR: OBSTRUCTIVE KIDNEY STONES, HTN, GERD, ANEMIA, PREDIABETES PRIOR LEVEL OF FUNCTION: PATIENT LIVES ALONE ON SECOND FLOOR CONDO REQUIRING 14 STAIRS TO GET IN AND OUT WITH. SHE WAS INDEPENDENT WITH ADLS AND IADLS AND NO DEVICES USED PRIOR TO. SHE WAS DRIVING WELL. CURRENT LEVEL OF FUNCTION: PATIENT SITTING IN CHAIR UPON THERAPIST ARRIVAL. SHE IS AMBULATING WITH USE OF ROLLING WALKER THROUGHOUT APARTMENT. SHE WAS ABLE TO DEMONSTRATE [id number] TRANSFER SUPERVISION WELL TOILET TRANSFER WITH SUPERVISION. SHE IS UNABLE TO STEP IN AND OUT OF TUB AT THIS TIME WITHOUT BARS. SHE IS HAVING INCONSISTENT PAIN DUE TO CONSTIPATION AT THIS TIME THAT COMES AND GOES. SHE IS IN THE PROCESS OF TRYING TO RECTIFY HER BOWEL SITUATION WHICH WILL THEN EASE AND ALLOW HER TO PARTICIPATE AND MORE ACTIVITY. SHE IS ABLE TO SPONGE BATHE AND DRESS HERSELF WITHOUT DIFFICULTY SEATED. SHE DEMONSTRATED ABILITY TO DON AND DOFF SOCKS AND SHOES TODAY. SHE IS HAVING DIFFICULTY STANDING LONG PERIODS OF TIME THEREFORE IMPACTING HER ABILITY TO PREPARE MEALS. AT THIS TIME HAS FRIENDS HELP WITH LAUNDRY BECAUSE IT IS OUTSIDE OF THE HOME. SHE DOES DEMONSTRATE WITHIN FUNCTIONAL LIMITS RANGE OF MOTION BOTH UPPER EXTREMITIES WITH FAIR STRENGTH THROUGHOUT BILATERALLY. HER ENDURANCE FROM BEING HOSPITALIZED OVER THE LAST 2 MONTHS IS NOT FOR BASELINE AND WOULD BENEFIT FROM ENERGY CONSERVATION TRAINING, STRENGTH TRAINING, AND OBTAINING ADAPTIVE EQUIPMENT TO EASE ADL STRAIN. PATIENT ONLY OFFERS COMPLAINTS OF PAIN FROM CONSTIPATION OTHERWISE WITHOUT PAIN. ASSESSMENT /POC: OCCUPATIONAL THERAPY EVALUATION COMPLETED WITH RECOMMENDATION FOR SKILLED OT SERVICES ONE TIME A WEEK X6 TO MEET GOALS. PATIENT IN AGREEMENT WITH PLAN TO ADDRESS ENDURANCE FOR FUNCTIONAL ACTIVITIES WELL SAFETY WITH TOILET TRANSFERS AND SHOWER LEVEL BATHING. MD NOTIFIED OF OT EVALUATION AND PLAN OF CARE. PATIENT WAS SEEN BY UROLOGY LAST WEEK. NO UPCOMING APPOINTMENTS TO PATIENT'S KNOWLEDGE. 5'4 195#</paragraph> <paragraph>[Visit Date: 2024 by JUANCHO DEE LPN]:</paragraph><paragraph>SNV 04/10/24 ABNORMAL VITALS: NA FALLS: NA OBSERVATION AND ASSESSMENT PROVIDED: ALERT AND ORIENTED X4 PT WITH WEEPY DEMEANOR. VITAL SIGNS WNL OF PT BASELINE. PT DENIES PAIN AT TIME OF ASSESSMENT. CURRENTLY UTILIZING SENNA AND MIRALAX ORDERED FROM MD TO RELEAVE CONSTIPATION. PT REPORTS SMALLL/MEDIUM RESULTS WITH CURRENT REGIME IN PLACE. EDUCATION ON INCREASING FLUIDS TO PROMOTE CONTINUED BOWEL MOVEMENTS PROVIDED. SKIN INTACT WITH +3 PITTING EDEMA IN BILATERAL LOWER LEGS. EDUCATION PROVIDED ON ELEVATING LEGS WHILE SITTING IN CHAIR TO RELIEVE SWELLING. PT STATES UNDERSTANDING. CALL PLACED TO MEALS ON WHEELS FOR UPDATE ON STARTING PT WITH SERVICE. MESSAGE LEFT WITH MEALS ON WHEELS AT THIS TIME ALONG WITH PT PHONE NUMBER FOR SERVICE TO CALL PT BACK. EDUCATION: ELEVATION OF FEET WHILE SITTING TO REDUCE LOWER LIMB EDEMA. INTERVENTIONS NEEDED AT NEXT VISIT: GENEVIEVE COMMUNICATION WITH MD: GENEVIEVE NEXT MD APPOINTMENT: AUNG PATIENT AND CAREGIVER INSTRUCTED TO CALL [facility] WITH ANY QUESTIONS OR CONCERNS AND/OR CHANGES IN CONDITION, PATIENT STATES UNDERSTANDING. JUANCHO DEE LPN</paragraph> Encounters Start Date/Time End Date/Time Encounter Type Admission Type Attending [facility] Care Facility Care Department Encounter ID Discharge Date Discharge Status Discharge Condition Discharge Reason Percent Goals Met 2024-04-04 00:00:00 2024-06-02 00:00:00 Outpatient NEW ADMISSION BELINDA VARGAS [facility] [id number]
[2024-04-16 14:58] LABS: COVID-19 Test Negative (Negative)
[2024-04-16 14:59] LABS: IDNOW Serial# 08D9AD1C
[2024-04-16 15:18] VITALS: BP 144/53; PULSE 86; RESP 16; TEMP 36.7; O2SAT 100
--- NOTE | 2024-04-16 15:21 | MHC.CM.ED ---
Received case management consult from Dr Muse. Patient was at [facility] for STR from 03/05-04/03. Patient was d/c'd home with [facility] returned to ER due to weakness and constipation. Work up essentially negative. Physical therapy eval ordered and attempted. Patient declined PT eval. Return referral was made to [facility]. [facility] is able to offer a bed. Met with patient to discuss discharge plan. Patient doesn't feel she can return to [facility] because she doesn't like the food. T/W explained only d/c options are home with resumption of [facility] or [facility]. Patient would like to d/c home after dinner. [facility] MARTIN booked for 730pm. Patient, Giovanna VARGAS and Dr Muse aware. [facility] also made aware. Continue to monitor for d/c needs.
[2024-04-16 16:07] LABS: Anion Gap 12 (12-20); Blood Urea Nitrogen 15 mg/dL (9-16); Calcium 8.7 mg/dL (8.4-10.2); Carbon Dioxide 27 mmol/L (22-29); Chloride 109 mmol/L (96-108); Creatinine Clr Calc Pharmacy 66.8; Estimated Glomerular Filt Rate > 60; Glucose Random 104 mg/dL (60-115); Potassium 3.7 mmol/L (3.3-5.1); Sodium 144 mmol/L (135-145)
[2024-04-16 18:01] VITALS: BP 140/46; PULSE 76; RESP 16; TEMP 36.7; O2SAT 97
--- NOTE | 2024-04-16 18:01 | PC.NURSE ---
pt awaiting transport home via ambulance
--- NOTE | 2024-04-16 19:29 | PC.NURSE ---
assist with cleaning after BM. EMS here for transport home
[2024-04-16 19:30] VITALS: BP 140/46; PULSE 76; RESP 16; TEMP 36.7; O2SAT 97
== END 2024-04-16 19:30 | disposition home or self-care (01) ==
PROVIDERS: Emergency Provider Emergency Medicine; PCP Internal Medicine
DX: E87.6 Hypokalemia (principal); K56.41 Fecal impaction; R53.1 Weakness; E11.9 Type 2 diabetes mellitus without complications; I10 Essential (primary) hypertension; Z11.52 Encounter for screening for COVID-19; Z79.84 Long term (current) use of oral hypoglycemic drugs
CPT/HCPCS: 36415; 74176; 80048; 80053; 85025; 87635; 96360; 96361; 99284

== ENCOUNTER → 2024-04-16 08:43 | Outpatient (BNV) | payer MEDICARE, OTHER, SELFPAY | PROVIDERS: Emergency Provider Emergency Medicine; PCP Internal Medicine; Visit Provider Radiology Diagnostic Radiology | DX: K43.9 Ventral hernia without obstruction or gangrene (principal); K56.41 Fecal impaction; N20.0 Calculus of kidney; N28.1 Cyst of kidney, acquired; K82.8 Other specified diseases of gallbladder | CPT/HCPCS: 74176 ==

== ENCOUNTER 2024-06-25 08:37 | Emergency (ER) | payer MEDICARE, OTHER, SELFPAY ==
[2024-06-25 08:43] VITALS: BP 160/60; PULSE 94; O2SAT 100
[2024-06-25 08:48] VITALS: BP 137/56; PULSE 87; RESP 16; TEMP 36.7; O2SAT 98; BMI 34.4
--- NOTE | 2024-06-25 08:57 | ED_ITS ---
HPI - Skin/Abscess/Foreign Bdy General Chief complaint: Skin/Abscess/Foreign Body Stated complaint: BLISTER/BOILS UPPER THIGH/COLLTETE AREA X4D PER EMS Time Seen by Provider: 06/25/24 08:38 Source: patient, EMS and old records reviewed Mode of arrival: EMS Limitations: no limitations History of Present Illness ED Provider: TOSHA HPI narrative: 73 yo female with PMH of HTN, arthritis, overactive bladder here with c/o noting blisters R upper thigh x 3 days. She has no hx of MRSA and no hx of blisters anywhere else. She states she didn't dry herself and thinks things rubbed and then the blisters started. No fevers/chills. She tried neosporin without relief. She has no lesions in the genitals just upper R inner thigh. MD complaint: abscess/boil and lesion Onset (ago): day(s) (4) Tetanus up to date: yes Location: RLE Severity: mild Quality: aching Pain Consistency: intermittent Relieving factors: none Exacerbating factors: palpation Context: none Associated symptoms: denies other symptoms Treatments prior to arrival: OTC topical medication Related Data Home Medications ?Medication ?Instructions ?Recorded ?Confirmed amitriptyline 25 mg tablet 25 - 50 mg PO BEDTIME PRN 12/02/20 12/02/20 amlodipine 10 mg tablet 10 mg PO DAILY 12/02/20 12/02/20 hydrochlorothiazide 12.5 mg tablet 12.5 mg PO DAILY 12/02/20 12/02/20 metformin 500 mg tablet,extended 500 mg PO DAILY 12/02/20 12/02/20 release 24 hr metoprolol succinate 100 mg 100 mg PO DAILY 12/02/20 12/02/20 tablet,extended release 24 hr antiarthritic combination no.2 900 mg PO 01/21/21 mg tablet (glucosamine-chondroitin) calcium carbonate (Calcium 600) 600 mg PO DAILY 01/21/21 cholecalciferol (vitamin D3) 25 25 mcg PO DAILY 01/21/21 mcg (1,000 unit) capsule losartan 100 mg tablet 100 mg PO DAILY 01/21/21 Previous Rx's ?Medication ?Instructions ?Recorded oxybutynin chloride 10 mg 10 mg PO DAILY OAB 30 days #30 tabs 12/09/20 tablet,extended release 24 hr vibegron 75 mg tablet (Gemtesa) 75 mg PO DAILY OAB 30 days #30 tabs 01/21/21 compr.stocking,knee,long,x-lrg #12 ea 08/17/21 cephalexin 500 mg capsule 500 mg PO Q6H 7 days #28 caps 04/12/22 cyclobenzaprine 10 mg tablet 10 mg PO TID PRN muscle spasm #20 04/12/22 tabs naproxen 500 mg tablet (Naprosyn) 500 mg PO BID #20 tabs 04/12/22 cefuroxime axetil 500 mg tablet 500 mg PO BID #14 tabs 05/04/23 diclofenac sodium 1 % topical gel 4 g topical QID #100 grams 05/04/23 prednisone 20 mg tablet 40 mg (2 x 20 mg) PO DAILY #10 tabs 05/04/23 cephalexin 500 mg capsule 500 mg PO QID 7 days #28 caps 06/25/24 doxycycline hyclate 100 mg capsule 100 mg PO BID 7 days #14 caps 06/25/24 mupirocin 2 % topical ointment 1 appl topical BID 7 days #15 grams 06/25/24 Allergies Allergy/AdvReac Type Severity Reaction Status Date / Time acetaminophen [From PERCOCET] AdvReac Unknown Headache Verified 06/25/24 08:49 oxycodone [Percocet] AdvReac Unknown headache Verified 04/16/24 08:37 Review of Systems 2 Review of Systems: Constitutional : No Fever, No Chills ENT/Mouth : No sore throat, No Rhinorrhea Eyes: No Eye Pain, No Swelling, No Redness Cardiovascular : No Chest Pain, No SOB Respiratory : No Cough, No Sputum Gastrointestinal : No Nausea, No Vomiting, No Diarrhea, No abdominal Pain Genitourinary : No Dysuria, No Hematuria Musculoskeletal : No joint pain, No Myalgias, No Joint Swelling Skin : pos Skin Lesions, positive skin rash Neuro : No Weakness, No Numbness, No Headache All other systems reviewed and are negative PMFSH Past Medical History Attestation statement: The following information was validated with the patient. Source: old records reviewed Medical History Aftercare following right elbow joint replacement surgery delivery affecting Frequency of urination Renal cyst Renal stone Urgency-frequency syndrome Surgical History H/O total hysterectomy Social History Social History Alcohol intake: never Patient Tobacco Use Status: Never used Tobacco Substance Use Type: Caffiene Advance Directives: Yes Advance Directives on File: Yes Advance Directives Date on File: 04/12/22 Physical Exam 2 Vital Signs: Vital Signs: Last Vital Signs Temp 98.2 F 06/25/24 11:39 Pulse 92 06/25/24 11:39 Resp 16 06/25/24 11:39 BP 148/55 H 06/25/24 11:39 Pulse Ox 98 06/25/24 11:39 O2 Del Method Room Air 06/25/24 08:48 BMI result Body Mass Index 34.4 Appearance: Alert. Oriented X3. No acute distress. Eyes: Pupils equal, round and reactive to light. ENT: Pharynx normal. Neck: Normal inspection. Neck supple. CVS: Normal heart rate and rhythm. Pulses normal. Respiratory: No respiratory distress. Breath sounds normal. Abdomen: Soft and nontender. Skin: Skin warm and dry. Normal skin color. Normal skin turgor. Extremities: No lower extremity edema. R inner thigh clear fluid filled blisters in cluster no sig erythema around it but there is some warmth/erythema no extension to labia, there is a fluctuant area about 2cm Neuro: Oriented X 3. No motor deficit. No sensory deficit. CN2-12 intact Medications Administered Discontinued Medications Generic Name Dose Route Start Last Admin Trade Name Freq PRN Reason Stop Dose Admin Piperacillin Sod/Tazobactam 50 mls @ 100 mls/hr 06/25/24 09:00 06/25/24 09:49 Sod 3.375 gm/ Sodium Chloride IV 06/25/24 09:29 100 mls/hr ONCE ONE Administration Lidocaine HCl 1 appl 06/25/24 09:00 06/25/24 09:48 Lidocaine 4 % Cream Kit TOPICAL 06/25/24 09:01 1 appl ONCE ONE Administration Protocol Medical Decision Making Medical Decision Making MDM Narrative: 73 yo female with PMH of HTN, arthritis, overactive bladder here with c/o R thigh blisters and concern for abscess at this time I have ordered topical numbing medications, IV zosyn, lactic acid and cultures. Seems more infectious vs friction blisters no extension or signs of cheli's. I am going to aspirate the fluctuant area. She has no recent abx use or other exposure to cause this. They are soft fluid filled clear blisters not hemorrhagic Differential Diagnosis Differential Diagnoses: The differential diagnosis associated with the presentation includes cellulitis, friction blisters, no ext to suggest fourniers Admission/Observation Consideration of admission/observation: Escalation of care including admission/observation considered given lack of WBC count no fevers it is reasonable to trial oral outpatient abx she states she can manage the wounds at home on her home. Lab Data MDM Lab Attestation statement: I reviewed the patient's lab results. 06/25/24 09:22 06/25/24 09:22 Labs: Lab Results 06/25/24 Range/Units 09:22 WBC 10.0 (4.8-10.8) X10*3/uL RBC 2.75 L (4.20-5.50) X10*6/uL Hgb 8.7 L (12.0-16.0) g/dl Hct 27.1 L (37.0-47.0) % MCV 98.5 H (80.0-98.0) fL MCH 31.6 (27.0-33.0) pg MCHC 32.1 (31.0-35.0) g/dl RDW 16.5 H (11.0-16.0) % Plt Count 381 (160-400) X10*3/uL MPV 10.7 (9.4-12.3) fL Immature Gran % (Auto) 0.4 (0.0-0.4) % Neut % (Auto) 68.9 (45-73) % Lymph % (Auto) 17.0 L (20-40) % [place] % (Auto) 11.4 H (2-11) % Eos % (Auto) 1.6 (0-4) % Baso % (Auto) 0.7 (0-2) % Lymph # (Auto) 1.7 (1.2-4.9) X10*3/uL [place] # (Auto) 1.1 (0.1-1.2) X10*3/uL Eos # (Auto) 0.2 (0.0-0.4) X10*3/uL Baso # (Auto) 0.1 (0.0-0.2) X10*3/uL Abs Immat Gran (auto) 0.04 H (0.00-0.03) X10*3/uL Absolute Neuts (auto) 6.9 (2.0-8.3) x10*3/uL Absolute Nucleated RBC 0.000 (0.0-0.012) X10*3/uL Nucleated RBC % (auto) 0.0 (0.0-0.2) /100WBC Sodium 141 (135-145) mmol/L Potassium 3.8 (3.3-5.1) mmol/L Chloride 111 H (96-108) mmol/L Carbon Dioxide 24 (22-29) mmol/L Anion Gap 10 L (12-20) BUN 18 H (9-16) mg/dL Creatinine 0.99 (0.5-1.4) mg/dL Estim Creat Clear Calc 54.1 Estimated GFR 55 Random Glucose 126 H (60-115) mg/dL Lactic Acid 1.8 (0.5-2.0) mmol/L Calcium 8.8 (8.4-10.2) mg/dL Magnesium 2.1 (1.6-2.6) mg/dL Total Bilirubin 1.3 H (0.0-1.0) mg/dL Direct Bilirubin 0.3 (0.0-0.5) mg/dL AST 16 (5-31) U/L ALT 8 (0-31) U/L Alkaline Phosphatase 88 (39-117) U/L Total Protein 6.5 (6.5-8.0) g/dL Albumin 3.6 (3.5-5.0) g/dL Independent Historian Clinical information obtained from an independent historian. History obtained from or confirmed by: EMS External Record Review External record reviewed: Outpatient record Prescription Management I considered prescription management with: Antibiotic Procedures Abscess I/D Site: lower extremity Side (if applicable): right Local Anesthetic: other anesthetic Technique: needle aspiration Amount of fluid expressed (mL): 7 Sent for culture/gram staining?: No Irrigation: No Packing used?: none Discharge Plan Discharge Clinical Impression: Blister Abscess of skin or subcutaneous tissue Qualifiers: Site of cutaneous abscess: extremity Site of cutaneous abscess of extremity: l ower extremity Laterality: right Qualified Code(s): L02.415 - Cutaneous abscess of right lower limb Patient Disposition: Home, Self-Care Instructions: Abscess (ED), Blister (ED) Additional Instructions: labs reassuring removed almost 7 mL of purulence from fluctuant area keep area clean dry and covered, do not unroof blisters allow them to resolve on their own take antibiotics and complete course return for any worsening symptoms, fevers, confusion, increased redness/drainage/pain apply this ointment to affected area On a cephalosporin?antibiotic, softer bowel movements are to be expected. Call your provider if you move your bowels more than 4 times a day, your bowel movements are almost all liquid, or you get a rash.?? On doxycycline, do not take pills immediately before going to bed and swallow pills with plenty of water. Avoid direct sunlight, iron, antacids, and Pepto Bismol. Call your provider if you develop new ringing in your ears, new problems hearing, dizziness, difficulty swallowing, rash, abdominal discomfort, nausea, or diarrhea.? Prescriptions: New doxycycline hyclate 100 mg capsule 100 mg PO BID 7 Days Qty: 14 0RF cephalexin 500 mg capsule 500 mg PO QID 7 Days Qty: 28 0RF mupirocin 2 % ointment 1 appl topical BID 7 Days Qty: 15 0RF No Action oxybutynin chloride 10 mg tablet extended release 24hr 10 mg PO DAILY 30 Days Qty: 30 0RF (DME) compr.stocking,knee,long,x-lrg Misc See Rx Instructions .Route Qty: 12 0RF Rx Instructions: As directed cyclobenzaprine 10 mg tablet 10 mg PO TID PRN (Reason: muscle spasm) Qty: 20 0RF naproxen [Naprosyn] 500 mg tablet 500 mg PO BID Qty: 20 0RF cephalexin 500 mg capsule 500 mg PO Q6H 7 Days Qty: 28 0RF prednisone 20 mg tablet 40 mg PO DAILY Qty: 10 0RF diclofenac sodium 1 % gel 4 g topical QID Qty: 100 0RF Rx Instructions: apply to lower back cefuroxime axetil 500 mg tablet 500 mg PO BID Qty: 14 0RF metoprolol succinate 100 mg tablet extended release 24 hr 100 mg PO DAILY amitriptyline 25 mg tablet 25 - 50 mg PO BEDTIME PRN amlodipine 10 mg tablet 10 mg PO DAILY metformin 500 mg tablet extended release 24 hr 500 mg PO DAILY hydrochlorothiazide 12.5 mg tablet 12.5 mg PO DAILY calcium carbonate [Calcium 600] 600 mg calcium (1,500 mg) tablet 600 mg PO DAILY cholecalciferol (vitamin D3) 25 mcg (1,000 unit) capsule 25 mcg PO DAILY glucosamine-chondroitin 900 mg tablet PO losartan 100 mg tablet 100 mg PO DAILY Gemtesa 75 mg tablet 75 mg PO DAILY 30 Days Qty: 30 3RF Print Language: Stateless
[2024-06-25 09:28] LABS: MANUAL DIFF FLAG NO
[2024-06-25 09:29] LABS: Basophils Absolute Auto 0.1 X10*3/uL (0.0-0.2); Basophils Percent Auto 0.7 % (0-2); Eosinophils Absolute Auto 0.2 X10*3/uL (0.0-0.4); Eosinophils Percent Auto 1.6 % (0-4); Hematocrit 27.1 % (37.0-47.0); Hemoglobin 8.7 g/dl (12.0-16.0); Imm Gran Abs Auto 0.04 X10*3/uL (0.00-0.03); Imm Gran Pct Auto 0.4 % (0.0-0.4); Lymphocytes Absolute Auto 1.7 X10*3/uL (1.2-4.9); Mean Corpuscular HGB Conc 32.1 g/dl (31.0-35.0); Mean Corpuscular Hemoglobin 31.6 pg (27.0-33.0); Mean Corpuscular Volume 98.5 fL (80.0-98.0); Mean Platelet Volume 10.7 fL (9.4-12.3); Monocytes Absolute Auto 1.1 X10*3/uL (0.1-1.2); Monocytes Percent Auto 11.4 % (2-11); Neutrophils Absolute Auto 6.9 x10*3/uL (2.0-8.3); Neutrophils Percent Auto 68.9 % (45-73); Platelet Count 381 X10*3/uL (160-400); Red Blood Count 2.75 X10*6/uL (4.20-5.50); Red Cell Distribution Width 16.5 % (11.0-16.0)
[2024-06-25] MEDS: Lidocaine 4 % Cream KIT 1 APPL TOPICAL (09:48)
[2024-06-25] MEDS: Piperacillin Sodium/Tazobactam 3.375 GM in 0.9 % Sodium Chloride 50 ML IV (09:49)
[2024-06-25 09:59] LABS: Alanine Aminotransferase 8 U/L (0-31); Albumin Level 3.6 g/dL (3.5-5.0); Alkaline Phosphatase 88 U/L (39-117); Anion Gap 10 (12-20); Aspartate Amino Transferase 16 U/L (5-31); Bilirubin Direct 0.3 mg/dL (0.0-0.5); Bilirubin Total 1.3 mg/dL (0.0-1.0); Blood Urea Nitrogen 18 mg/dL (9-16); Calcium 8.8 mg/dL (8.4-10.2); Carbon Dioxide 24 mmol/L (22-29); Chloride 111 mmol/L (96-108); Creatinine Clr Calc Pharmacy 54.1; Estimated Glomerular Filt Rate 55; Glucose Random 126 mg/dL (60-115); Magnesium 2.1 mg/dL (1.6-2.6); Potassium 3.8 mmol/L (3.3-5.1); Sodium 141 mmol/L (135-145); Total Protein 6.5 g/dL (6.5-8.0)
--- OUTSIDE RECORDS SUMMARY | 2024-06-25 10:10 | XMS_ITS | Encounter Summary ---
Author Organization [facility] Address [address] [place] [address] Care Team Providers Care Quad Stayer Name Role Phone Washington Arias MD Primary Care Provider [phone] Encounter Details Date Type Department Care Team (Late st Contact Info) Description 02/07/2024 Lab Requisition [facility] [address] [place] [address] Malik Dolan MD [address] [facility] [address] [place] [address] Urinary tract infection, site not specified Social History Tobacco Use Types Packs/Day Years Used Date Smoking Tobacco: Never Passive Smoke Exposure: Never Smokeless Tobacco: Never Alcohol Use Standard Drinks/Week Comments Not Currently 0 (1 standard drink = 0.6 oz pur e alcohol) RARLEY Comments Unknown Sex and Gender Information Value Date Recorded Sex Assigned at Female 01/25/2024 9:35 AM EST Legal Sex Female 9:56 PM EST Gender Identity Female 01/25/2024 9:35 AM EST Sexual Orientation Straight 01/25/2024 9: 35 AM EST documented as of this encounter Plan of [...] if clinically indicated. 02/08/2024 7:44 AM EST [facility] Other Topography unknown / Unknown 02/06/2024 02/07/2024 10:36 AM EST Malik Dolan MD LAB MICROBIOLOGY - G ENERAL ORDERABLES Final Result [facility] [address] [place] [address], documented in this encounter Visit Diagnoses Diagnosis Urinary tract infection, site not specified documented in this encounter Additional Health Concerns Infection Onset Date Last Indicated Resolved Time Gastrointestinal Rule-Out 02/28/2024 02/28/2024 7:04 PM EST documented as of this encounter Care Teams Quad Stayer Relationship Specialty Start Date End Date Washington Arias MD [address] [place] [id number] PCP - General Internal Medicine 01/27/24 documented as of this encounter
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
[2024-06-25 10:19] LABS: Lactic Acid 1.8 mmol/L (0.5-2.0)
[2024-06-25 11:39] VITALS: BP 148/55; PULSE 92; RESP 16; TEMP 36.8; O2SAT 98
--- NOTE | 2024-06-25 11:40 | PC.NURSE ---
Patient presents with multiple abscesses to vaginal area. Able to drain the largest abscess. Patient tolerated procedures well. Patient denies any pain and appears comfortable at this time.
[2024-06-25 12:21] VITALS: BP 148/55; PULSE 92; RESP 16; TEMP 36.8; O2SAT 98
== END 2024-06-25 12:22 | disposition home or self-care (01) ==
PROVIDERS: Emergency Provider Emergency Medicine; PCP Internal Medicine
DX: S70.321A Blister (nonthermal), right thigh, initial encounter (principal); L02.415 Cutaneous abscess of right lower limb; X58.XXXA Exposure to other specified factors, initial encounter; Y93.9 Activity, unspecified; Y92.9 Unspecified place or not applicable; Y99.8 Other external cause status; Z79.899 Other long term (current) drug therapy
CPT/HCPCS: 10060; 36415; 80048; 80076; 83605; 83735; 85025; 87040; 96374; 99284; J2543

== ENCOUNTER 2024-07-06 09:08 | Outpatient (AMB) | payer MEDICARE, OTHER, SELFPAY ==
--- NOTE | 2024-07-06 09:13 | MHC.OFFVIS ---
Vital Signs 07/06/24 09:23 Height 5 ft 3 in Weight 184 lb BMI 32.6 BP 131/60 Blood Pressure Location Lt brachial Position Sitting Pulse 86 Intake Visit Reasons: Upper Leg abscess Intake Note: Patient is seen in office for evaluation of a cutaneous abscess of the upper right leg. Pt c/o: started as a boil, went to ED and was aspirated, was given antibiotics, is smaller, still causes discomfort PCP:06/29/24 Stem Shaper Required: No Accompanied by: Other Relationship Allergies acetaminophen [From PERCOCET] Adverse Reaction (Unknown, Verified 07/06/24 09:22) Headache oxycodone [Percocet] Adverse Reaction (Unknown, Verified 07/06/24 09:22) headache Medication List - Last Reconciled 07/06/24 by Trent Dsouza MD amitriptyline 25 - 50 mg PO BEDTIME PRN amlodipine 10 mg PO DAILY antiarthritic combination no.2 (glucosamine-chondroitin) mg PO calcium carbonate (Calcium 600) 600 mg PO DAILY cefuroxime axetil 500 mg PO BID cephalexin 500 mg PO Q6H 7 days cephalexin 500 mg PO QID 7 days cholecalciferol (vitamin D3) 25 mcg PO DAILY compr.stocking,knee,long,x-lrg As directed cyclobenzaprine 10 mg PO TID PRN diclofenac sodium 1% 4 grams topical QID doxycycline hyclate 100 mg PO BID 7 days hydrochlorothiazide 12.5 mg PO DAILY losartan 100 mg PO DAILY metformin ER 500 mg PO DAILY metoprolol succinate ER 100 mg PO DAILY mupirocin 2% 1 appl topical BID 7 days naproxen (Naprosyn) 500 mg PO BID oxybutynin chloride ER 10 mg PO DAILY 30 days prednisone 40 mg (2 x 20 mg) PO DAILY vibegron (Gemtesa) 75 mg PO DAILY 30 days HPI HPI Upper Leg abscess: Location: R upper thigh HPI Comments Details: 73 year old female presents to the office for evaluation of a left upper thigh abscess. patient reports she was seen in the ED on 06/25 for aspiration of the abscess. States she was prescribed antibiotics but was inconsistent with her nightly dose and thus only finished her 7 day course yesterday. She continues to endorse a firm area where the aspiration was performed. She denies any fever, redness, warmth or tenderness to the area. She has been getting assistance from a friend who has been changing her dressings twice daily. There is also multiple surround skin ulcers that they state were secondary to the adhesive tape used for dressings, they have switched to paper tape for subsequent dressing changes. They note improvement of the area overall. COUNTS INCLUDE 234 BEDS AT THE [facility] Medical History Aftercare following right elbow joint replacement surgery delivery affecting Frequency of urination Renal cyst Renal stone Urgency-frequency syndrome Surgical History H/O total hysterectomy Social History Alcohol intake: never Patient Tobacco Use Status: Never used Tobacco Substance Use Type: Caffiene Advance Directives Date on File: 04/12/22 Review of Systems Const All systems reviewed & are unremarkable except as noted in HPI and below Denies fever(s) Skin/Breast Reports other (right upper thigh firm abscess, multiple surrounding ulcers) Physical Exam Vital Signs: Last Vital Signs Pulse 86 07/06/24 09:23 BP 131/60 07/06/24 09:23 BMI result Body Mass Index 32.6 Const General: no acute distress, alert and awake Orientation/consciousness: patient oriented x3 Resp Effort & Inspection: normal respiratory effort and able to speak in complete sentences Skin Other: r upper thigh: 3 cm area of induration without overlying erythema, nontender. some evidence of flucutant discharge noted on dressing. Multiple surrounding skin ulcers Neuro General: patient oriented x3 Assessment & Plan Assessment & Plan (1) Abscess of skin or subcutaneous tissue: Comment: right upper thigh Code(s): L02.91 - Cutaneous abscess, unspecified Category: Medical Qualifiers: Laterality: right Site of cutaneous abscess: extremity Site of cutaneous abscess of extremity: lower extremity Qualified Code(s): L02.415 - Cutaneous abscess of right lower limb Plan: see plan below Plan 73-year-old female presenting for evaluation of a right upper thigh skin abscess. Patient continues to have concern for abscess after aspiration and completion of antibiotics. Exam shows a 3 cm area of induration at the site of aspiration, with multiple skin ulcers in the surrounding areas that the patient believes is secondary to the adhesive tape used for dressings. The area of induration was non tender and had no overlying erythema. Some discharge was noted on dressing at the time of removal. Plan to follow up in 1 week to evaluate for improvement of the area. Prescribed a repeat course of antibiotics. We discussed the importance of following the directions of the prescription. New dressing was applied in office and recommended daily changes and cleaning of the area as well as personal hygine. Will discuss plan at next visit if it is not resolving with second course of antibiotics. Patient can return sooner if the her symptoms worsen prior to her follow up appointment Medications: Refilled doxycycline hyclate 100 mg PO BID 14 caps 0RF 7 days cephalexin 500 mg PO QID 28 caps 0RF 7 days Coding Level of Care Code New Pt Level 4 (99448) Diagnoses Abscess of skin or subcutaneous tissue L02.415 Laterality: right Site of cutaneous abscess: extremity Site of cutaneous abscess of extremity: lower extremity
[2024-07-06 09:23] VITALS: BP 131/60; PULSE 86; BMI 32.6
--- OUTSIDE RECORDS SUMMARY | 2024-07-06 09:37 | XMS_ITS | Clinical Summary ---
Author Organization [facility] Address [address] [place] [address] Phone Care Team Providers Care Director Of Compensation Name Role Phone Washington Banda MD Primary Care Provider [phone]- [phone] Allergies Active Allergy Reactions Criticality Noted Date [...] Date Acute cystitis without hematuria 02/28/2024 03/05/2024 Immunizations Name Administration Dates Next Due Moderna [...] Record ed Within the last 3 months, aure w many times did you visit the [...] care for your loved ones. For example, registered nurse maternal child or elderly care for an older adult? [...] age to complete this topic Meningococcal B Vaccine Aged Out No l onger eligible based on patient's age to complete this topic RSV Immunization Patients Under 20 months Aged Out No longer eligible based on patient's age to complete this topic Varicella Vaccines Aged Out No longer eligible based on patient's age to complete this topic Medical Devices Implanted Type Area Facilities Flight Check Pilot Device Identifier Shelf Expiration Date Model / Serial / Lot Stent Uret [id number] Stretch W/O Gw - Sn/A - [id number] Implanted:Qty: 1 on 01/30/2024 by Malik Dolan MD at [facility] Stents Left: Ureter [employer]G Y 07/17/2026 [id number] / N/A / [id number] Procedures Procedure Name Priority Date/Time Associated Diagnosis Comments BASIC METABOLIC PANEL Routine 03/05/2024 5:29 AM EST [facility] SCREENING DIGITAL Routine 11/12/2019 9:29 AM EDT Encounter for screening mammogram for malignant neoplasm of breast from Last 3 Months or Most Recently Relevant to Health Maintenance Results * (ABNORMAL) Basic metabolic panel (03/05/2024 5:29 AM EST) Sodium 143 133 - 145 mmol/L LAB CHEMISTRY METHOD 03/05/2024 6:59 AM [facility] Potassium 4.7 3.5 - 5.5 mmol/L LAB CHEMISTRY METHOD 03/05/2024 6:59 AM [facility] Chloride 108 96 - 110 mmol/L LAB CHEMISTRY METHOD 03/05/2024 6:59 AM [facility] CO2 31 21 - 32 mmol/L LAB CHEMISTRY METHOD 03/05/2024 6:59 AM [facility] Anion Gap 4 3 - 11 LAB CHEMISTRY METHOD 03/05/2024 6:59 AM [facility] Glucose 123(H) 70 - 100 mg/dL LAB CHEMISTRY METHOD 03/05/2024 6:59 AM [facility] BUN 14 5 - 25 mg/dL LAB CHEMISTRY METHOD 03/05/2024 6:59 AM [facility] Creatinine 0.76 0.50 - 1.10 mg/dL LAB CHEMISTRY METHOD 03/05/2024 6:59 AM [facility] eGFR 83 >=60 mL/min/1. 73m2 LAB CHEMISTRY METHOD 03/05/2024 6:59 AM [facility] Comment:Calculation based on the??Chronic Kidney Disease Epidemiology Collaboration (CKD-EPI) equation refit??without adjustment for race. BUN/Creatinine Ratio 18.4 LAB CHEMISTRY METHOD 03/05/2024 6:59 AM [facility] Calcium 9.2 8.5 - 10.5 mg/dL LAB CHEMISTRY METHOD 03/05/2024 6:[address] [facility] Blood Venous blood specimen / Unknown Venipuncture / Unknown 03/05/2024 5:29 AM EST 03/05/2024 6:26 AM EST us Jermaine Gold MD LAB BLOOD ORDERABLES Final Resul t [facility] [address] [place] [address], * TERESE SCREENING DIGITAL (11/12/2019 9:29 AM EDT) Anatomical Region Laterality Modality Mammography 11/12/2019 6:5 4 AM EDT Narrative 11/12/2019 9:29 AM EDT [facility] Diagnostic Imaging Department [address] [place] [address] Patient: ??ROSELYN POMPA ?/Age/Sex: 1950 - 69 - F Unit#: ??[id number] ? Location/Status: ??SPDIMAM/REG CLI ? Mnemonic/Ordering Site: ??DIGSC/SPMAM Ordering Physician: ??WASHINGTON BANDA MD [facility] Screening Digital - 11/12/19 - 075 INDICATION: SCREENING COMPARISON: [facility] mammograms dating back to ?? 06/10/2014 TECHNIQUE: CC and MLO views of the breasts were obtained, using full field digital mammography with 3D tomosynthesis views in the MLO projection. A cleavage view was also obtained. ??Anterior compression views of each breast obtained in CC projection. Computer aided detection with the [employer] 7.2-H was employed. FINDINGS: The breasts contain [...] date for the next mammogram. (G0202 / [id number]) , ??50019 Dictating Physician: ??MARIO ALBERTO THOMAS MD Electronically Signed by: ??MARIO ALBERTO THOMAS MD Dic Date/Time: ??11/12/19921 Sign date/Time: ??11/12/19928 Procedure Note Mario Alberto Thomas MD - 03/10/2022 [facility] Diagnostic Imaging Department [address] [place] [address] Patient: ALETHAROSELYN D.O.B./Age/Sex: 1950 - 69 - F Unit#: [id number] Location/Status: [facility] CLI Mnemonic/Ordering Site: [facility] Ordering Physician: WASHINGTON BANDA MD [facility] Screening Digital - 11/12/19 - 0751 INDICATION: SCREENING COMPARISON: [facility] mammograms dating back to 06/10/2014 TECHNIQUE: CC and MLO views of the breasts were obtained, using full field digital mammography with 3D tomosynthesis views in the MLO projection. A cleavageview was also obtained. Anterior compression views of each breast obtained inCC projection. Computer aided detection with the [employer] 7.2-H was employed. FINDINGS: The breasts contain [...] a target date for the next mammogram. G0945 / [id number]) , 14271 Dictating Physician: MARIO ALBERTO THOMAS MD Electronically Signed by: MARIO ALBERTO THOMAS MD Dic Date/Time: 11/12/19921 Sign date/Time: 11/12/19928 Washington Banda MD IMG BI PROCEDURES Final Re sult from Last 3 Months or Most Recently Relevant to Health Maintenance Insurance MEDICARE AETNA Advance Directives * Full Code - Confirmed [...] currently active code status orders. Care Teams Director Of Compensation Relationship Specialty Start Date End Date Washington Banda MD [address] [place] [address] [phone] PCP - General Internal Medicine 01/27/24
--- OUTSIDE RECORDS SUMMARY | 2024-07-06 09:37 | XMS_ITS | Encounter Summary ---
Author Organization [facility] [address] Address [address] [place] [address] Care Team Providers Care Drainlayer Name Role Phone Washington Arias MD Primary Care Provider +1- [phone] Encounter Details Date Type Department Care Team (Late st Contact Info) Description 02/07/2024 Lab Requisition [facility] - Main Lab [address] [place] [address] Malik Dolan MD [address] [facility] [address] [place] [address] Urinary tract infection, site not specified Social [...] if clinically indicated. 02/08/2024 7:44 AM EST [facility] Other Topography unknown / Unknown 02/06/2024 02/07/2024 10:36 AM EST Malik Dolan MD LAB MICROBIOLOGY - G ENERAL ORDERABLES Final Result [facility] [address] [place] [address], documented in this encounter Visit Diagnoses Diagnosis Urinary tract infection, site not specified documented in this encounter Additional Health Concerns Infection Onset Date Last Indicated Resolved Time Gastrointestinal Rule-Out 02/28/2024 02/28/2024 7:04 PM EST documented as of this encounter Care Teams Drainlayer Relationship Specialty Start Date End Date Washington Arias MD [address] [place] [phone] PCP - General Internal Medicine 01/27/24 documented as of this encounter
== END 2024-07-06 09:43 | disposition home or self-care (01) ==
LOC: HO.HGS 09:09
PROVIDERS: PCP Internal Medicine; Visit Provider Surgery
DX: L02.415 Cutaneous abscess of right lower limb (principal)
CPT/HCPCS: 99204

== ENCOUNTER → 2024-07-06 09:08 | Outpatient (BNVA) | payer MEDICARE, OTHER, SELFPAY | PROVIDERS: PCP Internal Medicine; Visit Provider Surgery | DX: L02.415 Cutaneous abscess of right lower limb (principal) | CPT/HCPCS: 99202 ==

== ENCOUNTER 2024-07-17 11:15 | Outpatient (AMB) | payer MEDICARE, OTHER, SELFPAY ==
--- NOTE | 2024-07-17 11:24 | MHC.OFFVIS ---
Vital Signs 07/17/24 11:37 Height 5 ft 3 in Weight 187 lb BMI 33.1 BP 154/70 H Blood Pressure Location Lt brachial Position Sitting Pulse 81 Intake Visit Reasons: 1WK FUV Upper Leg abscess Intake Note: Patient is seen in office for one week follow up visit, following cutaneous abscess of the upper right leg. Pt c/o: denies discharge, is clear and healed Cotton Presser Required: No Accompanied by: Family/Other Allergies acetaminophen [From PERCOCET] Adverse Reaction (Unknown, Verified 07/17/24 11:37) Headache oxycodone [Percocet] Adverse Reaction (Unknown, Verified 07/17/24 11:37) headache HPI Comments Details: 73-year-old female presenting to the office for follow up of a right upper thigh abscess. Patient states there has been significant improvement. There is no longer any pain, discharge. States it no longer feels hard. She has completed the course of antibiotics and has been keeping clean dressings with frequent changes prior to the appointment [facility] Medical History Aftercare following right elbow joint replacement surgery delivery affecting Frequency of urination Renal cyst Renal stone Urgency-frequency syndrome Surgical History H/O total hysterectomy Social History Alcohol intake: never Patient Tobacco Use Status: Never used Tobacco Substance Use Type: Caffiene Advance Directives Date on File: 04/12/22 Review of Systems Const All systems reviewed & are unremarkable except as noted in HPI and below Physical Exam Vital Signs: Last Vital Signs Pulse 81 07/17/24 11:37 BP 154/70 H 07/17/24 11:37 BMI result Body Mass Index 33.1 Const General: comfortable and no acute distress Orientation/consciousness: patient oriented x3 Skin Other: right upper thigh appears to be improving. No evidence of further fluid collection. General skin exam: no erythema, no fluctuance and no induration Neuro General: patient oriented x3 Assessment & Plan Assessment & Plan (1) Abscess of skin or subcutaneous tissue: Comment: right upper thigh Code(s): L02.91 - Cutaneous abscess, unspecified Category: Medical Qualifiers: Laterality: right Site of cutaneous abscess: extremity Site of cutaneous abscess of extremity: lower extremity Qualified Code(s): L02.415 - Cutaneous abscess of right lower limb Plan: see below Plan 73-year-old female presenting for follow up of right upper thigh abscess. Patient experiencing significant iprovement. Denies pain, discharge. She completed the full course of abx. Physical exam is reassuring, the wound appears to be healing well. No concern for continued infection. Instructed her that she no longer needs to cover with a dressing. Patient can follow up in the future as needed with concerns or new problems. Coding Level of Care Code Est Pt Level 2 (22381) Diagnoses Abscess of skin or subcutaneous tissue L02.415 Laterality: right Site of cutaneous abscess: extremity Site of cutaneous abscess of extremity: lower extremity Time Spent (min) 28
[2024-07-17 11:37] VITALS: BP 154/70; PULSE 81; BMI 33.1
--- OUTSIDE RECORDS SUMMARY | 2024-07-17 13:17 | XMS_ITS | Encounter Summary ---
Author Organization [facility] Address [address] [place] [address] Care Team Providers Care Transport Truck Driver Name Role Phone Washington Arias MD Primary Care Provider +1- [phone] Encounter Details Date Type Department Care Team (Late st Contact Info) Description 02/07/[address] [facility] - Main Lab [address] [place] [address] Malik Dolan MD [address] [facility] [address] [place] [address] Urinary tract infection, site not specified Social [...] if clinically indicated. 02/08/2024 7:44 AM EST [facility] Other Topography unknown / Unknown 02/06/2024 02/07/2024 10:36 AM EST Malik Dolan MD LAB MICROBIOLOGY - G ENERAL ORDERABLES Final Result [facility] [address] [place] [address], documented in this encounter Visit Diagnoses Diagnosis Urinary tract infection, site not specified documented in this encounter Additional Health Concerns Infection Onset Date Last Indicated Resolved Time Gastrointestinal Rule-Out 02/28/2024 02/28/2024 7:04 PM EST documented as of this encounter Care Teams Transport Truck Driver Relationship Specialty Start Date End Date Washington Arias MD [address] [place] [phone] PCP - General Internal Medicine 01/27/24 documented as of this encounter
--- OUTSIDE RECORDS SUMMARY | 2024-07-17 13:17 | XMS_ITS | Clinical Summary ---
Author Organization [facility] Address [address] [place] [address] Phone Care Team Providers Care Steam Finisher Name Role Phone Washington Banda MD Primary Care Provider +1- [phone] Allergies Active Allergy Reactions Criticality Noted Date [...] Record ed Within the last 3 months, uare w many times did you visit the [...] for your loved ones. For example, child life therapist or elderly care for an older adult? [...] this topic Medical Devices Implanted Type Area It Technical Architect Device Identifier Shelf Expiration Date Model / Serial / Lot Stent Uret [id number] Stretch W/O Gw - Sn/A - [id number] Implanted:Qty: 1 on 01/30/2024 by Malik Dolan MD at [facility] Stents Left: Ureter [employer]GYNECOLG Y 07/17/2026 [id number] / N/A / [id number] Procedures Procedure Name Priority Date/Time Associated Diagnosis [...] mmol/L LAB CHEMISTRY METHOD 03/05/2024 6:59 AM [facility] Potassium 4.7 3.5 - 5.5 mmol/L LAB CHEMISTRY METHOD 03/05/2024 6:59 AM [facility] Chloride 108 96 - 110 mmol/L LAB CHEMISTRY METHOD 03/05/2024 6:59 AM [facility] CO2 31 21 - 32 mmol/L LAB CHEMISTRY METHOD 03/05/2024 6:59 AM [facility] Anion Gap 4 3 - 11 LAB CHEMISTRY METHOD 03/05/2024 6:59 AM [facility] Glucose 123(H) 70 - 100 mg/dL LAB CHEMISTRY METHOD 03/05/2024 6:59 AM [facility] BUN 14 5 - 25 mg/dL LAB CHEMISTRY METHOD 03/05/2024 6:59 AM [facility] Creatinine 0.76 0.50 - 1.10 mg/dL LAB CHEMISTRY METHOD 03/05/2024 6:59 AM [facility] eGFR 83 >=60 mL/min/1. 73m2 LAB CHEMISTRY METHOD 03/05/2024 6:59 AM [facility] Comment:Calculation based on the??Chronic Kidney Disease Epidemiology Collaboration (CKD-EPI) equation refit??without adjustment for race. BUN/Creatinine Ratio 18.4 LAB CHEMISTRY METHOD 03/05/2024 6:59 AM [facility] Calcium 9.2 8.5 - 10.5 mg/dL LAB CHEMISTRY METHOD 03/05/2024 6:[address] [facility] Blood Venous blood specimen / Unknown Venipuncture / Unknown 03/05/2024 5:29 AM EST 03/05/2024 6:26 AM EST us Jermaine Gold MD LAB BLOOD ORDERABLES Final Resul t [facility]) [facility] [address] [place] [address], * TERESE SCREENING DIGITAL (11/12/2019 9:29 AM EDT) Anatomical Region Laterality Modality Mammography 11/12/2019 6:54 AM EDT Narrative 11/12/2019 9:[address] [facility] Diagnostic Imaging Department [address] [place] [address] Patient: ??ROSELYN POMPA ?/Age/Sex: 1950 - 69 - F Unit#: ??[id number] ? Location/Status: ??SPDIMAM/REG CLI ? Mnemonic/Ordering Site: ??DIGSC/SPMAM Ordering Physician: ??WASHINGTON BANDA MD Terese Screening Digital - 11/12/19 - 0751 INDICATION: SCREENING COMPARISON: [facility] mammograms dating back to ?? 06/10/2014 TECHNIQUE: CC and MLO views of the breasts were obtained, using full field digital mammography with 3D tomosynthesis views in the MLO projection. A cleavage view was also obtained. ??Anterior compression views of each breast obtained in CC projection. Computer aided detection with the [employer] 7.2-H was employed. FINDINGS: The breasts contain [...] date for the next mammogram. (G0202 / 22071) , ??[id number] Dictating Physician: ??MARIO ALBERTO THOMAS MD Electronically Signed by: ??MARIO ALBERTO THOMAS MD Dic Date/Time: ??11/12/19921 Sign date/Time: ??11/12/19928 Procedure Note Mario Alberto Thomas MD - 03/10/2022 [facility] Diagnostic Imaging Department [address] [place] [address] Patient: ALETHAROSELYNJAZMIN Bailey D.O.B./Age/Sex: 1950 - 69 - F Unit#: [id number] Location/Status: [facility] CLI Mnemonic/Ordering Site: [facility] Ordering Physician: WASHINGTON BANDA MD Terese Screening Digital - 11/12/19 - 0751 INDICATION: SCREENING COMPARISON: [facility] mammograms dating back to 06/10/2014 TECHNIQUE: CC and MLO views of the breasts were obtained, using full field digital mammography with 3D tomosynthesis views in the MLO projection. A cleavageview was also obtained. Anterior compression views of each breast obtained inCC projection. Computer aided detection with the [employer] 7.2-H was employed. FINDINGS: The breasts contain [...] a target date for the next mammogram. G0982 / 34948) , [id number] Dictating Physician: MARIO ALBERTO THOMAS MD Electronically [...] currently active code status orders. Care Teams Steam Finisher Relationship Specialty Start Date End Date Washington Banda MD [address] [place] [phone] PCP - General Internal Medicine 01/27/24
== END 2024-07-17 12:06 | disposition home or self-care (01) ==
LOC: HO.HGS 11:16
PROVIDERS: PCP Internal Medicine; Visit Provider Surgery
DX: L02.415 Cutaneous abscess of right lower limb (principal)
CPT/HCPCS: 99212

== ENCOUNTER → 2024-07-17 11:15 | Outpatient (BNVA) | payer MEDICARE, OTHER, SELFPAY | PROVIDERS: PCP Internal Medicine; Visit Provider Surgery | DX: L02.415 Cutaneous abscess of right lower limb (principal) | CPT/HCPCS: 99212 ==

== ENCOUNTER 2024-09-18 14:54 | Outpatient (AMB) | payer MEDICARE, OTHER, SELFPAY ==
--- NOTE | 2024-09-18 14:56 | MHC.OFFVIS ---
Vital Signs 09/18/24 15:05 Height 5 ft 3 in Weight 196 lb BMI 34.7 BP 162/70 H Blood Pressure Location Lt brachial Position Sitting Pulse 79 Intake Visit Reasons: right upper thigh abscess Intake Note: Patient is seen in office for cutaneous abscess of the upper right leg. Pt c/o: has a new abscess on the same leg, bleeding, discharge, was given antbx by PCP, onset one week ago, abscess of the inner thigh might be due to rubbing [employer] Ch[employer] Director Required: No Accompanied by: Self / Same As Patient Allergies acetaminophen (From PERCOCET) Adverse Reaction (Unknown, Verified 09/18/24 15:03) Headache oxycodone (Percocet) Adverse Reaction (Unknown, Verified 09/18/24 15:03) headache Medication List - Last Reconciled 09/18/24 by Trent Dsouza MD amitriptyline 25 - 50 mg PO BEDTIME PRN amlodipine 10 mg PO DAILY antiarthritic combination no.2 (glucosamine-chondroitin) mg PO calcium carbonate (Calcium 600) 600 mg PO DAILY cefuroxime axetil 500 mg PO BID cholecalciferol (vitamin D3) 25 mcg PO DAILY compr.stocking,knee,long,x-lrg As directed cyclobenzaprine 10 mg PO TID PRN diclofenac sodium 1% 4 grams topical QID doxycycline hyclate 100 mg PO BID 7 days hydrochlorothiazide 12.5 mg PO DAILY losartan 100 mg PO DAILY metformin ER 500 mg PO DAILY metoprolol succinate ER 100 mg PO DAILY mupirocin 2% 1 appl topical BID 7 days naproxen (Naprosyn) 500 mg PO BID oxybutynin chloride ER 10 mg PO DAILY 30 days prednisone 40 mg (2 x 20 mg) PO DAILY vibegron (Gemtesa) 75 mg PO DAILY 30 days HPI Comments Details: 74-year-old female patient presenting with a recurrent infection in the right upper inner thigh. She has been wearing a incontinence pad and feels that the pad is irritating her skin. She is uncertain if the skin is getting wet from the diaper or if it is more irritation from the elastic. She now has an area of swelling and discharge in the posterior portion of the upper inner thigh. She was started on doxycycline 100 mg p.o. b.i.d. for 7 days on 09/14/2024. She notes some improvement but continues to have discharge. She presents to discuss possible incision and drainage. ON LICENSE OF [facility] Medical History Aftercare following right elbow joint replacement surgery delivery affecting Frequency of urination Renal cyst Renal stone Urgency-frequency syndrome Surgical History H/O total hysterectomy Social History Alcohol intake: never Patient Tobacco Use Status: Never used Tobacco Substance Use Type: Caffiene Advance Directives Date on File: 04/12/22 Review of Systems Const All systems reviewed & are unremarkable except as noted in HPI and below Physical Exam Vital Signs: Last Vital Signs Pulse 79 09/18/24 15:05 BP 162/70 H 09/18/24 15:05 BMI result Body Mass Index 34.7 Const General: no acute distress, alert and awake Orientation/consciousness: patient oriented x3 Resp Effort & Inspection: normal respiratory effort and able to speak in complete sentences Skin Other: r upper thigh: 3 cm area of induration without overlying erythema, nontender. some evidence of flucutant discharge noted on dressing. Multiple surrounding skin ulcers Neuro General: patient oriented x3 Extrem Other: Upper inner thigh right with areas skin irritation an open wound located posterior with no undrained collection palpable. There is minimal tenderness to palpation as well. Multiple healing scars are noted in the area from previous infections. Assessment & Plan Assessment & Plan (1) Abscess of skin or subcutaneous tissue: Comment: right upper thigh Code(s): L02.91 - Cutaneous abscess, unspecified Category: Medical Qualifiers: Laterality: right Site of cutaneous abscess: extremity Site of cutaneous abscess of extremity: lower extremity Qualified Code(s): L02.415 - Cutaneous abscess of right lower limb Plan 74-year-old female patient presenting with an infection of the upper inner thigh right leg possibly related to irritation from a incontinent pad. Wound is open and draining and does not require incision and drainage at this time. I recommended adding Ceftin to her antibiotics which previously helped her infection. She will return in 1 week for wound examination. Medications: Refilled cefuroxime axetil 500 mg PO BID 14 tabs 0RF Coding Level of Care Code Est Pt Level 4 (49473) Diagnoses Abscess of skin or subcutaneous tissue L02.415 Laterality: right Site of cutaneous abscess: extremity Site of cutaneous abscess of extremity: lower extremity
[2024-09-18 15:05] VITALS: BP 162/70; PULSE 79; BMI 34.7
--- OUTSIDE RECORDS SUMMARY | 2024-09-18 15:50 | XMS_ITS | Clinical Summary ---
Author Organization [facility] Address [address] [place] [address] Phone Care Team Providers Care Radiologic Technologist Chief Name Role Phone Washington Banda MD Primary Care Provider +1- [phone] Allergies Active Allergy Reactions Criticality Noted Date [...] 92 03/27/2024 5:30 PM EST Temperature 36.9 C (98.5 F) 03/27/2024 5:30 PM EST Respiratory Rate 18 03/27/2024 5:30 PM EST [...] this topic Medical Devices Implanted Type Area Customer Service Analyst Device Identifier Shelf Expiration Date Model / Serial / Lot Stent Uret [id number] Stretch W/O Gw - Sn/A - [id number] Implanted:Qty: 1 on 01/30/2024 by Malik Dolan MD at [facility] Stents Left: Ureter [employer]GYN[employer]OLG Y 07/17/2026 [id number] / N/A / [id number] Procedures Procedure Name Priority Date/Time Associated Diagnosis [...] mmol/L LAB CHEMISTRY METHOD 03/05/2024 6:59 AM [facility] Potassium 4.7 3.5 - 5.5 mmol/L LAB CHEMISTRY METHOD 03/05/2024 6:59 AM [facility] Chloride 108 96 - 110 mmol/L LAB CHEMISTRY METHOD 03/05/2024 6:59 AM [facility] CO2 31 21 - 32 mmol/L LAB CHEMISTRY METHOD 03/05/2024 6:59 AM [facility] Anion Gap 4 3 - 11 LAB CHEMISTRY METHOD 03/05/2024 6:59 AM [facility] Glucose 123(H) 70 - 100 mg/dL LAB CHEMISTRY METHOD 03/05/2024 6:59 AM [facility] BUN 14 5 - 25 mg/dL LAB CHEMISTRY METHOD 03/05/2024 6:59 AM [facility] Creatinine 0.76 0.50 - 1.10 mg/dL LAB CHEMISTRY METHOD 03/05/2024 6:59 AM [facility] eGFR 83 >=60 mL/min/1. 73m2 LAB CHEMISTRY METHOD 03/05/2024 6:59 AM [facility] Comment:Calculation based on the Chronic Kidney Disease Epidemiology Collaboration (CKD-EPI) equation refit without adjustment for race. BUN/Creatinine Ratio 18.4 LAB CHEMISTRY METHOD 03/05/2024 6:59 AM [facility] Calcium 9.2 8.5 - 10.5 mg/dL LAB CHEMISTRY METHOD 03/05/2024 6:59 AM EST [facility] Blood Venous blood specimen / Unknown Venipuncture / Unknown 03/05/2024 5:29 AM EST 03/05/2024 6:26 AM EST us Jermaine Gold MD LAB BLOOD ORDERABLES Final Resul t [facility] [address] [place] [address], * TERESE SCREENING DIGITAL (11/12/2019 9:29 AM EDT) Anatomical Region Laterality Modality Mammography 11/12/2019 6:54 AM EDT Narrative 11/12/2019 9:[address] [facility] Diagnostic Imaging Department [address] [place] [address] Patient: LOUISE POMPA D.O.B./Age/Sex: 1950 - 69 - F Unit#: [id number] [facility] Ordering Physician: WASHINGTON BANDA MD Terese Screening Digital - 11/12/19 - 0751 INDICATION: SCREENING COMPARISON: [facility] mammograms dating back to 06/10/2014 TECHNIQUE: CC and MLO views of the breasts were obtained, using full field digital mammography with 3D tomosynthesis views in the MLO projection. A cleavage view was also obtained. Anterior compression views of each breast obtained in CC projection. Computer aided detection with the [employer] 7.2-H was employed. FINDINGS: The breasts contain scattered fibroglandular tissues. No suspicious masses, suspicious microcalcifications, or areas of architectural distortion are identified. Benign-appearing breast calcifications are present bilaterally. There are no secondary signs of breast malignancy. Compared to the prior exam, no adverse interval change. IMPRESSION: No specific mammographic evidence of breast malignancy. Lack of an imaging correlate should not deter or delay biopsy of a clinically significant palpable finding. BI-RADS - Category 2 - Benign finding 3342F, 7025F Annual screening mammography is recommended. Patient entered into a reminder system with a target date for the next mammogram. G0202 / 70072 , 99869 Dictating Physician: LUIS ALFREDO THOMAS MD Electronically Signed by: LUIS ALFREDO THOMAS MD Dic Date/Time: 11/12/19921 Sign date/Time: 11/12/19928 Procedure Note Luis Alfredo Thomas MD - 03/10/2022 [facility] Diagnostic Imaging Department [address] [place] [address] Patient: LOUISE POMPA./Age/Sex: 1950 69 - F Unit#: [id number] Location/Status: SPDIMAM/REG CLI Mnemonic/Ordering Site: [facility] Ordering Physician: WASHINGTON BANDA MD [...] inCC projection. Computer aided detection with the [employer] 7.2-H was employed. FINDINGS: The breasts contain [...] a target date for the next mammogram. G0202 / 93273 , 62772 Dictating Physician: LUIS ALFREDO THOMAS MD Electronically Signed by: LUIS ALFREDO THOMAS MD Dic Date/Time: 11/12/19921 Sign date/Time: [...] currently active code status orders. Care Teams Radiologic Technologist Chief Relationship Specialty Start Date End Date Washington Banda MD [address] [place] [phone] PCP - General Internal Medicine 01/27/24
== END 2024-09-18 15:19 | disposition home or self-care (01) ==
LOC: HO.HGS 14:54
PROVIDERS: PCP Internal Medicine; Visit Provider Surgery
DX: L02.415 Cutaneous abscess of right lower limb (principal)
CPT/HCPCS: 99214

== ENCOUNTER → 2024-09-18 14:54 | Outpatient (BNVA) | payer MEDICARE, OTHER, SELFPAY | PROVIDERS: PCP Internal Medicine; Visit Provider Surgery | DX: L02.415 Cutaneous abscess of right lower limb (principal) | CPT/HCPCS: 99212 ==

== ENCOUNTER 2024-10-02 11:07 | Outpatient (AMB) | payer MEDICARE, OTHER, SELFPAY ==
--- NOTE | 2024-10-02 11:10 | A.OFFVIS_ITS ---
Vital Signs 3 10/02/24 11:19 Height 5 ft 3 in Weight 196 lb 8 oz BMI 34.8 BP 188/88 H Blood Pressure Location Lt brachial Position Sitting Pulse 65 Intake Visit Reasons: right upper thigh abscess Intake Note: Patient is seen in office for 2 weeks follow up visit, following abscess of the upper right leg. Pt c/o: per pt is healing no longer has any discharge or applying gauze, has a couple more antbx left Hvac Controls Technician Required: No Accompanied by: Self / Same As Patient Allergies acetaminophen (From PERCOCET) Adverse Reaction (Unknown, Verified 10/02/24 11:19) Headache oxycodone (Percocet) Adverse Reaction (Unknown, Verified 10/02/24 11:19) headache Medication List - Last Reconciled 10/02/24 by Trent Dsouza MD amitriptyline 25 - 50 mg PO BEDTIME PRN amlodipine 10 mg PO DAILY antiarthritic combination no.2 (glucosamine-chondroitin) mg PO calcium carbonate (Calcium 600) 600 mg PO DAILY cefuroxime axetil 500 mg PO BID cholecalciferol (vitamin D3) 25 mcg PO DAILY compr.stocking,knee,long,x-lrg As directed cyclobenzaprine 10 mg PO TID PRN diclofenac sodium 1% 4 grams topical QID doxycycline hyclate 100 mg PO BID 7 days hydrochlorothiazide 12.5 mg PO DAILY losartan 100 mg PO DAILY metformin ER 500 mg PO DAILY metoprolol succinate ER 100 mg PO DAILY mupirocin 2% 1 appl topical BID 7 days naproxen (Naprosyn) 500 mg PO BID oxybutynin chloride ER 10 mg PO DAILY 30 days prednisone 40 mg (2 x 20 mg) PO DAILY vibegron (Gemtesa) 75 mg PO DAILY 30 days HPI Comments Details: 74-year-old female patient returning for a wound check of the skin infection involving the right upper inner thigh. She was seen on 09/18/2024 with an area of increased redness and pain possibly due to an incontinence pad. She was started on Ceftin for 10 days and reports tolerating this medication well without any GI upset. She has a several days more of the antibiotic to take. She feels the wounds are much improved with no further pain, redness or discharge. [facility] Medical History Aftercare following right elbow joint replacement surgery delivery affecting Frequency of urination Renal cyst Renal stone Urgency-frequency syndrome Surgical History H/O total hysterectomy Social History Alcohol intake: never Patient Tobacco Use Status: Never used Tobacco Substance Use Type: Caffiene Advance Directives Date on File: 04/12/22 Review of Systems Const All systems reviewed & are unremarkable except as noted in HPI and below Physical Exam Const General: no acute distress, alert and awake Orientation/consciousness: patient oriented x3 Resp Effort & Inspection: normal respiratory effort and able to speak in complete sentences Skin Other: Examination of the right upper inner thigh reveals residual scar tissue from the previous skin infection however no active skin infection was noted at this time. Wounds are completely healed with no redness or discharge noted. Full body images: 2 1. Site of skin infection right upper inner thigh Neuro General: patient oriented x3 Extrem Other: Upper inner thigh right with areas skin irritation an open wound located posterior with no undrained collection palpable. There is minimal tenderness to palpation as well. Multiple healing scars are noted in the area from previous infections. Assessment & Plan Assessment & Plan (1) Abscess of skin or subcutaneous tissue: Comment: right upper thigh Code(s): L02.91 - Cutaneous abscess, unspecified Category: Medical Qualifiers: Laterality: right Site of cutaneous abscess: extremity Site of cutaneous abscess of extremity: lower extremity Qualified Code(s): L02.415 - Cutaneous abscess of right lower limb Plan 74-year-old female patient returning for wound check following a recent infection of the right upper inner thigh. She tolerated the antibiotics without any ill effects. Her wounds are now clean and intact without any further infection. She will call as needed for recurrence of this infection. Coding Level of Care Code Est Pt Level 3 (96346) Diagnoses Abscess of skin or subcutaneous tissue L02.415 Laterality: right Site of cutaneous abscess: extremity Site of cutaneous abscess of extremity: lower extremity
[2024-10-02 11:19] VITALS: BP 188/88; PULSE 65; BMI 34.8
--- OUTSIDE RECORDS SUMMARY | 2024-10-02 12:31 | XMS_ITS | Clinical Summary ---
Author Organization [facility] Address [address] [place] [address] Phone Care Team Providers Care Senior Counsel Name Role Phone Washington Banda MD Primary Care Provider +1- [phone] Allergies Active Allergy Reactions Criticality Noted Date [...] for your loved ones. For example, child nutrition assistant or elderly care for an older adult? [...] 12/27/2023 Osteoporosis Screening (Bone Density Screening) 12/27/2023 Influenza Vaccine (#1) 2024 4, 12/09/2022, 12/04/2021, Additional history exists Social Influencers of Health Screening 02/28/2025 02/29/2024 Falls Risk Assessment 03/05/2025 03/05/2024 Hypertension/CHF/CAD Annual BMP Blood Test 03/05/2025 03/05/2024, 03/04/2024, 03/03/2024, Additional history exists Colorectal Cancer Screening: FIT-DNA (Cologuard) Discontinued 01/28/2020, 01/28/2020 RSV Immunization Adult Patients Completed 11/19/2023 HIB [...] this topic Medical Devices Implanted Type Area Film Editor Supervisor Device Identifier Shelf Expiration Date Model / Serial / Lot Stent Uret [id number] Stretch W/O Gw - Sn/A - [id number] Implanted:Qty: 1 on 01/30/2024 by Malik Dolan MD at [facility] Stents Left: Ureter [employer]GYN[employer]OLG Y 07/17/2026 [id number] / N/A / [id number] Procedures Procedure Name Priority Date/Time Associated Diagnosis [...] [facility] Comment:Calculation based on the Chronic Kidney Disease Epidemiology Collaboration (CKD-EPI) equation refit without adjustment for race. BUN/Creatinine Ratio 18.4 LAB CHEMISTRY METHOD 03/05/2024 6:59 AM [facility] Calcium 9.2 8.5 - 10.5 mg/dL LAB CHEMISTRY METHOD 03/05/2024 6:59 AM EST [facility] Blood Venous blood specimen / Unknown Venipuncture / Unknown 03/05/2024 5:29 AM EST 03/05/2024 6:26 AM EST us Jermaine Gold MD LAB BLOOD ORDERABLES Final Resul t [facility] [address] [place] [address], * TERESE SCREENING DIGITAL (11/12/2019 9:29 AM EDT) Anatomical Region Laterality Modality Mammography 11/12/2019 6:54 AM EDT Narrative 11/12/2019 9:29 AM EDT [facility] Diagnostic Imaging Department [address] [place] [address] Patient: ALETHAROSELYN D.O.B./Age/Sex: 1950 - 69 - F Unit#: [id number] [facility] Mnemonic/Ordering Site: DIGSC/SPMAM Ordering Physician: WASHINGTON BANDA MD Terese Screening Digital - 11/12/19 - 0751 INDICATION: SCREENING COMPARISON: [facility] mammograms dating back to 06/10/2014 TECHNIQUE: CC and MLO views of the breasts were obtained, using full field digital mammography with 3D tomosynthesis views in the MLO projection. A cleavage view was also obtained. Anterior compression views of each breast obtained in CC projection. Computer aided detection with the PS DEPT. 7.2-H was employed. FINDINGS: The breasts contain [...] target date for the next mammogram. G0202 [id number]) , 10637 Dictating Physician: MARIO ALBERTO THOMAS MD Electronically Signed by: MARIO ALBERTO THOMAS MD Dic Date/Time: 11/12/19921 Sign date/Time: 11/12/19928 Procedure Note Mario Alberto Thomas MD - 03/10/2022 [facility] Diagnostic Imaging Department [address] [place] [address] Patient: ALETHAJARRETT ANTHONYLEELEE Bailey D.O.B./Age/Sex: 1950 69 - F Unit#: [id number] [facility]Ordering Site: [facility] Ordering Physician: WASHINGTON BANDA MD Terese Screening Digital - 11/12/19 - 0751 INDICATION: SCREENING COMPARISON: [facility] mammograms dating back to 06/10/2014 TECHNIQUE: CC and MLO views of the breasts were obtained, using full field digital mammography with 3D tomosynthesis views in the MLO projection. A cleavageview was also obtained. Anterior compression views of each breast obtained inCC projection. Computer aided detection with the PS DEPT. 7.2-H was employed. FINDINGS: The breasts contain [...] target date for the next mammogram. G0202 [id number]) , 26628 Dictating Physician: MARIO ALBERTO THOMAS MD Electronically [...] currently active code status orders. Care Teams Senior Counsel Relationship Specialty Start Date End Date Washington Banda MD [address] [place] [phone] PCP - General Internal Medicine 01/27/24
== END 2024-10-02 11:22 | disposition home or self-care (01) ==
LOC: HO.HGS 11:08
PROVIDERS: PCP Internal Medicine; Visit Provider Surgery
DX: L02.415 Cutaneous abscess of right lower limb (principal)
CPT/HCPCS: 99213

== ENCOUNTER → 2024-10-02 11:07 | Outpatient (BNVA) | payer MEDICARE, OTHER, SELFPAY | PROVIDERS: PCP Internal Medicine; Visit Provider Surgery | DX: L02.415 Cutaneous abscess of right lower limb (principal); Z79.2 Long term (current) use of antibiotics; Z79.84 Long term (current) use of oral hypoglycemic drugs; Z79.52 Long term (current) use of systemic steroids; Z79.899 Other long term (current) drug therapy | CPT/HCPCS: 99212 ==

== ENCOUNTER 2024-11-13 12:48 | Outpatient (REF) | payer MEDICARE, OTHER, SELFPAY ==
--- OUTSIDE RECORDS SUMMARY | 2024-11-13 13:30 | XMS_ITS | Encounter Summary ---
Author Organization [facility] Address [address] [place] [address] Care Team Providers Care Office Support Assistant Name Role Phone Washington Arias MD Primary Care Provider +1- [phone] Encounter Details Date Type Department Care Team (Late st Contact Info) Description 02/07/2024 Lab Requisition [facility] - Main Lab [address] [place] [address] Malik Dolan MD [address] [facility] [address] [place] [address] Urinary tract infection, site not specified Social [...] MICROBIOLOGY - G ENERAL ORDERABLES Final Result [facility] [address] [place] [address], documented in this encounter Visit Diagnoses Diagnosis Urinary tract infection, site not specified documented in this encounter Additional Health Concerns Infection Onset Date Last Indicated Resolved Time Gastrointestinal Rule-Out 02/28/2024 02/28/2024 7:04 PM EST documented as of this encounter Care Teams Office Support Assistant Relationship Specialty Start Date End Date Washington Arias MD [address] [place] [phone] PCP - General Internal Medicine 01/27/24 documented as of this encounter
--- OUTSIDE RECORDS SUMMARY | 2024-11-13 13:30 | XMS_ITS | Clinical Summary ---
Author Organization [facility] Address [address] [place] [address] Phone Care Team Providers Care Family Practice Physician Name Role Phone Washington Banda MD Primary Care Provider +1- [phone] Allergies Active Allergy Reactions Criticality Noted Date [...] care for your loved ones. For example, manager child or elderly care for an older [...] Panel) 12/27/2023 Colorectal Cancer Screening: Colonoscopy 12/27/2023 Hepatitis C Screening 12/27/2023 Medicare Annual Wellness Visit 12/27/2023 Osteoporosis Screening (Bone Density Screening) 12/27/2023 Depression Screening 03/21/2024 Influenza Vaccine (#1) 2024 4, 12/09/2022, 12/04/2021, [...] this topic Medical Devices Implanted Type Area Tapping Machine Operator Automatic Device Identifier Shelf Expiration Date Model / Serial / Lot Stent Uret [id number] Stretch W/O Gw - Sn/A - [id number] Implanted:Qty: 1 on 01/30/2024 by Malik Dolan MD at [facility] Stents Left: Ureter [employer]GYNECOLG Y 07/17/2026 [id number] / N/A / [id number] Procedures Procedure Name Priority Date/Time Associated Diagnosis [...] mmol/L LAB CHEMISTRY METHOD 03/05/2024 6:[address] [facility] Potassium 4.7 3.5 - 5.5 mmol/L LAB CHEMISTRY METHOD 03/05/2024 6:[address] [facility] Chloride 108 96 - 110 mmol/L LAB CHEMISTRY METHOD 03/05/2024 6:[address] [facility] CO2 31 21 - 32 mmol/L LAB CHEMISTRY METHOD 03/05/2024 6:[address] [facility] Anion Gap 4 3 - 11 LAB CHEMISTRY METHOD 03/05/2024 6:[address] [facility] Glucose 123(H) 70 - 100 mg/dL LAB CHEMISTRY METHOD 03/05/2024 6:[address] [facility] BUN 14 5 - 25 mg/dL LAB CHEMISTRY METHOD 03/05/2024 6:[address] [facility] Creatinine 0.76 0.50 - 1.10 mg/dL LAB CHEMISTRY METHOD 03/05/2024 6:[address] [facility] eGFR 83 >=60 mL/min/1. 73m2 LAB CHEMISTRY METHOD 03/05/2024 6:[address] [facility] Comment:Calculation based on the Chronic Kidney Disease Epidemiology Collaboration (CKD-EPI) equation refit without adjustment for race. BUN/Creatinine Ratio 18.4 LAB CHEMISTRY METHOD 03/05/2024 6:[address] [facility] Calcium 9.2 8.5 - 10.5 mg/dL LAB CHEMISTRY METHOD 03/05/2024 6:59 AM EST [facility] Blood Venous blood specimen / Unknown Venipuncture / Unknown 03/05/2024 5:29 AM EST 03/05/2024 6:26 AM EST us Jermaine Gold MD LAB BLOOD ORDERABLES Final Resul t [facility] [address] [place] [address], * TERESE SCREENING DIGITAL (11/12/2019 9:29 AM EDT) Anatomical Region Laterality Modality Mammography 11/12/2019 6:54 AM EDT Narrative 11/12/2019 9:29 AM EDT [facility] Diagnostic Imaging Department [address] [place] [address] Patient: ALETHAROSELYN D.O.B./Age/Sex: 1950 - 69 - F Unit#: [id number] [facility] Mn[facility]onic/Ordering Site: DIGSC/SPMAM Ordering Physician: WASHINGTON BANDA MD Terese Screening Digital - 11/12/19 - 0751 INDICATION: SCREENING COMPARISON: [facility] mammograms dating back to 06/10/2014 TECHNIQUE: CC and MLO views of the breasts were obtained, using full field digital mammography with 3D tomosynthesis views in the MLO projection. A cleavage view was also obtained. Anterior compression views of each breast obtained in CC projection. Computer aided detection with the [employer] 7.2-H was employed. FINDINGS: The breasts contain [...] target date for the next mammogram. G0202 [id number]) , [id number] Dictating Physician: MARIO ALBERTO THOMAS MD Electronically Signed by: MARIO ALBERTO THOMAS MD Dic Date/Time: 11/12/19921 Sign date/Time: 11/12/19928 Procedure Note Mario Alberto Thomas MD - 03/10/2022 [facility] Diagnostic Imaging Department [address] [place] [address] Patient: ALETHAJARRETT ANTHONYLEELEE Bailey D.O.B./Age/Sex: 1950 69 - F Unit#: [id number] [facility]Ordering Site: [facility] Ordering Physician: WASHINGTON BANDA MD Terese Screening Digital - 11/12/19 - 0751 INDICATION: SCREENING COMPARISON: [facility] mammograms dating back to 06/10/2014 TECHNIQUE: CC and MLO views of the breasts were obtained, using full field digital mammography with 3D tomosynthesis views in the MLO projection. A cleavageview was also obtained. Anterior compression views of each breast obtained inCC projection. Computer aided detection with the [employer] 7.2-H was employed. FINDINGS: The breasts contain [...] target date for the next mammogram. G0202 [id number]) , 23074 Dictating Physician: MARIO ALBERTO THOMAS MD Electronically [...] currently active code status orders. Care Teams Family Practice Physician Relationship Specialty Start Date End Date Washington Banda MD [address] [place] [phone] PCP - General Internal Medicine 01/27/24
== END 2024-11-13 12:49 | disposition home or self-care (01) ==
LOC: HO.MAMMO 12:48
PROVIDERS: PCP Internal Medicine; Visit Provider Internal Medicine
DX: Z12.31 Encounter for screening mammogram for malignant neoplasm of breast (principal)
CPT/HCPCS: 77063; 77067

== ENCOUNTER → 2024-11-13 13:15 | Outpatient (BNV) | payer MEDICARE, OTHER, SELFPAY | PROVIDERS: PCP Internal Medicine; Visit Provider Internal Medicine | DX: Z12.31 Encounter for screening mammogram for malignant neoplasm of breast (principal) | CPT/HCPCS: 77063; 77067 ==

== ENCOUNTER 2025-01-04 12:59 | Outpatient (REF) | payer MEDICARE, OTHER, SELFPAY ==
--- NOTE | ~2025-01-04 | MM_ITS ---
EXAMINATION: DXA BONE DENSITY AXIAL HISTORY: OSTEOPOROSIS. History of right wrist fracture. Patient takes vitamin D and calcium. TECHNIQUE: Rescale Dual energy absorptiometry (DEXA) of the lumbar spine, total left hip, and femoral neck was performed. COMPARISON: None FINDINGS: The bone mineral density of the lumbar spine is 0.969 g/cm2, corresponding to a T-score of -1.8, and a Z-score of -0.9. This is indicative of osteopenia. The bone mineral density of the left total hip is 0.621 g/cm2, corresponding to a T-score of -3.1, and a Z-score of -2.1. This is indicative of osteoporosis. The bone mineral density of the left femoral neck is 0.701 g/cm2, corresponding to a T-score of -2.4, and a Z-score of -1.2. This is indicative of osteopenia. FRACTURE RISK: The FRAX index suggests a ten year probability of major osteoporotic fracture of 22.5%, and of hip fracture 6.1%. MM/XR DEXA axial skeleton IMPRESSION: Based on bone mineral density, and according to World Health Organization (WHO) criteria, the diagnosis is consistent with osteoporosis based on lowest T score of -3.1 in the left total femur. Fracture risk is high. Pharmacological treatment if not already prescribed should be considered. Follow-up bone density exam to evaluate response to therapy in 1 year recommended. Statistically, 68% of repeat scans fall within 1 SD (+/- 0.010 g/cm2 for AP spine L1-L4) and 1 SD (+/- 0.012 g/cm2 for femur total) FRAX is a trademark of the [employer]'s [place] for Metabolic Bone Disease, a World Health Organization (WHO) Collaborating Center. Electronically signed by: Sally Colunga MD 01/04/2025 01:56 PM EDT
--- OUTSIDE RECORDS SUMMARY | 2025-01-04 15:36 | XMS_ITS | Clinical Summary ---
Author Organization [facility] Address [address] [place] [address] Phone Care Team Providers Care Supervisor Stitching Department Name Role Phone Washington Banda MD Primary Care Provider +1- [phone] Allergies Active Allergy Reactions Criticality Noted Date Comments Oxycodone Headache Medium 01/30/2024 Medications calcium carbonate/vitami n D3 (CALCIUM 600 WITH VITAMIN D3 ORAL) Take by mouth. Active amLODIPine (NORVASC) 10 mg tablet Take 1 tablet (10 mg total) by mouth 1 (one) time each day. 03/05/2024 Active metoprolol succinate (TOPROL-XL) 100 mg 24 hr tablet Take 1 tablet (100 mg total) by mouth 1 (one) time each day. Do not crush or chew. 30 each 11 03/05/2024 Active HYDROCHLOROTHIAZ SUNG ORAL Take 12.5 mg by mouth. Active Active Problems Problem Noted Date Diagnosed Date Acute blood loss anemia 03/26/2024 Resolved Problems Problem Noted Date Diagnosed Date Resolved Date Acute cystitis without hematuria 02/28/2024 03/05/2024 Immunizations Immunization Administration Dates Next Due Moderna SARS-CoV-2 COVID-19, [...] care for your loved ones. For example, director child or elderly care for an older [...] Date Recorded What is your living situation? Unrecognized valu e 02/29/2024 Interpersonal Safety Answer Date Record ed Physical Abuse Unrecognized value 02/29/2024 Verbal Abuse Unrecognized value 02/29/2024 Comments Unknown Sex and Gender Information [...] Health Maintenance Due Date Last Done Comments Colorectal Cancer Screening: Colonoscopy 1950 DTaP,Tdap,and Td Vaccines (1 - Tdap) 08/10/1970 Pneumococcal Vaccine: 50+ Years (1 of 1 - PCV) 08/10/2001 Zoster Vaccines (2 of 2) 06/30/2019 05/05/2019 Breast Cancer Screening 11/11/2021 11/12/19 20, 06/28/2018, 06/13/2017 Cholesterol Screening (Lipid Panel) 12/27/2023 Hepatitis C Screening 12/27/2023 Medicare Annual Wellness Visit 12/27/2023 Osteoporosis Screening (Bone Density Screening) 12/27/2023 Depression Screening 03/21/2024 COVID-19 Vaccine ( season) 2024 12/09/2022, 12/04/2021, 07/03/2021, Additional history exists Influenza Vaccine (#1) 2024 4, 12/09/2022, 12/04/2021, [...] this topic Medical Devices Implanted Type Area Pickle Maker Device Identifier Shelf Expiration Date Model / Serial / Lot Stent Uret [id number] Stretch W/O Gw - Sn/A - [id number] Implanted:Qty: 1 on 01/30/2024 by Malik Dolan MD at [facility] Stents Left: Ureter [employer]/GYNECOLG Y 07/17/2026 [id number] / N/A / [id number] Procedures Procedure Name Priority Date/Time Associated Diagnosis [...] 03/05/2024 6:59 AM [facility] Creatinine 0.76 0.50 - 1.10 mg/dL LAB CHEMISTRY METHOD 03/05/2024 6:59 AM [facility] eGFR 83 >=60 mL/min/1. 73m2 LAB CHEMISTRY METHOD 03/05/2024 6:59 AM [facility] Comment:Calculation based on the Chronic [...] MD LAB BLOOD ORDERABLES Final Resul t [facility] [address] [place] [address], * TERESE SCREENING DIGITAL (11/12/2019 9:29 AM EDT) Anatomical Region Laterality Modality Mammography 11/12/2019 6:54 AM EDT Narrative 11/12/2019 9:29 AM EDT [facility] Diagnostic Imaging Department [address] [place] [address] Patient: ROSELYN POMPA D.O.B./Age/Sex: 1950 - 69 - F Unit#: [id number] Location/Status: [facility] Mnemonic/Ordering Site: [facility] Ordering Physician: WASHINGTON BANDA MD [facility] Screening Digital - 11/12/19 - 0751 INDICATION: SCREENING COMPARISON: mammograms dating back to 06/10/2014 TECHNIQUE: CC and MLO views of the breasts were obtained, using full field digital mammography with 3D tomosynthesis views in the MLO projection. A cleavage view was also obtained. Anterior compression views of each breast obtained in CC projection. Computer aided detection with the [employer] 7.2-H was employed. FINDINGS: The breasts contain [...] target date for the next mammogram. G0202 13600) , [id number] Dictating Physician: MARIO ALBERTO THOMAS MD Electronically Signed by: MARIO ALBERTO THOMAS MD Dic Date/Time: 11/12/19921 Sign date/Time: 11/12/19928 Procedure Note Mario Alberto Thomas MD - 03/10/2022 [facility] Diagnostic Imaging Department [address] [place] [address] Patient: ALETHAROSELYNJAZMIN DorantesO.B./Age/Sex: 1950 - 69 - F Unit#: [id number] [facility] Mnemonic/Ordering Site: [facility] Ordering Physician: WASHINGTON BANDA MD Terese Screening Digital - 11/12/19 - 0751 INDICATION: SCREENING COMPARISON: mammograms dating back to 06/10/2014 TECHNIQUE: CC and MLO views of the breasts were obtained, using full field digital mammography with 3D tomosynthesis views in the MLO projection. A cleavageview was also obtained. Anterior compression views of each breast obtained inCC projection. Computer aided detection with the [employer] 7.2-H was employed. FINDINGS: The breasts contain [...] date for the next mammogram. G0202 / [id number] , 13873 Dictating Physician: MARIO ALBERTO THOMAS MD Electronically Signed by: MARIO ALBERTO THOMAS MD Dic Date/Time: 11/12/19921 Sign date/Time: 11/12/19928 Washington Banda MD IMG BI PROCEDURES Final Re sult from Last 3 Months or Most Recently Relevant to Health Maintenance [facility] COMM[facility] GENERIC COMMERCIAL GENERIC Advance Directives * Full Code - Confirmed [...] currently active code status orders. Care Teams Supervisor Stitching Department Relationship Specialty Start Date End Date Washington Banda MD [address] [place] [phone] PCP - General Internal Medicine 01/27/24
--- OUTSIDE RECORDS SUMMARY | 2025-01-04 15:36 | XMS_ITS | Encounter Summary ---
Author Organization [facility] Address [address] [place] [address] Care Team Providers Care Brick Molder Hand Name Role Phone Washington Arias MD Primary Care Provider +1- [phone] Encounter Details Date Type Department Care Team (Late st Contact Info) Description 02/07/2024 Lab Requisition [facility] - Main Lab [address] [place] [address] Malik Dolan MD [address] [facility] [address] [place] [address] Urinary tract infection, site not specified Social [...] if clinically indicated. 02/08/2024 7:44 AM EST [facility] Other Topography unknown / Unknown 02/06/2024 02/07/2024 10:36 AM EST Malik Dolan MD LAB MICROBIOLOGY - G ENERAL ORDERABLES Final Result [facility] [address] [place] [address], documented in this encounter Visit Diagnoses Diagnosis Urinary tract infection, site not specified documented in this encounter Additional Health Concerns Infection Onset Date Last Indicated Resolved Time Gastrointestinal Rule-Out 02/28/2024 02/28/2024 7:04 PM EST documented as of this encounter Care Teams Brick Molder Hand Relationship Specialty Start Date End Date Washington Arias MD [address] [place] [phone] PCP - General Internal Medicine 01/27/24 documented as of this encounter
== END 2025-01-04 13:00 | disposition home or self-care (01) ==
LOC: HO.MAMMO 12:59
PROVIDERS: Visit Provider Internal Medicine
DX: M81.0 Age-related osteoporosis without current pathological fracture (principal)
CPT/HCPCS: 77080

== ENCOUNTER → 2025-01-04 13:30 | Outpatient (BNV) | payer MEDICARE, OTHER, SELFPAY | PROVIDERS: Visit Provider Radiology Diagnostic Radiology | DX: E28.39 Other primary ovarian failure (principal) | CPT/HCPCS: 77080 ==

== ENCOUNTER 2025-02-06 09:16 | Outpatient (AMB) | payer MEDICARE, OTHER, SELFPAY ==
--- NOTE | 2025-02-06 09:19 | A.OFFVIS_ITS ---
Vital Signs 02/06/25 09:43 Height 5 ft 3 in Weight 204 lb 6 oz BMI 36.2 BP 162/68 H Blood Pressure Location Lt brachial Position Sitting Pulse 86 Intake Visit Reasons: right leg abscess Intake Note: Patient is seen in office for an abscess of the upper right thigh. Pt c/o: had an abscess about 3 weeks ago, was given abx, and has been applying warm compress 3x times a day, states it is currently all healed was on abx, cellulitis and poss [employer] Har[employer] Contractor Required: No Paper Box Maker: Paper Box Maker Present Accompanied by: Self / Same As Patient Allergies acetaminophen (From PERCOCET) Adverse Reaction (Unknown, Verified 02/06/25 09:28) Headache oxycodone (Percocet) Adverse Reaction (Unknown, Verified 02/06/25 09:28) headache HPI HPI right leg abscess: Details: Patient states that about 3-4 weeks ago began having pain similar to her previous episode of cellulitis and abscess. Pain was located towards the right side of the groin in the labia. saw primary care at [facility] who prescribed her antibiotics for which she took the entire course of antibiotics. Reports that there was no longer any pain. The area appears resolved. She denies any drainage from the area, denies any fevers at home. [facility], LAT[facility] Medical History Aftercare following right elbow joint replacement surgery delivery affecting Frequency of urination Renal cyst Renal stone Urgency-frequency syndrome Surgical History H/O total hysterectomy Social History Alcohol intake: never Patient Tobacco Use Status: Never used Tobacco Substance Use Type: Caffiene Advance Directives Date on File: 04/12/22 Physical Exam Vital Signs: Last Vital Signs Pulse 86 02/06/25 09:43 BP 162/68 H 02/06/25 09:43 BMI result Body Mass Index 36.2 Const General: comfortable and no acute distress Orientation/consciousness: patient oriented x3 Other: Paper Box Maker used, MAGDALENA Mendez Right groin: Nontender, no areas of erythema no palpable fluid collection Neuro General: patient oriented x3 Assessment & Plan Assessment & Plan (1) Abscess of skin or subcutaneous tissue: Comment: right upper thigh Code(s): L02.91 - Cutaneous abscess, unspecified Category: Medical Qualifiers: Laterality: right Site of cutaneous abscess: extremity Site of cutaneous abscess of extremity: lower extremity Qualified Code(s): L02.415 - Cutaneous abscess of right lower limb Plan 74-year-old female returning to the office with concern for recurrence of abscess of the right groin. Patient was seen by primary care at [facility] for this, provider recommended warm compresses. Patient reports that the area has resolved at this point, no longer having pain, denies any discharge or drainage from the area. Denies fevers at home. On exam the right groin is unremarkable was unable to appreciate this area of fluctuance that was noted on primary care's exam. The area was nontender not erythematous. She did report that she has urinary incontinence requiring incontinence pads but this is improving. I stressed the importance of keeping this area clean and dry with frequent changes after episodes of incontinence to prevent this from happening in the future. No intervention required at this time, patient can follow up as needed with concerns in the future. Coding Level of Care Code Est Pt Level 3 (90630) Diagnoses Abscess of skin or subcutaneous tissue L02.415 Laterality: right Site of cutaneous abscess: extremity Site of cutaneous abscess of extremity: lower extremity
[2025-02-06 09:43] VITALS: BP 162/68; PULSE 86; BMI 36.2
--- OUTSIDE RECORDS SUMMARY | 2025-02-06 17:11 | XMS_ITS | Encounter Summary ---
Author Organization [facility] Address [address] [place] [address] Care Team Providers Care Continuous Improvement Facilitator Name Role Phone Washington Arias MD Primary Care Provider +1- [phone] Encounter Details Date Type Department Care Team (Late st Contact Info) Description 02/07/2024 Lab Requisition [facility] - Main Lab [address] [place] [address] Malik Dolan MD [address] [facility] [address] [place] [address] Urinary tract infection, site not specified Social [...] if clinically indicated. 02/08/2024 7:44 AM EST [facility] Other Topography unknown / Unknown 02/06/2024 02/07/2024 10:36 AM EST Malik Dolan MD LAB MICROBIOLOGY - G ENERAL ORDERABLES Final Result [facility] [address] [place] [address], documented in this encounter Visit Diagnoses Diagnosis Urinary tract infection, site not specified documented in this encounter Additional Health Concerns Infection Onset Date Last Indicated Resolved Time Gastrointestinal Rule-Out 02/28/2024 02/28/2024 7:04 PM EST documented as of this encounter Care Teams Continuous Improvement Facilitator Relationship Specialty Start Date End Date Washington Arias MD [address] [place] [phone] PCP - General Internal Medicine 01/27/24 documented as of this encounter
--- OUTSIDE RECORDS SUMMARY | 2025-02-06 17:11 | XMS_ITS ---
Author Name [facility] Organization Unknown History of Medication Use Medication Directions Dispensed Refills Start Date End Date Stat us losartan potassium/hydrochlorothiazide active metoprolol succinate act jo amlodipine besylate acti ve Allergies Allergen Reaction Severity Comment Documented Date Source Statu s PERCOCET UNKNOWN REACTION () [facility] Encounters Encounter Type Encounter Reason Primary Diagnosis Location Date Ambulatory TBE Edema, unspecified [facility] 12/27/2024 Care Team Organization Name Specialty Phone Email Start Date End Da te [facility] 01/02/2025 [facility] 12/27/2024
--- OUTSIDE RECORDS SUMMARY | 2025-02-06 17:11 | XMS_ITS | Clinical Summary ---
Author Organization [facility] Address [address] [place] [address] Phone Care Team Providers Care Thread Grinder Tool Name Role Phone Washington Banda MD Primary Care Provider +1- [phone] Allergies Active Allergy Reactions Criticality Noted Date [...] chew. 30 each 11 03/05/2024 Active HYDROCHLOROTHIAZ SUGN ORAL Take 12.5 mg by mouth. Active [...] for your loved ones. For example, child care leader or elderly care for an older adult? [...] this topic Medical Devices Implanted Type Area Matcher Offbearer Device Identifier Shelf Expiration Date Model / Serial / Lot Stent Uret [id number] Stretch W/O Gw - Sn/A - [id number] Implanted:Qty: 1 on 01/30/2024 by Malik Dolan MD at [facility] Stents Left: Ureter [employer] Y 07/17/2026 [id number] / N/A / [id number] Procedures Procedure Name Priority Date/Time Associated Diagnosis [...] 03/05/2024 6:[address] [facility] Blood Venous blood specimen / Unknown Venipuncture / Unknown 03/05/2024 5:29 AM EST 03/05/2024 6:26 AM EST us Jermaine Gold MD LAB BLOOD ORDERABLES Final Resul t [facility] [address] [place] [address], * TERESE SCREENING DIGITAL (11/12/2019 9:29 AM EDT) Anatomical Region Laterality Modality Mammography 11/12/2019 6:54 AM EDT Narrative 11/12/2019 9:29 AM EDT [facility] Diagnostic Imaging Department [address] [place] [address] Patient: ROSELYN POMPA D.O.B./Age/Sex: 1950 - 69 - F Unit#: [id number] Location/Status: [facility] CLI Mnemonic/Ordering Site: [facility] Ordering Physician: WASHINGTON BANDA MD [facility] Screening Digital - 11/12/19 - 0751 INDICATION: SCREENING COMPARISON: [facility] mammograms dating back to 06/10/2014 TECHNIQUE: CC and MLO views of the breasts were obtained, using full field digital mammography with 3D tomosynthesis views in the MLO projection. A cleavage view was also obtained. Anterior compression views of each breast obtained in CC projection. Computer aided detection with the [employer] 7.2-H was employed. FINDINGS: The breasts contain [...] target date for the next mammogram. G0202 [id number]) , [id number] Dictating Physician: MARIO ALBERTO THOMAS MD Electronically Signed by: MARIO ALBERTO THOMAS MD Dic Date/Time: 11/12/19921 Sign date/Time: 11/12/19928 Procedure Note Mario Alberto Thomas MD - 03/10/2022 [facility] Diagnostic Imaging Department [address] [place] [address] Patient: ALETHAROSELYNJAZMIN DorantesO.B./Age/Sex: 1950 - 69 - F Unit#: [id number] [facility]onic[facility]Ordering Site: [facility] Ordering Physician: WASHINGTON BANDA MD [facility] Screening Digital - 11/12/19 - 0751 INDICATION: SCREENING COMPARISON: [facility] mammograms dating back to 06/10/2014 TECHNIQUE: CC and MLO views of the breasts were obtained, using full field digital mammography with 3D tomosynthesis views in the MLO projection. A cleavageview was also obtained. Anterior compression views of each breast obtained inCC projection. Computer aided detection with the [employer] 7.2-H was employed. FINDINGS: The breasts contain [...] date for the next mammogram. G0202 / 74748 , 93550 Dictating Physician: MARIO ALBERTO THOMAS MD Electronically Signed by: MARIO ALBERTO THOMAS MD Dic Date/Time: 11/12/19921 Sign date/Time: 11/12/19928 Washington Banda MD IMG BI PROCEDURES Final Re sult from Last 3 Months or Most Recently Relevant to Health Maintenance Insurance [facility] COMM[facility] GENERIC COMMERCIAL GENERIC Advance Directives * [...] currently active code status orders. Care Teams Thread Grinder Tool Relationship Specialty Start Date End Date Washington Banda MD [address] [place] [phone] PCP - General Internal Medicine 01/27/24
== END 2025-02-06 09:46 | disposition home or self-care (01) ==
LOC: HO.HGS 09:17
DX: L02.415 Cutaneous abscess of right lower limb (principal)
CPT/HCPCS: 99213

== ENCOUNTER → 2025-02-06 09:16 | Outpatient (BNVA) | payer MEDICARE, OTHER, SELFPAY | DX: L02.415 Cutaneous abscess of right lower limb (principal); R32 Unspecified urinary incontinence | CPT/HCPCS: 99212 ==

== ENCOUNTER 2025-02-21 08:48 | Outpatient (AMB) | payer MEDICARE, OTHER, SELFPAY ==
--- NOTE | 2025-02-21 08:59 | A.OFFVIS_ITS ---
Intake Visit Reasons: Urinary incontinence (set)UA+PVR) Intake Note: New patient presents today for initial visit for urinary incontinence Urology Medication:Tamsulosin, Tolterodine Blood Thinner:None Antibiotic Allergies:None PVR:0ml Allergies acetaminophen (From PERCOCET) Adverse Reaction (Unknown, Verified 02/21/25 09:01) Headache oxycodone (Percocet) Adverse Reaction (Unknown, Verified 02/21/25 09:01) headache Medication List - Last Reconciled 02/21/25 by Irina Roblero MD amitriptyline 25 - 50 mg PO BEDTIME PRN amlodipine 10 mg PO DAILY antiarthritic combination no.2 (glucosamine-chondroitin) mg PO calcium carbonate (Calcium 600) 600 mg PO DAILY cefuroxime axetil 500 mg PO BID cholecalciferol (vitamin D3) 25 mcg PO DAILY compr.stocking,knee,long,x-lrg As directed cyclobenzaprine 10 mg PO TID PRN diclofenac sodium 1% 4 grams topical QID doxycycline hyclate 100 mg PO BID 7 days hydrochlorothiazide 12.5 mg PO DAILY losartan 100 mg PO DAILY metformin ER 500 mg PO DAILY metoprolol succinate ER 100 mg PO DAILY mupirocin 2% 1 appl topical BID 7 days naproxen (Naprosyn) 500 mg PO BID prednisone 40 mg (2 x 20 mg) PO DAILY trospium ER 60 mg PO DAILY HPI Comments Details: 02/21/2025-Roselyn is a 74-year-old female who has been seen by Urology in the past 2020 for overactive bladder symptoms she is on oxybutynin. History of Present Illness The patient is a 74 year old female presenting for management of urological conditions. She has a history of overactive bladder, for which she was seen in 2020, and has been taking oxybutynin for approximately four years. She reports continued urinary leakage, requiring her to change incontinence pads every two hours, which is an improvement from every hour when she previously had a UTI. The patient reports having two urinary tract infections within the last year and a half. She has a known 2 cm kidney stone located her kidney, which was she states was not removed during a prior procedure. Results - unable to provide urine sample. Bladder PVR: Minimal urine volume noted. -CTAP wo IV contrast: 04/16/24--11.4 cm cystic lesion in the interpolar region of the left kidney which demonstrates mild wall thickening. 2.2 cm nonobstructing calculus at the lower pole of the left kidney. Plan 1. Overactive Bladder And Urinary Incontinence - Oxybutynin will be discontinued due to concerns about potential cognitive side effects, such as mental fogginess. - A prescription for trospium will be initiated to manage bladder symptoms. - The patient was instructed to take trospium on an empty stomach, either one hour before breakfast or two hours after a meal. - the patient is on HCTZ which may exacerbate symptoms 2. Nephrolithiasis 3. Left renal cyst- complex - An ultrasound and a KUB x-ray will be ordered to re-evaluate [facility] Medical History (Updated 02/21/25 @ 09:43 by Irina Roblero MD) Aftercare following right elbow joint replacement surgery delivery affecting Frequency of urination Renal cyst Renal stone Urgency-frequency syndrome Surgical History H/O total hysterectomy Social History Alcohol intake: never Patient Tobacco Use Status: Never used Tobacco Substance Use Type: Caffiene Advance Directives Date on File: 04/12/22 Review of Systems Const All systems reviewed & are unremarkable except as noted in HPI and below Reports no additional complaints Eyes Reports no additional complaints ENT Reports no additional complaints Card Reports no additional complaints Resp Reports no additional complaints GI Reports no additional complaints Reports as per HPI Musc Reports no additional complaints Skin/Breast Reports system reviewed and no additional complaints, except as documented Neuro Reports no additional complaints Psych Reports no additional complaints Endo Reports no additional complaints Nima/Lymph Reports no additional complaints Aller/Immun Reports no additional complaints Physical Exam Const General: cooperative, healthy appearing and no acute distress Orientation/consciousness: patient oriented x3 HEENT Head: Yes normal to inspection, Yes normocephalic and Yes atraumatic Eyes Conjunctivae: conjunctivae normal Neck Neck: Yes normal visual inspection and Yes trachea midline Chest Chest palpation & inspection: normal inspection of the chest Resp Effort & Inspection: normal respiratory effort GI Inspection: Yes normal to inspection Neuro General: patient oriented x3 Psych Appearance: grossly normal Results Reviewed Results Reviewed: Date of Service: 04/16/24 EXAMINATION: CT ABDOMEN PELVIS WITHOUT IV CONTRAST HISTORY: constipation COMPARISON: Comparison is made with the prior examination dated 07/27/2018. TECHNIQUE: CT scan of the abdomen and pelvis was performed without contrast using standard departmental protocol. Coronal and sagittal reformatted images were generated and reviewed. Oral contrast material was not administered at the request of the referring physician. This CT exam was performed with one or more of the following dose reduction techniques: automated exposure control, adjustment of the mA and/or kV according to patient size, use of iterative reconstruction technique. DLP: 660 mGy-cm FINDINGS: LOWER CHEST: The visualized lung bases are clear. There is no pleural effusion. CARDIOVASCULATURE: The heart is normal in size. There is no pericardial effusion. LIVER: The liver is normal in size and contour. The liver has an unremarkable unenhanced appearance. GALLBLADDER / BILE DUCTS: The gallbladder is distended without evidence of calcified stones. There is no intra or extrahepatic biliary ductal dilatation. SPLEEN: The spleen is normal in size and has an unremarkable unenhanced appearance. PANCREAS: The pancreas has an unremarkable unenhanced appearance. ADRENAL GLANDS: There is mild nodularity of the adrenals without change. KIDNEYS/RETROPERITONEUM: There is a 1.6 cm hypodensity at the lower pole of the right kidney. This cannot be accurately characterize without intravenous contrast. There is a 6.2 cm cyst at the upper pole of the left kidney and a 11.4 cm lesion in the interpolar region which demonstrates mild wall thickening. Accurate evaluation is limited by lack of intravenous contrast. There is a 2.2 cm nonobstructing calculus at the lower pole. No hydronephrosis. LYMPH NODES: No retroperitoneal lymphadenopathy is identified in the abdomen or pelvis. VASCULATURE: The abdominal aorta demonstrates atherosclerotic calcification, but is normal in caliber. MESENTERY/PERITONEUM: No free fluid. No masses. There is no free intraperitoneal gas. STOMACH: There is a small hiatal hernia. The remainder of the stomach is collapsed. SMALL BOWEL: The small bowel is normal in caliber. COLON: There is a large amount of stool throughout the colon. Again seen is a ventral hernia containing the majority of the transverse colon. The opening of the hernia measures approximately 3.7 cm in diameter. There is no evidence of bowel obstruction. APPENDIX: The appendix is not seen, however no inflammatory changes are seen adjacent to the cecum. URINARY BLADDER/PELVIC ORGANS: The urinary bladder is unremarkable. The patient is status post hysterectomy. BONES / SOFT TISSUES: There is degenerative disc disease of the spine. IMPRESSION: 1. Large amount of stool throughout the colon. 2. Large ventral hernia containing the majority of the transverse colon, without evidence of bowel obstruction. 3. Distended gallbladder without evidence of calcified stones. 4. 11.4 cm cystic lesion in the interpolar region of the left kidney which demonstrates mild wall thickening. Ultrasound evaluation is recommended. 5. 2.2 cm nonobstructing calculus at the lower pole of the left kidney. Assessment & Plan Assessment & Plan (1) Overactive bladder: Code(s): N32.81 - Overactive bladder Category: Medical (2) Kidney stone: Code(s): N20.0 - Calculus of kidney Category: Medical (3) Renal cyst, left: Code(s): N28.1 - Cyst of kidney, acquired Category: Medical Plan Plan 1. Overactive Bladder And Urinary Incontinence - Oxybutynin will be discontinued due to concerns about potential cognitive side effects, such as mental fogginess. - A prescription for trospium will be initiated to manage bladder symptoms. - The patient was instructed to take trospium on an empty stomach, either one hour before breakfast or two hours after a meal. - the patient is on HCTZ which may exacerbate symptoms 2. Nephrolithiasis 3. Left renal cyst- complex - An ultrasound and a KUB x-ray will be ordered to re-evaluate Orders: Orders US renal BI Today N20.0 - Calculus of kidney, N28.1 - Cyst of kidney, acquired XR KUB Today N20.0 - Calculus of kidney, N28.1 - Cyst of kidney, acquired Medications: New trospium ER must be taken on empty stomach at least 1 hour before a meal/food with water only 60 mg PO DAILY 30 caps 5RF Discontinued oxybutynin chloride ER Discontinued Reason: Doctor's Order 10 mg PO DAILY 30 days 30 tabs 0RF OAB R35.0 - Frequency of micturition Patient Instructions: The patient had an opportunity to ask questions regarding treatment plan. The patient expressed understanding and agreement with the above treatment plan. The patient is aware they should contact our office by phone for worsening of their current condition or the appearance of new symptoms. Compliance is encouraged with any medications and followup testing that is ordered. It is a privilege to be allowed the opportunity to participate in the urologic care of your patient. If you have any questions or concerns regarding treatment for the above conditions please do not hesitate to contact me. The office telephone contact is [phone]. This note is constructed in part using voice recognition software. While every effort has been made to ensure accuracy radiology transcriptionist errors may have been in cluded. Yours sincerely, Irina Roblero MD Scribe Plan - Not visible on output: Patient was informed and verbally consented to the use of an ambient scribe for clinic note documentation during this visit. Coding Level of Care Code New Pt Level 4 (78704) Diagnoses Overactive bladder N32.81 Kidney stone N20.0 Renal cyst, left N28.1
--- OUTSIDE RECORDS SUMMARY | 2025-02-21 09:32 | XMS_ITS | Encounter Summary ---
Author Organization [facility] Address [address] [place] [address] Care Team Providers Care Ux Developer Name Role Phone Washington Arias MD Primary Care Provider +1- [phone] Encounter Details Date Type Department Care Team (Late st Contact Info) Description 02/07/2024 Lab Requisition [facility] - Main Lab [address] [place] [address] Malik Dolan MD [address] [facility] [address] [place] [address] Urinary tract infection, site not specified Social [...] if clinically indicated. 02/08/2024 7:44 AM EST [facility] Other Topography unknown / Unknown 02/06/2024 02/07/2024 10:36 AM EST Malik Dolan MD LAB MICROBIOLOGY - G ENERAL ORDERABLES Final Result [facility] [address] [place] [address], documented in this encounter Visit Diagnoses Diagnosis Urinary tract infection, site not specified documented in this encounter Additional Health Concerns Infection Onset Date Last Indicated Resolved Time Gastrointestinal Rule-Out 02/28/2024 02/28/2024 7:04 PM EST documented as of this encounter Care Teams Ux Developer Relationship Specialty Start Date End Date Washington Arias MD [address] [place] [phone] PCP - General Internal Medicine 01/27/24 documented as of this encounter
--- OUTSIDE RECORDS SUMMARY | 2025-02-21 09:32 | XMS_ITS | Clinical Summary ---
Author Organization [facility] Address [address] [place] [address] Phone Care Team Providers Care Patch Machine Operator Name Role Phone Washington Banda MD Primary Care Provider [phone] Allergies Active Allergy Reactions Criticality Noted Date [...] for your loved ones. For example, child and youth program assistant or elderly care for an older [...] this topic Medical Devices Implanted Type Area Pressurization Mechanic Device Identifier Shelf Expiration Date Model / Serial / Lot Stent Uret [id number] Stretch W/O Gw - Sn/A - [id number] Implanted:Qty: 1 on 01/30/2024 by Malik Dolan MD at [facility] Stents Left: Ureter [employer] Y 07/17/2026 [id number] / N/A / [id number] Procedures Procedure Name Priority Date/Time Associated Diagnosis [...] mmol/L LAB CHEMISTRY METHOD 03/05/2024 6:59 AM [facility] Potassium 4.7 3.5 - 5.5 mmol/L LAB CHEMISTRY METHOD 03/05/2024 6:59 AM [facility] Chloride 108 96 - 110 mmol/L LAB CHEMISTRY METHOD 03/05/2024 6:59 AM [facility] CO2 31 21 - 32 mmol/L LAB CHEMISTRY METHOD 03/05/2024 6:59 AM [facility] Anion Gap 4 3 - 11 LAB CHEMISTRY METHOD 03/05/2024 6:59 AM [facility] Glucose 123(H) 70 - 100 mg/dL LAB CHEMISTRY METHOD 03/05/2024 6:59 AM [facility] BUN 14 5 - 25 mg/dL LAB CHEMISTRY METHOD 03/05/2024 6:59 AM [facility] Creatinine 0.76 0.50 - 1.10 mg/dL LAB CHEMISTRY METHOD 03/05/2024 6:59 AM [facility] eGFR 83 >=60 mL/min/1. 73m2 LAB CHEMISTRY METHOD 03/05/2024 6:59 AM [facility] Comment:Calculation based on the Chronic Kidney Disease Epidemiology Collaboration (CKD-EPI) equation refit without adjustment for race. BUN/Creatinine Ratio 18.4 LAB CHEMISTRY METHOD 03/05/2024 6:59 AM [facility] Calcium 9.2 8.5 - 10.5 mg/dL LAB CHEMISTRY METHOD 03/05/2024 6:59 AM [facility] Blood Venous blood specimen / Unknown Venipuncture / Unknown 03/05/2024 5:29 AM EST 03/05/2024 6:26 AM EST us Jermaine Gold MD LAB BLOOD ORDERABLES Final Resul t [facility] ([facility]) HOSPITAL LAB [address] [place] [address], * TERESE SCREENING DIGITAL (11/12/2019 9:29 AM EDT) Anatomical Region Laterality Modality Mammography 11/12/2019 6:54 AM EDT Narrative 11/12/2019 9:29 AM EDT [facility] Diagnostic Imaging Department [address] [place] [address] Patient: ROSELYN POMPA D.O.B./Age/Sex: 1950 - 69 - F Unit#: [id number] Location/Status: [facility] CLI Mnemonic/Ordering Site: [facility] Ordering Physician: WASHINGTON BANDA MD [facility] Screening Digital - 11/12/19 - 0751 INDICATION: SCREENING COMPARISON: [facility] mammograms dating back to 06/10/2014 TECHNIQUE: CC and MLO views of the breasts were obtained, using full field digital mammography with 3D tomosynthesis views in the MLO projection. A cleavage view was also obtained. Anterior compression views of each breast obtained in CC projection. Computer aided detection with the [employer] 7.2-H was employed. FINDINGS: The breasts contain [...] target date for the next mammogram. G0202 [id number]) , [id number] Dictating Physician: MARIO ALBERTO THOMAS MD Electronically Signed by: MARIO ALBERTO THOMAS MD Dic Date/Time: 11/12/19921 Sign date/Time: 11/12/19928 Procedure Note Mario Alberto Thomas MD - 03/10/2022 [facility] Diagnostic Imaging Department [address] [place] [address] Patient: ALETHAROSELYNJAZMIN DorantesO.B./Age/Sex: 1950 - 69 - F Unit#: [id number] [facility]Ordering Site: [facility] Ordering Physician: WASHINGTON BANDA MD [facility] Screening Digital - 11/12/19 - 0751 INDICATION: SCREENING COMPARISON: [facility] mammograms dating back to 06/10/2014 TECHNIQUE: CC and MLO views of the breasts were obtained, using full field digital mammography with 3D tomosynthesis views in the MLO projection. A cleavageview was also obtained. Anterior compression views of each breast obtained inCC projection. Computer aided detection with the [employer] 7.2-H was employed. FINDINGS: The breasts contain [...] date for the next mammogram. G0202 / [id number] , [id number] Dictating Physician: MARIO ALBERTO THOMAS MD Electronically Signed by: MARIO ALBERTO THOMAS MD Dic Date/Time: 11/12/19921 Sign date/Time: 11/12/19928 Washington Banda MD IMG BI PROCEDURES Final Re sult from Last 3 Months or Most Recently Relevant to Health Maintenance Insurance [facility]ARE [facility] Advance Directives * Full Code - Confirmed [...] currently active code status orders. Care Teams Patch Machine Operator Relationship Specialty Start Date End Date Washington Banda MD [address] [place] [address] [phone] PCP - General Internal Medicine 01/27/24
== END 2025-02-21 09:52 | disposition home or self-care (01) ==
LOC: HO.HUSH 08:48
PROVIDERS: Visit Provider Urology
DX: N32.81 Overactive bladder (principal); N20.0 Calculus of kidney; N28.1 Cyst of kidney, acquired
CPT/HCPCS: 99204

== ENCOUNTER → 2025-02-21 08:48 | Outpatient (BNVA) | payer MEDICARE, OTHER, SELFPAY | PROVIDERS: Visit Provider Urology | DX: N32.81 Overactive bladder (principal); N20.0 Calculus of kidney; N28.1 Cyst of kidney, acquired | CPT/HCPCS: 51798; 99202 ==